=== PATIENT | male | born 1945 | race Caucasian/White ===

== ENCOUNTER 2016-11-15 09:15 | Day surgery (SDC) ==
[2016-11-15 10:39] LABS: INR 1.33; PROTIME 14.1 Seconds (9.2-11.7); PTT 29.6 Seconds (22.0-36.0)
[2016-11-15 14:33] VITALS: BP 102/68
--- NOTE | 2016-11-15 14:58 | Diag Imaging Result Document ---
PROCEDURE NAME: US PARACENTESIS - 11/15/2016 ULTRASOUND-GUIDED PARACENTESIS: FINDINGS: The risks and benefits of the procedure including the possibility of the bleeding, infection, or reaction to lidocaine were discussed with the patient and he agreed. Following sterile preparation of the skin anterolaterally over the right mid abdomen the abdominal fluid collection was punctured with a paracentesis catheter and 15 liters of slightly turbid yellow fluid was drained. The patient tolerated the procedure well and there were no immediate complications. IMPRESSION: Successful ultrasound-guided paracentesis.
== END 2016-11-15 15:00 | disposition home or self-care (01) ==
LOC: OPS 09:15
PROVIDERS: ATTEND Internal Medicine
DX: R18.8 Other ascites (principal); K74.60 Unspecified cirrhosis of liver; Z79.899 Other long term (current) drug therapy
CPT/HCPCS: 49083; 85610; 85730

== ENCOUNTER 2017-01-16 14:23 | Observation (INO) ==
[2017-01-16 15:09] LABS: URINE CULTURE NEEDED? NO; URINE MICRO REVIEW NEEDED? NO; URINE SOURCE CLEAN CATCH
[2017-01-16 15:13] LABS: BASO% 0.9 % (0.0-0.8); EOS# 0.12 X1000 (0.0-0.7); EOS% 3.7 % (0.0-10.0); HEMATOCRIT 28.2 % (42.0-52.0); HEMOGLOBIN 9.8 g/dL (14.0-18.0); LYMPH# 0.77 X1000 (1.2-3.4); LYMPH% 23.8 % (20.5-51.1); MANUAL DIFF NEEDED? NO; MCH 37.3 PG (27-31); MCHC 34.8 g/dL (33-37); MCV 107.2 FL (81-99); MONO# 0.23 X1000 (0.11-0.59); MONO% 7.1 % (1.7-9.3); MPV 10.2 FL (7.4-10.4); NEUT% 64.5 % (42.2-75.2); PLT 76 X1000 (130-400); RBC 2.63 XMIL (4.7-6.1)
[2017-01-16 15:13] LABS: BILIRUBIN URINE NEGATIVE (NEGATIVE); BLOOD URINE NEGATIVE (NEGATIVE); COLOR YELLOW; GLUCOSE URINE NEGATIVE (NEGATIVE); LEUKOCYTES URINE NEGATIVE (NEGATIVE); NITRITE URINE NEGATIVE (NEGATIVE); PH URINE 5.5; PROTEIN URINE TRACE mg/dL (NEGATIVE); TURBIDITY URINE CLEAR (CLEAR); UR EPITHELIAL CELLS <10 /HPF (<10); URINE BACTERIA NEGATIVE /HPF; URINE RBC <10 /HPF (<10); URINE WBC <10 /HPF (<10); UROBILINOGEN URINE NORMAL (NORMAL)
[2017-01-16 15:33] LABS: ALBUMIN 2.8 g/dL (3.5-5.0); CALCIUM 8.6 mg/dL (8.8-10.2); TOTAL BILIRUBIN 0.92 mg/dL (0.20-1.00); TOTAL PROTEIN 6.9 g/dL (6.3-8.3)
--- NOTE | 2017-01-16 16:52 | PROVIDER DOCUMENTATION ---
HPI-General Adult - General Chief Complaint: General Adult Stated Complaint: FLUID RETENTION Time Seen by Provider: 01/16/17 16:23 Source: patient, family (daughter) Allergies/Adverse Reactions: Patient Allergies Allergy/AdvReac Type Severity Reaction Status Date / Time No Known Allergies Allergy Verified 01/16/17 17:43 Home Medications: Home Medication List Medication Instructions Recorded Confirmed Last Taken Type Furosemide 40 mg PO DAILY PRN 12/06/16 01/16/17 01/15/17 08:00 History Multivitamins/Minerals [Centrum 1 each PO DAILY 12/06/16 01/16/17 01/15/17 08: 00 History Silver] Potassium Chloride 10 meq PO DAILY 12/06/16 01/16/17 01/15/17 08:00 History Tenofovir Disoproxil Fumarate 300 mg PO DAILY 12/06/16 01/16/17 01/15/17 08:00 History [Viread] Iron Carbonyl/Ascorbic Acid 1 each PO DAILY #30 tablet 12/21/16 01/16/17 08:00 Rx [Icar-C] Lactulose 45 ml PO TID@0900,1500,2100 #1 udc 12/21/16 01/16/17 01/15/17 08:00 Rx - History of Present Illness -Gen Adult Nature of Presenting Problems: Pt is 71 y/o M presents to the ED with fluid retention. Pt states having an appointment in [place] but did not make it due to Pt's daughter not having a tag on car. Pt's daughter states coming here instead. Pt states having 3 paracentesis. Pt states recently being d/c from [facility]. Location of Pain/Injury: reports: abdomen, lower extremity Pain Radiation: reports: no radiation Quality of Pain: reports: fullness Severity: reports: moderate Onset/Duration: reports: unsure Timing: reports: still present Context/Activities at Onset: reports: light activity Modifying Factors: improves with: nothing Associated Symptoms: reports: denies symptoms Similar Symptoms Previously?: Yes Recently seen or treated by another doctor?: No Review of Systems - Adult - REVIEW OF SYSTEMS - ADULT Constitutional: denies: chills, fever Eyes: denies: discharge, blurred vision, double vision Ears, Nose, Mouth & Throat: denies: ear pain, nose pain, throat pain Cardiovascular: denies: chest pain, heart murmur, irregular heart rate Respiratory: denies: cough, shortness of breath, wheezing Gastrointestinal: reports: abdominal pain. denies: diarrhea, nausea, vomiting Genitourinary: denies: dysuria, hematuria Musculoskeletal: denies: bone pain, joint pain, neck pain Integumentary: denies: hives, itching Neurological: denies: dizziness/vertigo, headache/migraines Psychiatric: reports: no symptoms reported Endocrine: reports: no symptoms reported Hematologic/Lymphatic: reports: no symptoms reported Allergic/Immunologic: reports: no symptoms reported All Other Systems: Reviewed and Negative Past History - Adult - PAST MEDICAL HISTORY-ADULT Review of Records: reports: Nursing Assessment Review, Medications Reviewed, Social history reviewed & non-contributory. Major Childhood Illnesses: reports: denies history Cardiovascular: reports: HTN, hyperlipidemia Respiratory: reports: denies history Gastrointestinal: reports: hepatitis (b), liver disease (cirrhosis) Obstetrical/Gynecological: reports: denies history Genitourinary: reports: denies history Musculoskeletal: reports: denies history Neurological: reports: denies history Endocrine/Immune: reports: Diabetes Other Conditions: reports: denies history - PRIOR SURGERIES/PROCEDURES Surgical/Procedure History: reports: reviewed, not pertinent - IMMUNIZATION STATUS Childhood Immunizations: See Nurse Assessment Flu Vaccine: See Nurse Assessment - FAMILY HISTORY Family History: reviewed, not pertinent - SOCIAL HISTORY Smoking: denies Substance Use: denies Living Situation: family Physical Exam-General - PHYSICAL EXAM-ADULT Initial Vital Signs Reviewed: Yes - CONSTITUTIONAL General Appearance: appears well, alert, mild distress - EYES Eyes: PERRL/EOMI, pink conjunctivae, fundi clear, no AV nicking - HEAD, EARS, NOSE, MOUTH & THROAT HENMT: normocephalic/atraumatic, moist mucous membranes, normal ENT inspection, TMs normal, pharynx normal - NECK Neck: non-tender, full range of motion, supple, normal inspection - RESPIRATORY Respiratory: chest non-tender, lungs clear, normal breath sounds, no pleuratic chest pain, no respiratory distress, no accessory muscle use - CARDIOVASCULAR Cardiovascular: normal peripheral pulses, regular rate, rhythm, no edema, no gallop, no JVD, no murmur - GASTROINTESTINAL (ABDOMEN) Abdominal Exam: normal bowel sounds, non tender, distended - LYMPHATIC Lymphatic: no adenopathy - MUSCULOSKELETAL Back Exam: normal inspection, no CVA tenderness, no vertebral tenderness Extremity: normal range of motion, non-tender, no calf tenderness, pelvis stable , pedal edema. negative: normal gait - SKIN Integumentary: normal color, normal turgor, warm/dry - NEUROLOGIC Neurologic: grossly normal - PSYCHIATRIC Psych/Mental Status: normal mood/affect. negative: oriented x 3 (oriented to place and person) Progress - PLAN OF CARE/RESULTS Progress/Plan/Lab Results: Laboratory Tests 01/16/17 01/16/17 01/16/17 14:58 14:59 14:59 WBC 3.23 L RBC 2.63 L Hgb 9.8 L Hct 28.2 L MCV 107.2 H MCH 37.3 H MCHC 34.8 RDW Std Deviation 15.0 H Plt Count 76 L MPV 10.2 Immature Gran % (Auto) 0.0 Neut % (Auto) 64.5 Lymph % (Auto) 23.8 Jack % (Auto) 7.1 Eos % (Auto) 3.7 Baso % (Auto) 0.9 H Immature Gran # (Auto) 0.00 Neut # (Auto) 2.08 Lymph # (Auto) 0.77 L Jack # (Auto) 0.23 Eos # (Auto) 0.12 Baso # (Auto) 0.03 Sodium 139 Potassium 4.0 Chloride 108 H Carbon Dioxide 22 L Anion Gap 9 BUN 39 H Creatinine 1.7 H Estimated GFR/1.73 m2 40 BUN/Creatinine Ratio 23 Glucose 181 H Calculated Osmolality 292 Calcium 8.6 L Total Bilirubin 0.92 AST 56 H ALT 41 Alkaline Phosphatase 122 Total Protein 6.9 Albumin 2.8 L Globulin 4.1 Albumin/Globulin Ratio 0.7 Amylase 104 Lipase 62 H Urine Source CLEAN CATCH Urine Color YELLOW Urine Turbidity CLEAR Urine pH 5.5 Ur Specific [place] 1.020 Urine Protein TRACE A Ur Glucose (Stick) NEGATIVE Ur Ketones (Stick) TRACE A Urine Blood NEGATIVE Urine Nitrite NEGATIVE Urine Bilirubin NEGATIVE Urobilinogen Dipstick NORMAL Urine Leukocytes NEGATIVE Urine WBC (Auto) <10 Urine RBC (Auto) <10 U Epithel Cells (Auto) <10 Urine Bacteria (Auto) NEGATIVE Orders Category Date Time Status Saline Loc DIRECTED Care 01/16/17 14:46 Active NPO Diet 01/16/17 14:46 Active AMYLASE [CHEM] Stat Lab 01/16/17 14:59 Completed CBC WITH ELECTRONIC DIFF [HEME] Stat Lab 01/16/17 14:59 Completed COMPREHENSIVE METABOLIC PANEL [CHEM] Stat Lab 01/16/17 14:59 Completed LIPASE [CHEM] Stat Lab 01/16/17 14:59 Completed PROTIME WITH INR [COAG] Stat Lab 01/16/17 14:59 Received PTT [COAG] Stat Lab 01/16/17 14:59 Received URINALYSIS W/POSS RFLX CULT [URINALYSIS] Stat Lab 01/16/17 14:58 Completed Vital Signs - 24 hr 01/16/17 14:41 Temperature 97.3 F L Pulse Rate 78 Respiratory 22 Rate Blood Pressure 115/84 O2 Sat by Pulse 100 Oximetry Laboratory Tests 01/16/17 01/16/17 01/16/17 14:58 14:59 14:59 WBC 3.23 L RBC 2.63 L Hgb 9.8 L Hct 28.2 L MCV 107.2 H MCH 37.3 H MCHC 34.8 RDW Std Deviation 15.0 H Plt Count 76 L MPV 10.2 Immature Gran % (Auto) 0.0 Neut % (Auto) 64.5 Lymph % (Auto) 23.8 Jack % (Auto) 7.1 Eos % (Auto) 3.7 Baso % (Auto) 0.9 H Immature Gran # (Auto) 0.00 Neut # (Auto) 2.08 Lymph # (Auto) 0.77 L Jack # (Auto) 0.23 Eos # (Auto) 0.12 Baso # (Auto) 0.03 PT INR PTT (Actin FS) Sodium 139 Potassium 4.0 Chloride 108 H Carbon Dioxide 22 L Anion Gap 9 BUN 39 H Creatinine 1.7 H Estimated GFR/1.73 m2 40 BUN/Creatinine Ratio 23 Glucose 181 H Calculated Osmolality 292 Calcium 8.6 L Total Bilirubin 0.92 AST 56 H ALT 41 Alkaline Phosphatase 122 Total Protein 6.9 Albumin 2.8 L Globulin 4.1 Albumin/Globulin Ratio 0.7 Amylase 104 Lipase 62 H Urine Source CLEAN CATCH Urine Color YELLOW Urine Turbidity CLEAR Urine pH 5.5 Ur Specific [place] 1.020 Urine Protein TRACE A Ur Glucose (Stick) NEGATIVE Ur Ketones (Stick) TRACE A Urine Blood NEGATIVE Urine Nitrite NEGATIVE Urine Bilirubin NEGATIVE Urobilinogen Dipstick NORMAL Urine Leukocytes NEGATIVE Urine WBC (Auto) <10 Urine RBC (Auto) <10 U Epithel Cells (Auto) <10 Urine Bacteria (Auto) NEGATIVE 01/16/17 14:59 WBC RBC Hgb Hct MCV MCH MCHC RDW Std Deviation Plt Count MPV Immature Gran % (Auto) Neut % (Auto) Lymph % (Auto) Jack % (Auto) Eos % (Auto) Baso % (Auto) Immature Gran # (Auto) Neut # (Auto) Lymph # (Auto) Jack # (Auto) Eos # (Auto) Baso # (Auto) PT 13.0 H INR 1.28 PTT (Actin FS) 26.7 Sodium Potassium Chloride Carbon Dioxide Anion Gap BUN Creatinine Estimated GFR/1.73 m2 BUN/Creatinine Ratio Glucose Calculated Osmolality Calcium Total Bilirubin AST ALT Alkaline Phosphatase Total Protein Albumin Globulin Albumin/Globulin Ratio Amylase Lipase Urine Source Urine Color Urine Turbidity Urine pH Ur Specific [place] Urine Protein Ur Glucose (Stick) Ur Ketones (Stick) Urine Blood Urine Nitrite Urine Bilirubin Urobilinogen Dipstick Urine Leukocytes Urine WBC (Auto) Urine RBC (Auto) U Epithel Cells (Auto) Urine Bacteria (Auto) Attestation - Scribe Verification/Attestation Scribe:: Miranda Draper Acting as Scribe for:: Jj Michael Scribe documention review:: This chart was documented by a scribe and accurately reflects the service the provider performed and the decisions made by the provider. - Scribe Verification/Attestation #2 Shift Change Time: 17:50 Scribe Name: Douglas Couch Acting as Scribe for:: Ruben Rosas
[2017-01-16 16:58] LABS: INR 1.28; PTT 26.7 Seconds (22.0-36.0)
--- NOTE | 2017-01-16 20:06 | HISTORY AND PHYSICAL ---
PRIMARY CARE PROVIDER: Dr. Montez Kumar. PRIMARY CAFETERIA DIRECTOR/DEVIL DOG: Reed Henriquez MD CHIEF COMPLAINT: Cirrhosis and fluid buildup in the abdomen. HISTORY OF PRESENT ILLNESS: Mr. Ndiaye is a 71-year-old male with past medical history of hepatitis C, cirrhosis end-stage, diabetes mellitus type 2, hypertension who states that he usually gets his stomach paracentesis about every 10-12 days. Normally he calls Dr. Henriquez's office and actually has it scheduled as outpatient. It is unknown of why he actually came to the ER this time. Apparently he had an appointment at [facility], but was unable to make it. His only complaint is that it is hard to bend over, makes it harder to breathe, but he is in no acute distress. He will be scheduled for paracentesis by ultrasound for in the morning. PAST MEDICAL HISTORY: Diabetes mellitus, hypertension, cirrhosis, end-stage, hepatitis C. CKD stage 3. SURGICAL HISTORY: Abdominal cyst removed and multiple paracenteses. SOCIAL HISTORY: Denies tobacco, alcohol or illicit drug use. FAMILY HISTORY: Father had unknown type of cancer. REVIEW OF SYSTEMS: Fourteen point review of systems were complete and all were negative except for those mentioned in above HPI. Denies fever or chills. ALLERGIES: No known drug allergies. HOME MEDICATIONS: Lasix 40 mg p.o. daily as needed. Centrum Silver 1 tablet daily, potassium chloride 10 mEq p.o. daily. Viread 300 mg p.o. daily. Icar 1 tab p.o. daily. Lactulose 40 mg p.o. 3 times daily. PERTINENT DATA: White blood cells 3000, hemoglobin 9.8, hematocrit 28.2, platelet count 276,000. INR 1.2. PTT is 26.7. Sodium 139, potassium 4, BUN 39, creatinine is 1.7, glucose 181, calcium 8.6, total bilirubin 0.92, AST 56, ALT 41, albumin 2.8, amylase 104, lipase 62. Urinalysis: Trace protein, trace ketones, and otherwise negative. IMAGING: None. PHYSICAL EXAMINATION: VITAL SIGNS: Temperature 97.3 degrees, heart rate 68, respiratory rate 17, blood pressure 123/86, O2 saturation 100% on room air. He is 6 feet 1 inch tall, 160 pounds. BMI 34.3. This is likely inaccurate given his volume. Bed weight showed 207 pounds. GENERAL: Mr. Ndiaye is a 71-year-old male, he is in no acute distress. Able to answer all questions appropriately. HEENT: Atraumatic, normocephalic. Pupils equal, round, reactive to light. Extraocular movements are intact. Sclerae with mild icterus, pale conjunctive. Mucous membranes are moist. NECK: No JVD or carotid bruits. Trachea is midline. CARDIOVASCULAR: S1, S2. Regular rate and rhythm. No rubs, gallops, or murmurs. PULMONARY: Clear to auscultation. Bilateral breath sounds. No accessory muscle use or work of breathing noted. Decreased in the bases secondary to abdominal distention. GI: Large, positive fluid shift, very distended, venous congestion in abdomen. Hypoactive bowel sounds with no hernia. : Voiding, no difficulties. EXTREMITIES: +2 pitting edema bilateral lower extremities. +1 dorsalis pedal pulses, +2 radial pulses. SKIN: Warm, dry, intact. NEUROLOGIC: Oriented, but difficult with recalling memory and health history. Oriented to place and person. ASSESSMENT AND PLAN: 1. Ascites secondary to end-stage cirrhosis related to hepatitis C. Continue Viread. Gastroenterology, Dr. Henriquez has been consulted and is requesting for ultrasound-guided paracentesis. His last paracentesis was in December and had a large amount drained. 2. Hepatic encephalopathy. Difficulties with memory recall. He is continued on lactulose, we will do an ammonia level for in the morning. 3. Iron-deficiency anemia also secondary to likely chronic kidney disease. 4. Diabetes mellitus type 2. Pattern blood glucoses. Is sliding scale insulin. 5. Chronic kidney disease stage 3, stable. Continue p.r.n. Lasix. 6. Hypertension, stable. 7. Deep venous thrombosis prophylaxis. We will do Sequential Compression Devices. 8. Gastrointestinal prophylaxis. Proton pump inhibitor. Dictated by ADELITA Castillo for Maxwell Bustillos MD
[2017-01-16] MEDS ORDERED: ZOFRAN IV PRN (22:22)
[2017-01-16] MEDS ORDERED: LASIX PO PRN (22:22)
[2017-01-16] MEDS ORDERED: D5 NS 1,000 ML IV SCH (22:30)
[2017-01-16] MEDS: HUMULIN R SUBQ SCH (23:05)
[2017-01-16] MEDS: LACTULOSE PO SCH (23:35)
[2017-01-17 06:46] LABS: BASO% 0.4 % (0.0-0.8); EOS# 0.18 X1000 (0.0-0.7); EOS% 6.5 % (0.0-10.0); HEMATOCRIT 27.2 % (42.0-52.0); HEMOGLOBIN 9.3 g/dL (14.0-18.0); LYMPH# 0.77 X1000 (1.2-3.4); LYMPH% 27.8 % (20.5-51.1); MANUAL DIFF NEEDED? YES; MCHC 34.2 g/dL (33-37); MCV 105.4 FL (81-99); MONO# 0.25 X1000 (0.11-0.59); MPV 10.6 FL (7.4-10.4); NEUT% 56.3 % (42.2-75.2); PLT 77 X1000 (130-400); RBC 2.58 XMIL (4.7-6.1)
[2017-01-17 06:56] LABS: INR 1.28; PTT 28.3 Seconds (22.0-36.0)
[2017-01-17 07:00] LABS: ALBUMIN 2.5 g/dL (3.5-5.0); CALCIUM 8.3 mg/dL (8.8-10.2); MAGNESIUM 2.5 mg/dL (1.5-2.7); POTASSIUM 3.7 mmol/L (3.5-5.1); TOTAL BILIRUBIN 1.02 mg/dL (0.20-1.00); TOTAL PROTEIN 6.3 g/dL (6.3-8.3)
[2017-01-17] MEDS ORDERED: PRILOSEC PO SCH (07:00)
[2017-01-17 07:05] LABS: EOS 4 % (1-10); LYMPHS 26 % (21-51); MONO 10 % (1-9)
--- NOTE | 2017-01-17 07:50 | EKG Report ---
Test Performed on : 01/17/2017 07:41:32 AM Test Reason : chest pain Blood Pressure : / mmHG Vent. Rate : 061 BPM Atrial Rate : 061 BPM P-R Int : 000 ms QRS Dur : 084 ms QT Int : 448 ms P-R-T Axes : 000 012 085 degrees QTc Int : 450 ms Junctional rhythm. Nonspecific T wave abnormality Abnormal ECG When compared with ECG of 07-JAN-2015 06:37, Junctional rhythm. has replaced Sinus rhythm. Nonspecific T wave abnormality, improved in Lateral leads Confirmed by Elmo TATE, Theodore Lester ([id number]) on 01/19/2017 1:14:27 PM
[2017-01-17] MEDS: HUMULIN R SUBQ SCH ×2 (08:00→11:30)
[2017-01-17] MEDS ORDERED: PATIENT'S OWN MED PO SCH (09:00)
[2017-01-17] MEDS ORDERED: ICAR-C PO SCH (09:00)
[2017-01-17] MEDS ORDERED: XIFAXAN PO SCH (09:00)
[2017-01-17] MEDS ORDERED: CENTRUM SILVER PO SCH (09:00)
[2017-01-17] MEDS ORDERED: KLOR-CON PO SCH (09:00)
[2017-01-17 09:23] VITALS: BP 100/75
[2017-01-17] MEDS ORDERED: ALBUMIN 25% IV ONE (10:46)
[2017-01-17] MEDS: LACTULOSE PO SCH (10:58)
--- NOTE | 2017-01-17 13:12 | Diag Imaging Result Document ---
PROCEDURE NAME: US PARACENTESIS - 01/17/2017 ULTRASOUND-GUIDED PARACENTESIS: COMPARISON: 12/20/2016. FINDINGS: Risks, benefits, and alternatives were discussed with the patient, and informed consent was obtained. The patient was prepped and draped in sterile fashion and local anesthesia was achieved with 1% lidocaine solution. Using ultrasound guidance, a large-bore catheter was inserted into the peritoneal cavity on the right and 14 L of straw-colored serous fluid was aspirated. There were no known complications. Dr. Henriquez was informed of the amount of fluid aspirated and albumin is to be administered intravenously. IMPRESSION: Technically successful ultrasound-guided paracentesis.
[2017-01-17 13:29] LABS: DIFF NEEDED? YES; WBC BF 26 /cumm
[2017-01-17 13:30] LABS: MONOS 96 %; POLYS 4 %
--- NOTE | 2017-01-17 18:13 | CONSULTATION ---
DATE OF CONSULTATION: 01/17/2017 ATTENDING PHYSICIAN: Dr. Sharp. PRIMARY CARE DOCTOR: Dr. Montez Kumar. REASON FOR CONSULTATION: Ascites and liver cirrhosis. HISTORY OF PRESENT ILLNESS: Mr. Ndiaye is a 71-year-old male, who has end-stage liver disease secondary to liver cirrhosis secondary to nonalcoholic steatohepatitis. He has been in and out of the hospital. He presented to the ER last night with worsening abdominal distention and feeling weak and tired and unable to bend over because of abdominal distention. Gastroenterology was consulted for further management. This morning he had ultrasound guided paracentesis done, 14 L was taken out. Postoperatively he is doing well. We are going to give him some IV albumin as he has gotten 14 L of fluid taken out. He denies any new complaints this morning. He missed his [facility] appointment which was scheduled for yesterday. He denies any nausea, vomiting, vomiting blood or passing blood in the stools. He does feel tired and fatigued which is part of chronic liver disease. PAST MEDICAL HISTORY: 1. Diabetes mellitus. 2. Hypertension. 3. 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 4. Hepatic encephalopathy. 5. Refractory ascites. 6. Pedal edema. 7. Thrombocytopenia. 8. Coagulopathy. 9. Hypoalbuminemia. 10. Muscle loss secondary to chronic liver disease. 11. Treated exposure to hepatitis C but has cleared, negative PCR. 12. Chronic kidney disease. 13. Esophageal varices grade 1. SURGICAL HISTORY: 1. Abdominal cyst removal. 2. EGD and colonoscopy. 3. Multiple paracenteses. SOCIAL HISTORY: Denies history of alcohol, tobacco or illicit drugs. 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 Lives at home with his . FAMILY HISTORY: Noncontributory. REVIEW OF SYSTEMS: Denies any current fevers, rigors, chills, chest pain, shortness of breath, dyspnea at rest. He does complain of feeling fatigue and tired. He also is losing his muscle mass and has limited mobility now. He denies any vomiting or passing blood in the stools or black stools. He has chronically elevated ammonia levels and but denies any new changes in his neurological status. MEDICATIONS IN THE HOSPITAL: Include Lasix, Zofran, multivitamin, sliding- scale Humulin insulin, Iron C, lactulose t.i.d., potassium chloride, Prilosec, Xifaxan, and IV fluids with dextrose 5% 50 mL/h. Albumin 100 g IV once. He is on diabetic diet.Vitals: Temperature of 98.9 degrees, pulse rate of 69, respiratory rate of 17, blood pressure 100/75, saturating 99% on room air. His body weight is 260 pounds. General appearance: Thinly built, lying in bed, in no acute distress. HEENT: Pale conjunctivae, mild icterus. Pupils equal, react to light and accommodation. Neck: Supple. Chest : Decreased breath sounds at the bases Cardiac: Regular rhythm. No murmur. Abdomen: After paracentesis abdomen is flat. No distention noted. No guarding. No rebound. Bowel sounds are present. Extremities: No cyanosis, clubbing, and there is bilateral lower extremity edema noted. Neurologic: He is alert, awake, and answers simple questions. LABS: His white count 2.7, hemoglobin and hematocrit is 9.3, 27.2, platelet count of 77,000. Sodium of 140, potassium 3.7, chloride 109, bicarb 20, anion gap of 11, BUN of 37, creatinine 1.4, glucose of 80, calcium is 8.3, total bilirubin is 1.02. AST 56, ALT 37, alkaline phosphatase is 94. Total protein 6.3, albumin of 2.5, ammonia 106, lipase of 62, amylase of 104. INR 1.28, PT of 13, PTT of 28.3. Urinalysis showing trace protein, trace ketones. IMPRESSION AND PLAN: 1. End-stage liver disease secondary to fatty liver disease. Complicated by refractory ascites, coagulopathy, thrombocytopenia, anemia, hypoalbuminemia and loss of muscle mass. Admitted for worsening ascites. He is status post paracentesis at 14 L removed by the radiologist. In this regard we will watch him closely for 4-6 hours to watch his vitals. We will give 1 dose of albumin 100 g IV once today and we will continue on his home medications. 2. Patient was recommended to follow with us in clinic in 4 weeks of discharge. 3. The patient is also encouraged to keep an appointment at [facility] so as to be evaluated for liver transplant evaluation. 4. GI prophylaxis, Protonix once daily. 5. We will start his hepatic diet, cardiac diabetic diet. 6. We will continue on lactulose 45 mL t.i.d. and start him on Xifaxan for hepatic encephalopathy and hyperammonemia. 7. Diabetes mellitus being managed by the primary care team. BREE
--- NOTE | 2017-01-18 12:06 | DISCHARGE SUMMARY ---
ADMISSION DATE: 01/16/2017 DISCHARGE DATE: 01/17/2017 PERTINENT PROCEDURES: Ultrasound-guided paracentesis where 14 L of straw colored serous fluid was aspirated. DISCHARGE DIAGNOSES: 1. Ascites secondary to end-stage cirrhosis related to hepatitis C. Patient underwent an ultrasound-guided paracentesis where they removed 14 L. After the paracentesis Dr. Henriquez ordered 100 g of albumin IV and then okay to DC home and follow up with him in 1 month in his office. 2. Hepatic encephalopathy. Continued on lactulose. 3. Iron deficiency anemia secondary to CKD. 4. Diabetes mellitus type 2. Continue with home regimen. 5. Chronic kidney disease stage 3, stable. 6. Hypertension stable. 7. Bilateral heel wounds on arrival. Wound care nurse saw, ordered Mepilex gel to the left heal and cover with dressing of your choice for 3 days. [place] [facility] has been notified of this order. HOSPITAL COURSE: Briefly Mr. Ndiaye is a 71-year-old male with past medical history of hepatitis C, cirrhosis end-stage, diabetes mellitus type 2, hypertension, known to our service. Patient usually gets a paracentesis every 10-12 days. Normally he calls Dr. Henriquez's office and they schedule him as outpatient. The patient on his previous discharge was supposed to be scheduled for an appointment with [facility] but he was unable to make it. His only complaint is that it was hard to bend over, makes it hard for him to breathe but he was in no acute distress. He was scheduled for a paracentesis by ultrasound in the morning. Patient did undergo ultrasound- guided paracentesis where they removed 14 L of straw colored fluid. Dr. Henriquez was made aware. He ordered albumin for the patient and after 1400 the patient could be discharged home. Dr. Sharp has assessed the patient and still feels he is appropriate for discharge home. He will follow up with Dr. Henriquez in 1 month. VITAL SIGNS: Temperature is 97.4 degrees, heart rate 69, respirations 18, blood pressure 100/75, O2 is 99% on room air. DISCHARGE DIET: Diabetic. DISCHARGE MEDICATIONS: 1. Lasix 40 mg p.o. daily p.r.n. 2. Centrum Silver 1 each p.o. daily. 3. Potassium chloride 10 mEq p.o. daily. 4. Viread 300 mg p.o. daily. 5. Icar-C 1 each p.o. daily. 6. Lactulose 45 mL t.i.d. p.o. FOLLOWUP: The patient is being discharged home. He will follow up with Dr. Henriquez in 1 month. Again Multidex gel to left heel and cover with dressing of her choice every 3 days. [place] at [facility] has been notified of this order. Patient can return to the ED for worsening of symptoms. Discharge 35 minutes. Dictated by ADELITA Lala for Benjamín Morales MD MTDD
== END 2017-01-17 14:53 | disposition home health service (06) ==
LOC: ED 14:23 → INTOOBSV 19:52 → EDIPHOLD 19:52
PROVIDERS: ATTEND Internal Medicine
DX: K74.69 Other cirrhosis of liver (principal); I85.10 Secondary esophageal varices without bleeding; R18.8 Other ascites; E11.22 Type 2 diabetes mellitus with diabetic chronic kidney disease; D68.9 Coagulation defect, unspecified; K72.90 Hepatic failure, unspecified without coma; D63.1 Anemia in chronic kidney disease; I12.9 Hypertensive chronic kidney disease with stage 1 through stage 4 chronic kidney disease, or unspecified chronic kidney disease; D69.6 Thrombocytopenia, unspecified; N18.3 Chronic kidney disease, stage 3 (moderate); E88.09 Other disorders of plasma-protein metabolism, not elsewhere classified; K75.81 Nonalcoholic steatohepatitis (NASH); E72.4 Disorders of ornithine metabolism; M62.50 Muscle wasting and atrophy, not elsewhere classified, unspecified site; S91.301A Unspecified open wound, right foot, initial encounter; S91.302A Unspecified open wound, left foot, initial encounter; R60.0 Localized edema; R10.9 Unspecified abdominal pain; Z86.19 Personal history of other infectious and parasitic diseases; Z79.899 Other long term (current) drug therapy; Z80.9 Family history of malignant neoplasm, unspecified
CPT/HCPCS: 36415; 49083; 80053; 81001; 82042; 82140; 82150; 82948; 83690; 83735; 84157; 85025; 85610; 85730; 87070; 87075; 87116; 87206; 88112; 89051; 93005; 96374; G0378; J7042; P9047

== ENCOUNTER 2017-02-16 17:08 | Inpatient (IN) ==
[2017-02-16 17:41] LABS: BE -0.7 mmoll (-3.0-3.0); BLOOD TYPE ARTERIAL; DRAW SITE R RADIAL; METHB 1.4 % (0.0-1.5); O2(CT) 12.3 mL/dL (15.0-23.0); PCO2(98.6) 30 mmHg (35-45); PO2(98.6) 87 mmHg (60-100); SAMPLE BLOOD; SAO2 99.8 % (95.0-100.0); pH(98.6) 7.48 (7.35-7.45)
[2017-02-16 17:47] LABS: ALLEN TEST YES; MODALITY ROOM AIR
[2017-02-16 17:48] LABS: MANUAL DIFF NEEDED? NO
--- NOTE | 2017-02-16 18:03 | PROVIDER DOCUMENTATION ---
This chart was entered by Miranda Draper Scribe, acting as scribe for Peter Guevara DO. HPI-Head Injury - General Chief Complaint: Fall Time Seen by Provider: 02/16/17 17:15 Source: patient Allergies/Adverse Reactions: Patient Allergies Allergy/AdvReac Type Severity Reaction Status Date / Time No Known Allergies Allergy Verified 01/16/17 17:43 Home Medications: Home Medication List Medication Instructions Recorded Confirmed Last Taken Type Furosemide 40 mg PO DAILY PRN 12/06/16 02/01/17 01/31/17 09:00 History Multivitamins/Minerals [Centrum 1 each PO DAILY 12/06/16 02/01/17 01/31/17 09: 00 History Silver] Potassium Chloride 10 meq PO DAILY 12/06/16 02/01/17 01/31/17 09:00 History Tenofovir Disoproxil Fumarate 300 mg PO DAILY 12/06/16 02/01/17 01/31/17 09:00 History [Viread] Iron Carbonyl/Ascorbic Acid 1 each PO DAILY #30 tablet 12/21/16 02/01/17 09:00 Rx [Icar-C] Lactulose 45 ml PO TID@0900,1500,2100 #1 udc 12/21/16 02/01/17 01/31/17 17:00 Rx - History of Present Illness-Head Injury Nature of Presenting Problem: Pt is 71 y/o M presents to the ED with head injury. Pt states fell and hit head. Pt states LOC. Pt denies V. Head Injury Location: reports: frontal Other injuries associated with incident:: reports: none Quality of Pain: reports: aching Severity: reports: mild Onset/Duration: reports: just prior to arrival Timing: reports: still present Method of Injury: reports: fell Any recent trauma/injury?: reports: minor, to head Loss of Consciousness: prolonged (minutes) Modifying Factors: improves with: nothing Injury Associated Symptoms: reports: denies symptoms Locality of Occurance: Home Similar Symptoms Previously?: No Recently seen or treated by another doctor?: No Review of Systems - Adult - REVIEW OF SYSTEMS - ADULT Constitutional: reports: no symptoms reported Eyes: reports: no symptoms reported Ears, Nose, Mouth & Throat: reports: no symptoms reported Cardiovascular: reports: no symptoms reported Respiratory: reports: no symptoms reported Gastrointestinal: reports: no symptoms reported Genitourinary: reports: no symptoms reported Musculoskeletal: reports: no symptoms reported Integumentary: reports: no symptoms reported, other (lac to R side forehead). denies: hives, itching Neurological: reports: headache/migraines (BOLDEN). denies: dizziness/vertigo, syncope Psychiatric: reports: no symptoms reported Endocrine: reports: no symptoms reported Hematologic/Lymphatic: reports: no symptoms reported Allergic/Immunologic: reports: no symptoms reported All Other Systems: Reviewed and Negative Past History - Adult - PAST MEDICAL HISTORY-ADULT Review of Records: reports: Nursing Assessment Review, Medications Reviewed, Social history reviewed & non-contributory. Major Childhood Illnesses: reports: denies history Cardiovascular: reports: HTN, hyperlipidemia Respiratory: reports: denies history Gastrointestinal: reports: hepatitis (b), liver disease (cirrhosis) Obstetrical/Gynecological: reports: denies history Genitourinary: reports: denies history Musculoskeletal: reports: denies history Neurological: reports: denies history Endocrine/Immune: reports: Diabetes Other Conditions: reports: denies history - PRIOR SURGERIES/PROCEDURES Surgical/Procedure History: reports: reviewed, not pertinent - IMMUNIZATION STATUS Childhood Immunizations: See Nurse Assessment Flu Vaccine: See Nurse Assessment - FAMILY HISTORY Family History: reviewed, not pertinent - SOCIAL HISTORY Smoking: denies Substance Use: denies Living Situation: family Physical Exam- Neurological - Physical Exam-Neuro Initial Vital Signs Reviewed: Yes General Appearance: alert, no apparent distress. negative: appears well (ill in appearance) Eye Exam: bilateral eye: normal inspection, PERRL, EOMI HENMT: normocephalic/atraumatic, moist mucous membranes, normal ENT inspection, TMs normal, pharynx normal Head Injury: lacerations (R side of forehead) Neck: non-tender, full range of motion, supple, normal inspection Respiratory: chest non-tender, lungs clear, normal breath sounds, no pleuratic chest pain, no respiratory distress, no accessory muscle use Cardiovascular: normal peripheral pulses, regular rate, rhythm, no edema, no gallop, no JVD, no murmur Abdominal Exam: no organomegaly, no pulsatile mass, distended, guarding, tenderness (generalized), other (tight abdomen) Lymphatic: no adenopathy Extremity: normal range of motion, no calf tenderness, swelling (bilateral legs L > R), 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 Exam: normal hearing, normal speech, PERRL Motor/Sensory: no motor deficit, no sensory deficit, no pronator drift Neurologic: grossly normal Integumentary: normal color, normal turgor, warm/dry Psych/Mental Status: normal mood/affect Progress - PLAN OF CARE/RESULTS Progress/Plan/Lab Results: Laboratory Results - last 24 hr 02/16/17 02/16/17 02/16/17 17:25 17:39 17:39 WBC RBC Hgb Hct MCV MCH MCHC RDW Std Deviation Plt Count MPV Immature Gran % (Auto) Neut % (Auto) Lymph % (Auto) [place] % (Auto) Eos % (Auto) Baso % (Auto) Immature Gran # (Auto) Neut # (Auto) Lymph # (Auto) [place] # (Auto) Eos # (Auto) Baso # (Auto) PT INR APTT (Factor Assay) D-Dimer Specimen Type ARTERIAL Sample Site R RADIAL pH 7.48 H pCO2 30 L pO2 87 HCO3 24.4 Base Excess -0.7 Oxyhemoglobin 96.3 ABG O2 Sat (Calculated) 12.3 L ABG O2 Saturation 99.8 ABG Carboxyhemoglobin 2.10 ABG Methemoglobin 1.4 Theodore Test YES A-a O2 Difference 25.0 Total Hemoglobin 9.0 L Lactate 2.40 H Blood Gas Modality ROOM AIR FiO2 % 21.0 Sodium 136 Potassium 3.5 Chloride 104 Carbon Dioxide 21 L Anion Gap 12 BUN 46 H Creatinine 1.7 H Estimated GFR/1.73 m2 40 BUN/Creatinine Ratio 27 Glucose 226 H Calculated Osmolality 291 Calcium 8.4 L Magnesium 2.5 Total Bilirubin 1.30 H AST 38 H ALT 24 Alkaline Phosphatase 141 H Ammonia Creatine Kinase 100 Troponin T 0.071 [id number]-Lgocphysmue Pept Total Protein 6.5 Albumin 2.4 L Globulin 4.0 Albumin/Globulin Ratio 1.0 Plasma Lactate Vitamin B12 TSH Free T4 Urine Source Urine Color Urine Clarity Urine pH Ur Specific Rice Urine Protein Urine Ketones Urine Blood Urine Nitrite Urine Bilirubin Urine Urobilinogen Urine Microscopic RBC Urine WBC Urine Microscopic WBC Ur Epithelial Cells Urine Crystals Urine Bacteria Urine Casts Urine Yeast Urine Glucose Urine Opiates Screen Ur Oxycodone Screen Urine Methadone Screen Ur Barbituates Screen Ur Tricyclics Screen Ur Phencyclidine Scrn Ur Amphetamines Screen U Methamphetamines Scrn Urine MDMA Screen U Benzodiazepines Scrn Urine Cocaine Screen U Cannabinoids Screen Plasma/Serum Ethyl Alc 02/16/17 02/16/17 02/16/17 17:39 17:39 17:39 WBC 5.69 RBC 2.46 L Hgb 9.1 L Hct 26.3 L MCV 106.9 H MCH 37.0 H MCHC 34.6 RDW Std Deviation 14.0 Plt Count 123 L MPV 9.8 Immature Gran % (Auto) 0.2 Neut % (Auto) 74.9 Lymph % (Auto) 12.0 L [place] % (Auto) 7.9 Eos % (Auto) 3.9 Baso % (Auto) 1.1 H Immature Gran # (Auto) 0.01 Neut # (Auto) 4.27 Lymph # (Auto) 0.68 L [place] # (Auto) 0.45 Eos # (Auto) 0.22 Baso # (Auto) 0.06 PT 16.8 H INR 1.33 H APTT (Factor Assay) 36.0 D-Dimer 12.85 H Specimen Type Sample Site pH pCO2 pO2 HCO3 Base Excess Oxyhemoglobin ABG O2 Sat (Calculated) ABG O2 Saturation ABG Carboxyhemoglobin ABG Methemoglobin Theodore Test A-a O2 Difference Total Hemoglobin Lactate Blood Gas Modality FiO2 % Sodium Potassium Chloride Carbon Dioxide Anion Gap BUN Creatinine Estimated GFR/1.73 m2 BUN/Creatinine Ratio Glucose Calculated Osmolality Calcium Magnesium Total Bilirubin AST ALT Alkaline Phosphatase Ammonia Creatine Kinase Troponin T Xqi-[id number]-Nhgsidwgzbd Pept 730 H Total Protein Albumin Globulin Albumin/Globulin Ratio Plasma Lactate Vitamin B12 TSH Free T4 Urine Source Urine Color Urine Clarity Urine pH Ur Specific Rice Urine Protein Urine Ketones Urine Blood Urine Nitrite Urine Bilirubin Urine Urobilinogen Urine Microscopic RBC Urine WBC Urine Microscopic WBC Ur Epithelial Cells Urine Crystals Urine Bacteria Urine Casts Urine Yeast Urine Glucose Urine Opiates Screen Ur Oxycodone Screen Urine Methadone Screen Ur Barbituates Screen Ur Tricyclics Screen Ur Phencyclidine Scrn Ur Amphetamines Screen U Methamphetamines Scrn Urine MDMA Screen U Benzodiazepines Scrn Urine Cocaine Screen U Cannabinoids Screen Plasma/Serum Ethyl Alc 02/16/17 02/16/17 02/16/17 17:39 17:39 17:39 WBC RBC Hgb Hct MCV MCH MCHC RDW Std Deviation Plt Count MPV Immature Gran % (Auto) Neut % (Auto) Lymph % (Auto) [place] % (Auto) Eos % (Auto) Baso % (Auto) Immature Gran # (Auto) Neut # (Auto) Lymph # (Auto) [place] # (Auto) Eos # (Auto) Baso # (Auto) PT INR APTT (Factor Assay) D-Dimer Specimen Type Sample Site pH pCO2 pO2 HCO3 Base Excess Oxyhemoglobin ABG O2 Sat (Calculated) ABG O2 Saturation ABG Carboxyhemoglobin ABG Methemoglobin Theodore Test A-a O2 Difference Total Hemoglobin Lactate Blood Gas Modality FiO2 % Sodium Potassium Chloride Carbon Dioxide Anion Gap BUN Creatinine Estimated GFR/1.73 m2 BUN/Creatinine Ratio Glucose Calculated Osmolality Calcium Magnesium Total Bilirubin AST ALT Alkaline Phosphatase Ammonia 95 H Creatine Kinase Troponin T Can-[id number]-Lbhayatqwvm Pept Total Protein Albumin Globulin Albumin/Globulin Ratio Plasma Lactate Vitamin B12 > 2000 H TSH 1.34 Free T4 0.95 Urine Source Urine Color Urine Clarity Urine pH Ur Specific Rice Urine Protein Urine Ketones Urine Blood Urine Nitrite Urine Bilirubin Urine Urobilinogen Urine Microscopic RBC Urine WBC Urine Microscopic WBC Ur Epithelial Cells Urine Crystals Urine Bacteria Urine Casts Urine Yeast Urine Glucose Urine Opiates Screen Ur Oxycodone Screen Urine Methadone Screen Ur Barbituates Screen Ur Tricyclics Screen Ur Phencyclidine Scrn Ur Amphetamines Screen U Methamphetamines Scrn Urine MDMA Screen U Benzodiazepines Scrn Urine Cocaine Screen U Cannabinoids Screen Plasma/Serum Ethyl Alc 02/16/17 02/16/17 02/16/17 17:39 18:44 18:44 WBC RBC Hgb Hct MCV MCH MCHC RDW Std Deviation Plt Count MPV Immature Gran % (Auto) Neut % (Auto) Lymph % (Auto) [place] % (Auto) Eos % (Auto) Baso % (Auto) Immature Gran # (Auto) Neut # (Auto) Lymph # (Auto) [place] # (Auto) Eos # (Auto) Baso # (Auto) PT INR APTT (Factor Assay) D-Dimer Specimen Type Sample Site pH pCO2 pO2 HCO3 Base Excess Oxyhemoglobin ABG O2 Sat (Calculated) ABG O2 Saturation ABG Carboxyhemoglobin ABG Methemoglobin Theodore Test A-a O2 Difference Total Hemoglobin Lactate Blood Gas Modality FiO2 % Sodium Potassium Chloride Carbon Dioxide Anion Gap BUN Creatinine Estimated GFR/1.73 m2 BUN/Creatinine Ratio Glucose Calculated Osmolality Calcium Magnesium Total Bilirubin AST ALT Alkaline Phosphatase Ammonia Creatine Kinase Troponin T Odb-[id number]-Teuutqmajmx Pept Total Protein Albumin Globulin Albumin/Globulin Ratio Plasma Lactate 2.7 H Vitamin B12 TSH Free T4 Urine Source CLEAN CATCH Urine Color YELLOW Urine Clarity CLEAR Urine pH 6.5 Ur Specific Rice 1.010 Urine Protein TRACE A Urine Ketones NEGATIVE Urine Blood NEGATIVE Urine Nitrite NEGATIVE Urine Bilirubin NEGATIVE Urine Urobilinogen NORMAL Urine Microscopic RBC Not Reportable Urine WBC 1+ A Urine Microscopic WBC <10 Ur Epithelial Cells <10 Urine Crystals NONE SEEN Urine Bacteria 1+ Urine Casts NONE SEEN Urine Yeast NONE SEEN Urine Glucose NEGATIVE Urine Opiates Screen NONE DETECTED Ur Oxycodone Screen NONE DETECTED Urine Methadone Screen NONE DETECTED Ur Barbituates Screen NONE DETECTED Ur Tricyclics Screen NONE DETECTED Ur Phencyclidine Scrn NONE DETECTED Ur Amphetamines Screen NONE DETECTED U Methamphetamines Scrn NONE DETECTED Urine MDMA Screen NONE DETECTED U Benzodiazepines Scrn NONE DETECTED Urine Cocaine Screen NONE DETECTED U Cannabinoids Screen NONE DETECTED Plasma/Serum Ethyl Alc Orders Category Date Time Status Admit - [facility] Routine AdmDCTranf 02/16/17 21:01 Ordered Activity - Strict Bedrest ORDERED Care 02/16/17 21:00 Active Call Admitting on Arrival AT ADMISSION Care 02/16/17 21:01 Active Cardiac Monitoring DIRECTED Care 02/16/17 17:21 Active Neurological Check Q4H Care 02/16/17 21:01 Active Saline Loc DIRECTED Care 02/16/17 21:00 Active Saline Loc NOW Care 02/16/17 17:21 Active Vital Signs Order ARRIVAL TO ROOM Care 02/16/17 21:00 Active NPO Diet 02/16/17 21:02 Active ABDOMEN/PELVIS W/O CONTRAST [CT] Stat Exams 02/16/17 17:23 Completed CHEST-2 VIEWS [RAD] Stat Exams 02/16/17 17:[address] THORAX W/O CONTRAST [CT] Stat Exams 02/16/17 18:57 Completed HEAD/C-SPINE W/O CONTRAST [CT] Stat Exams 02/16/17 17:23 Completed ABG [RESP] Routine Lab 02/16/17 17:25 Completed ALCOHOL BLOOD Stat Lab 02/16/17 17:39 Completed AMMONIA [CHEM] Stat Lab 02/16/17 17:39 Completed CBC WITH ELECTRONIC DIFF [HEME] Stat Lab 02/16/17 17:39 Completed CK PROFILE [SP CHEM] Stat Lab 02/16/17 17:39 Completed COMPREHENSIVE METABOLIC PANEL [CHEM] Stat Lab 02/16/17 17:39 Completed D-DIMER PL [COAG] Stat Lab 02/16/17 17:39 Completed FREE T4 Stat Lab 02/16/17 17:39 Completed LACTATE, PLASMA [CHEM] Stat Lab 02/16/17 17:39 Completed MAGNESIUM [CHEM] Stat Lab 02/16/17 17:39 Completed PRO B-NATRIURETIC PEPTIDE Stat Lab 02/16/17 17:39 Completed PROTIME WITH INR PL [COAG] Stat Lab 02/16/17 17:[address] [COAG] Stat Lab 02/16/17 17:39 Completed TROPONIN T Stat Lab 02/16/17 17:39 Completed TSH Stat Lab 02/16/17 17:[address] W/POSS RFLX CULT [URINALYSIS] Stat Lab 02/16/17 18:44 Completed URINE CULTURE [RM] Routine Lab 02/16/17 19:51 Received URINE DRUG SCREEN PL Stat Lab 02/16/17 18:44 Completed VITAMIN B12 Stat Lab 02/16/17 17:39 Completed Ketorolac [Toradol] Med 02/16/17 21:00 Active 15 mg IV Q4H PRN PRN Ondansetron [Zofran] Med 02/16/17 21:00 Active 4 mg IV Q4H PRN PRN Oxygen Device Routine Oth 02/16/17 21:01 Completed Telemetry [OM.EQ] Routine Oth 02/16/17 21:00 Active EKG [EKG] Stat Ther 02/16/17 17:21 Draft Transfer/Admit Order [TRANSFER] Routine Transfer 02/16/17 21:02 Completed Result Diagrams: 02/17/17 05:56 02/17/17 05:56 - EKG 1 Time of EKG reading by physician:: 17:28 EKG Read and Signed by:: Peter Guevara EKG Interpretation (*Must complete 3 of following elements*): Abnormal Rate: 72 Rhythm: normal sinus rhythm Comments: nonspecific T wave abnormality Departure - Departure Time of Disposition Decision: 17:20 DIAGNOSIS: Head injury Disposition: HOME 01 Certified Medical Emergency: Emergent Condition: Good This chart was documented by the indicated scribe, (Miranda Draper Scribe) and accurately reflects the services I performed and decisions made by , Peter Guevara, , as attested by the provider's signature.
[2017-02-16 18:05] LABS: BASO% 1.1 % (0.0-0.8); EOS# 0.22 X1000 (0.0-0.7); EOS% 3.9 % (0.0-10.0); HEMATOCRIT 26.3 % (42.0-52.0); HEMOGLOBIN 9.1 g/dL (14.0-18.0); IMM GRAN# 0.01 X1000 (0.0-0.04); IMM GRAN% 0.2 % (0.0-0.5); LYMPH# 0.68 X1000 (1.2-3.4); MCHC 34.6 g/dL (33-37); MCV 106.9 FL (81-99); MONO# 0.45 X1000 (0.11-0.59); MONO% 7.9 % (1.7-9.3); MPV 9.8 FL (7.4-10.4); NEUT% 74.9 % (42.2-75.2); PLT 123 X1000 (130-400); RBC 2.46 XMIL (4.7-6.1)
[2017-02-16 18:20] LABS: INR 1.33 (0.86-1.15); PROTIME 16.8 Seconds (12.1-15.5)
[2017-02-16 18:22] LABS: ALBUMIN 2.4 g/dL (3.5-5.0); CALCIUM 8.4 mg/dL (8.8-10.2); MAGNESIUM 2.5 mg/dL (1.5-2.7); POTASSIUM 3.5 mmol/L (3.5-5.1); TOTAL BILIRUBIN 1.3 mg/dL (0.20-1.00); TOTAL PROTEIN 6.5 g/dL (6.3-8.3)
[2017-02-16 18:33] LABS: FREE T4 0.95 ng/dL (0.93-1.70)
--- NOTE | 2017-02-16 18:50 | Diag Imaging Result Document ---
PROCEDURE NAME: HEAD/C-SPINE W/O CONTRAST - 02/16/2017 CT OF THE HEAD WITHOUT CONTRAST: FINDINGS: A dose reduction protocol was used. No comparison exam. There is no evidence of intracranial hemorrhage, mass effect, midline shift, or hydrocephalus. There are mild atrophic changes. There is no evidence of infarct, although acute infarcts may not be immediately visible. There is no skull fracture. IMPRESSION: No visible acute process. No evidence of intracranial injury. CT CERVICAL SPINE WITHOUT CONTRAST: FINDINGS: A dose reduction protocol was used. Axial and reformatted sagittal and coronal images are obtained. No comparison exam. 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 There is severe multilevel degenerative disease. There is no fracture identified. There is no subluxation seen. There is no precervical soft tissue swelling seen. IMPRESSION: 1. Fusion of the C2 and C3 vertebra. Severe multilevel degenerative disease. 2. No evidence of fracture or subluxation.
--- NOTE | 2017-02-16 18:57 | EKG Report ---
Test Performed on : 02/16/2017 5:28:50 PM Test Reason : CHEST PAIN Blood Pressure : / mmHG Vent. Rate : 072 BPM Atrial Rate : 072 BPM P-R Int : 114 ms QRS Dur : 082 ms QT Int : 418 ms P-R-T Axes : 024 021 029 degrees QTc Int : 457 ms Normal sinus rhythm. Nonspecific T wave abnormality Abnormal ECG When compared with ECG of 17-JAN-2017 07:41, Sinus rhythm. has replaced Junctional rhythm. Unconfirmed Result
[2017-02-16 19:23] LABS: UR AMPHETAMINES QUAL NONE DETECTED (NONE DETECT); UR BARBITUATES QUAL NONE DETECTED (NONE DETECT); UR BENZODIAZEPIN QUAL NONE DETECTED (NONE DETECT); UR CANNABINOIDS QUAL NONE DETECTED (NONE DETECT); UR COCAINE QUAL NONE DETECTED (NONE DETECT); UR MDMA QUAL NONE DETECTED (NONE DETECT); UR METHADONE QUAL NONE DETECTED (NONE DETECT); UR METHAMPHETAMINE QUAL NONE DETECTED (NONE DETECT); UR OPIATES QUAL NONE DETECTED (NONE DETECT); UR OXYCODONE QUAL NONE DETECTED (NONE DETECT); UR PCP QUAL NONE DETECTED (NONE DETECT); UR TCA QUAL NONE DETECTED (NONE DETECT)
[2017-02-16 19:38] LABS: BILIRUBIN URINE NEGATIVE (NEGATIVE); BLOOD URINE NEGATIVE (NEGATIVE); CLARITY CLEAR (CLEAR); COLOR YELLOW; GLUCOSE URINE NEGATIVE (NEGATIVE); LEUKOCYTES URINE 1+ (NEGATIVE); NITRITE URINE NEGATIVE (NEGATIVE); PH URINE 6.5; PROTEIN URINE TRACE mg/dL (NEGATIVE); UROBILINOGEN URINE NORMAL
--- NOTE | 2017-02-16 19:38 | Diag Imaging Result Document ---
PROCEDURE NAME: ABDOMEN/PELVIS W/O CONTRAST - 02/16/2017 CT ABDOMEN AND PELVIS WITHOUT CONTRAST: FINDINGS: No contrast administered per request of the referring provider. A dose reduction protocol was used. Compared with 10/01/2016. There is limitation of detail due to the lack of administered contrast. There is mild subsegmental atelectasis at the visualized lung bases. There is a large amount of ascites which is increased. There are no gross acute changes identified in the liver, spleen, or pancreas. There are tiny gallstones or dense sludge in the gallbladder. There is no renal stone or hydronephrosis identified. There is no evidence of bowel obstruction. There is colonic diverticulosis. There is no diverticulitis identified. There is no abscess identified. There is no free air. IMPRESSION: 1. Large amount of ascites. 2. Tiny gallstones versus dense sludge in gallbladder. 3. No evidence of renal stone or hydronephrosis. 4. No bowel obstruction. Uncomplicated colonic diverticulosis. No abscess. No free air.
[2017-02-16 19:50] LABS: URINE WBC <10 /HPF (<10)
[2017-02-16 19:51] LABS: URINE CAST NONE SEEN /LPF; URINE CRYSTAL NONE SEEN /HPF; URINE CULTURE PL NEEDED? YES; URINE EPITHELIAL CELLS <10 /HPF (<10); URINE SOURCE CLEAN CATCH
--- NOTE | 2017-02-16 20:00 | Diag Imaging Result Document ---
PROCEDURE NAME: CT THORAX W/O CONTRAST - 02/16/2017 CT THORAX WITHOUT CONTRAST: FINDINGS: No contrast administered per request of the referring provider. A dose reduction protocol was used. No comparison CT thorax is available. There is some limitation of detail due to the lack of administered intravenous contrast. There are scattered linear atelectasis or scarring. There are right upper lobe calcified granuloma and calcified right hilar and mediastinal lymph nodes from old granulomatous disease. There is no consolidation, substantial pleural effusion, or pneumothorax identified. There is no mediastinal hematoma or pericardial fluid identified. The visualized bony structures appear grossly intact. IMPRESSION: Scattered linear atelectasis or scarring. No other evidence of acute disease. No evidence of injury to the thorax.
--- NOTE | 2017-02-16 20:08 | Diag Imaging Result Document ---
PROCEDURE NAME: CHEST-2 VIEWS - 02/16/2017 CHEST, 2 VIEWS: FINDINGS: Compared with 10/07/2015. Heart size is normal. Inspiration is mildly shallow. The lungs appear clear except for mild subsegmental atelectasis or scarring. There is no consolidation, pleural effusion, or pneumothorax identified. IMPRESSION: 1. Mildly shallow inspiration. 2. Mild subsegmental atelectasis versus scarring. 3. No other evidence of acute disease.
[2017-02-16] MEDS ORDERED: ZOFRAN IV PRN (21:00)
[2017-02-16] MEDS ORDERED: TORADOL IV PRN (21:00)
[2017-02-16] MEDS ORDERED: LASIX PO PRN (22:44)
--- NOTE | 2017-02-17 01:31 | HISTORY AND PHYSICAL ---
PRIMARY CARE PHYSICIAN: Dr. Montez Kumar. CHIEF COMPLAINT: Status post fall. HISTORY OF PRESENTING ILLNESS: This is a 71-year-old male with a history of cirrhosis, secondary to hepatitis C, diabetes mellitus type 2, and hypertension, who presented initially to [place] emergency department after he had a fall. He states that he tripped over something, did not really lose any consciousness. He has some small abrasions to his forehead, and subsequently a Band-Aid was placed over it. As per ER physician, he was concerned that he was having more ascites, and requested that he be transferred to [facility] due to lack of subspecialty care there. At the time of my examination, the patient seemed appropriate, did not seem confused, and answered all my questions. He had denied having any headache, any fevers, chills, chest pain, shortness of breath, hemoptysis, but complained of his abdomen swelling. PAST MEDICAL HISTORY: Includes hepatitis C, liver cirrhosis, diabetes mellitus type 2, hypertension. PAST SURGICAL HISTORY: Repeated paracentesis. ALLERGIES: No known drug allergies. CURRENT MEDICATIONS: As listed on the MAR. SOCIAL HISTORY: He denies any history of smoking, alcohol or illicit drug use. FAMILY HISTORY: No history of coronary disease. REVIEW OF SYSTEMS: Twelve point review of systems 12 point review of systems listed as in HPI. Other systems negative. PHYSICAL EXAMINATION: GENERAL: Cooperative, friendly male. He is resting comfortably now. VITAL SIGNS: Temperature 97.8, pulse 66, respirations 15, blood pressure 105/76. HEENT: Atraumatic, normocephalic. Extraocular movements intact. PERRLA. NECK: No masses. CHEST: Clear to auscultation. CARDIOVASCULAR: Regular rhythm. ABDOMEN: Soft, distended. Seems ascitic. : No bladder distention. SKIN: Warm. NEURO: He is awake, alert, oriented x2. LABORATORIES AND STUDIES: WBC 5.69, hemoglobin 9.1, hematocrit 26.3, platelets 123,000. Sodium 136, potassium 3.5, chloride 104, CO2 is 21, BUN is 46, creatinine 1.7, glucose is 226. Ammonia level is 95. ASSESSMENT: A 71-year-old male with a history of liver cirrhosis, secondary to hepatitis C, diabetes mellitus type 2, and hypertension, who apparently had a fall. He was evaluated in [facility] and transferred to [facility] for further evaluation of also ascites. The patient will need to be admitted for further evaluation by Gastroenterology. ASSESSMENT: 1. Status post fall. 2. Hepatitis C. 3. Liver cirrhosis, secondary to #2. 4. Ascites. 5. Chronic kidney disease, stage 4. 6. Chronic anemia. 7. Diabetes mellitus type 2. 8. Hypertension. PLAN: 1. We will admit patient to medical floor. 2. Continue with neuro checks. 3. We will consult Gastroenterology, and schedule patient for paracentesis by ultrasound. 4. Monitor his renal function. 5. Monitor hemoglobin and hematocrit. 6. We will put patient on sliding scale insulin regimen, monitor blood glucose closely. 7. We will monitor blood pressure, resume antihypertensive agents. 8. We will put patient on DVT prophylaxis with SCDs. 9. We will continue to follow and reassess. cc: Soham Hurst MD
[2017-02-17 06:25] LABS: BASO% 0.2 % (0.0-0.8); EOS# 0.24 X1000 (0.0-0.7); EOS% 4.2 % (0.0-10.0); HEMATOCRIT 26.7 % (42.0-52.0); HEMOGLOBIN 9.2 g/dL (14.0-18.0); LYMPH# 0.81 X1000 (1.2-3.4); LYMPH% 14.2 % (20.5-51.1); MANUAL DIFF NEEDED? YES; MCH 36.4 PG (27-31); MCHC 34.5 g/dL (33-37); MCV 105.5 FL (81-99); MONO# 0.51 X1000 (0.11-0.59); MONO% 8.9 % (1.7-9.3); MPV 10.1 FL (7.4-10.4); NEUT% 72.5 % (42.2-75.2); PLT 122 X1000 (130-400); RBC 2.53 XMIL (4.7-6.1)
[2017-02-17 06:42] LABS: CALCIUM 8.1 mg/dL (8.8-10.2); POTASSIUM 3.7 mmol/L (3.5-5.1)
[2017-02-17] MEDS: LACTULOSE PO SCH ×3 (09:02→20:17)
[2017-02-17] MEDS: HUMULIN R SUBQ SCH ×3 (13:10→22:22)
[2017-02-17] MEDS ORDERED: SODIUM CHLORIDE 0.9% INJ SCH (14:30)
--- NOTE | 2017-02-17 15:44 | PROGRESS NOTE ---
DATE: 02/17/2017 SUBJECTIVE: Patient reports feeling fine. Reports mild abdominal pain related to abdominal distention, but denies any fever or chills. OBJECTIVE: Vital Signs: Temperature 98.7 degrees, heart rate 87, respiratory rate 16, blood pressure 102/69, O2 saturation 100% on room air. General Examination: This is a chronically ill- looking and frail, 71-year-old male, lying in bed in no acute distress. HEENT: Head is normocephalic, atraumatic. Anicteric sclerae and pale conjunctivae. Mucous membranes moist. Neck: Supple. No JVD noted. No carotid bruits. No lymphadenopathy. No thyromegaly. Cardiovascular: S1, S2 heard. No murmurs, gallops, or rubs. Regular rate and rhythm. Respiratory: Clear bilaterally to auscultation. No work of breathing or using accessory muscles. Abdomen: Soft, markedly distended and fluctuance consistent with ascites and bowel sound distant, but present. Extremities: No clubbing, cyanosis, or edema. Peripheral pulses present in both legs. Neurological: Patient is alert and oriented x3. Moves 4 extremities. LABORATORY DATA: White cell count 5.76, hemoglobin 9.2, hematocrit 26.7, platelets 122,000. BMP shows basically creatinine 1.6 which is probably his baseline, but nothing different. ASSESSMENT AND PLAN: 1. Status post fall. 2. Liver cirrhosis with ascites. 3. Chronic kidney disease stage 3. 4. Anemia of chronic disease. 5. Diabetes mellitus type 2. 6. Hypertension. PLAN: The patient has been admitted to the hospital basically because of fall. This patient is very well known to our service. We know that he has end-stage liver disease with ascites that requires paracentesis at least 1 or 2 every 2 weeks. At this point, we are going to do an ultrasound-guided paracentesis, but as since our admission will try to set up paracentesis every 2 weeks for him. Patient last time he was here, he refused to go to rehab facility so we are going to check with him in case he prefers to go back home or not or going to rehab because this patient is very weak. cc: Benjamín Morales MD
[2017-02-17] MEDS: PROTONIX IV SCH (15:53)
[2017-02-17] MEDS: NS 1,000 ML IV SCH (17:45)
--- NOTE | 2017-02-17 18:13 | CONSULTATION ---
DATE OF CONSULTATION: 02/17/2017 REFERRING PHYSICIAN: Benjamín Morales MD PRIMARY CARE DOCTOR: Dr. Montez Kumar. REASON FOR CONSULT: Cirrhosis and worsening ascites and recent admission status post fall. HISTORY OF PRESENT ILLNESS: Mr. Ndiaye is a 71-year-old male who has a known history of liver cirrhosis secondary to nonalcoholic steatohepatitis complicated with refractory ascites, anasarca, pedal edema, hepatic encephalopathy, thrombocytopenia, pancytopenia, anemia, malnutrition, hypoalbuminemia, coagulopathy who was admitted through the ER to [facility] on after a fall at home. He did not lose consciousness during the fall. During workup in the ER he had a negative imaging of the head, neck, chest, abdomen. The patient was noted to have worsening ascites on imaging and on physical exam. The patient was transferred to [facility] for further workup and ascitic tap. The patient denies any nausea, vomiting, vomiting blood or passing blood in the stools. He has not been able to keep any appointments with the Liver Transplant Team in [place]. The patient has been getting serial ascitic taps as an outpatient under our care. PAST MEDICAL HISTORY: Liver cirrhosis, hepatic encephalopathy, portal hypertension, type 2 diabetes, hypertension, pedal edema, refractory ascites, coagulopathy, thrombocytopenia, anemia, malnutrition, hypoalbuminemia. PAST SURGERY HISTORY: Recurrent paracentesis. He had an EGD and colonoscopy in the past. ALLERGIES: No known drug allergies. HOME MEDICATIONS: 1. Potassium chloride 10 mg p.o. daily. 2. Lasix 40 mg once daily. 3. Centrum Silver once daily. 4. Lactulose 40 mL, 5 mL t.i.d. 5. Iron C b.i.d. MEDICATIONS IN THE HOSPITAL: 1. Lasix 40 mg twice daily. 2. Sliding scale Humulin insulin. 3. Lactulose 45 mEq t.i.d. 4. Multivitamins 1 tab p.o. b.i.d. 5. Zofran 4 mg IV every 4 hours as needed. 6. Protonix 40 mg IV once daily. 7. Zyprexa 5 mg p.o. b.i.d. 8. Spironolactone 100 mg p.o. daily. 9. Albumin mg 100 mg IV once given to be given for paracentesis scheduled for tomorrow. DIET: He is currently on full liquid diet. REVIEW OF SYSTEMS: Denies any current fevers, rigors or chills, chest pain, shortness of breath. He does complain of feeling weak and tired, but this is chronic for him. He has generalized malaise, attributed to liver disease. He denies any history of vomiting blood or passing blood in the stool or black stools. He does complain of worsening abdominal distention and ascites. He Denies any neurologic complaints, although he did sustain a fall at home which he thought he tripped over something. Denies any new genitourinary complaints. 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 His last ultrasound-guided paracentesis was done on 02/01/2017 and 15 L was aspirated. PHYSICAL EXAMINATION: Vital Signs: Temperature of 97.5 degrees, pulse of 75, respiratory rate 17, blood pressure 104/77, saturating 100% on room air. His body weight 198 pounds, 1.6 ounces, BMI 26.1 kg/m2. General: Moderately built, moderately nourished, lying in bed, in no acute distress. HEENT: Pale conjunctivae, mild icterus. Pupils equal, react to light. Neck: Supple. Chest: Decreased breath sounds. Cardiac: Regular rhythm. No murmur. Abdomen: Distended, positive ascites. No guarding, no rebound. Bowel sounds are present. Extremities: No cyanosis, clubbing, and bilateral lower extremity edema noted. Neurologic: Alert and awake. Answers questions. LABORATORY: His hemoglobin and hematocrit is 9.2, 26.7, white count 5.7, platelet count of 122,000. MCV of 105.5, INR 1.33, PT of 15.8, PTT of 36, his sodium 138, potassium 3.7, chloride 107, bicarb 21, anion gap 10, BUN of 43, creatinine 1.6, glucose of 147, calcium 8.1, ammonia is 95. His lactate is 2.7, B12 of more than 2000, TSH 1.34. Total bilirubin is 1.3, AST 30, ALT 24, alkaline phosphatase 141, total protein is 6.5, albumin of 2.4. IMAGING: Abdomen and pelvis done yesterday showed large amount of ascites, tiny gallstone versus dense sludge in the gallbladder. No evidence of any hydronephrosis. No bowel obstruction. Uncomplicated colonic diverticulosis. No abscess. No free air. IMPRESSION AND PLAN: 1. Fatty liver, liver cirrhosis, complicated with refractory ascites. 2. Status post fall- negative imaging for any major internal injury. 3. Diverticulosis of colon. 4. Anemia. 5. Thrombocytopenia. 6. Coagulopathy. 7. Type 2 diabetes. 8. Chronic kidney disease. 9. Hypoalbuminemia. RECOMMENDATIONS: 1. We will schedule the patient for ultrasound-guided paracentesis tomorrow with the radiologist. In this regard we will give him 100 g of albumin before the paracentesis or right after paracentesis. 2. We will avoid hepatotoxic drugs. We will keep close eye on input and output and keep him on a fluid restriction of less than 1.5 L/24 hours. We will also given low sodium diet less than 2 g q.24 hours. 3. He will be made nothing per oral past midnight for paracentesis tomorrow and then after paracentesis we will resume him back on his diet and home medications. We will continue him on Xifaxan, lactulose for hepatic encephalopathy. 4. We will continue him on multivitamin twice daily for anemia. 5. We will continue him on Lasix and Aldactone for pedal edema and ascites. We will have to keep a close eye on his BUN and creatinine. The patient is again encouraged to keep a close followup with [facility], but so far, patient has not been able to keep any appointments in the last 1 year. I encouraged him to improve his compliance. 6. High lactate noted. Could be a sign of mild dehydration. In this regard we will give him some fluids today. We will keep him on gastrointestinal prophylaxis with proton pump inhibitors. Further recommendations to follow pending hospital course. Discussed with the patient and Dr. Sharp. cc: MD Benjamín Cruz MD Wayne E. [facility], MD MTDD
[2017-02-17] MEDS: XIFAXAN PO SCH (20:17)
[2017-02-17] MEDS: CENTRUM SILVER PO SCH (20:17)
[2017-02-18 05:51] LABS: BASO% 1.1 % (0.0-0.8); EOS# 0.25 X1000 (0.0-0.7); EOS% 4.6 % (0.0-10.0); HEMATOCRIT 28.7 % (42.0-52.0); LYMPH# 0.87 X1000 (1.2-3.4); LYMPH% 16.1 % (20.5-51.1); MANUAL DIFF NEEDED? NO; MCH 37.2 PG (27-31); MCHC 34.8 g/dL (33-37); MCV 106.7 FL (81-99); MONO# 0.46 X1000 (0.11-0.59); MONO% 8.5 % (1.7-9.3); MPV 10.1 FL (7.4-10.4); NEUT% 69.7 % (42.2-75.2); PLT 165 X1000 (130-400); RBC 2.69 XMIL (4.7-6.1)
[2017-02-18 05:53] LABS: INR 1.22
[2017-02-18] MEDS ORDERED: ALBUMIN 25% IV ONE (08:00)
[2017-02-18] MEDS: HUMULIN R SUBQ SCH ×4 (08:13→22:18)
[2017-02-18] MEDS: ALDACTONE PO SCH (10:22)
[2017-02-18] MEDS: CENTRUM SILVER PO SCH (10:22)
[2017-02-18] MEDS: LACTULOSE PO SCH ×3 (10:23→22:17)
[2017-02-18] MEDS: LASIX PO SCH (10:23)
[2017-02-18] MEDS: XIFAXAN PO SCH ×2 (10:23→20:38)
--- NOTE | 2017-02-18 13:24 | PROGRESS NOTE ---
DATE: 02/18/2017 SUBJECTIVE: The patient currently resting in bed. He is NPO. He is ready for paracentesis to be done later today. He denies any nausea, vomiting, fevers, rigors, chills today. OBJECTIVE: Vital signs: Temperature 97.7 degrees, pulse rate of 79, respiratory rate 16, blood pressure 140/100, saturating 100% on room air. General Appearance: He is moderately built, moderately nourished, lying in bed, in no acute distress. HEENT: Pale conjunctive. Icterus sclerae. Neck: Supple. Abdomen: Distended. Positive ascites. No guarding. Extremities: No cyanosis, clubbing. Bilateral lower extremity edema noted. Neurological: He is alert, awake, and answers simple questions. LABS: His hemoglobin and hematocrit are 10 and 28.7, white count of 5.3, platelet count of 165,000. His sodium of 138. These are from yesterday. His blood glucose of 172. INR 1.22. Urinalysis showing 1+ white cells and trace protein. Toxicology screen was negative. IMPRESSION AND PLAN: 1. Liver cirrhosis secondary to fatty liver, complicated with portal hypertension, refractory ascites, encephalopathy, portal hypertension, thrombocytopenia, anemia, and hypoalbuminemia. In this regard, the patient is NPO and scheduled for paracentesis today. We will give him albumin 100 grams today after the paracentesis. He be watched closely after the paracentesis and if he is feeling better after the procedure, he may be able to go home later today or tomorrow morning, depending on his overall status. 2. The patient will continue on his home medicines Lasix 40 mg daily, Aldactone 100 mg daily, Centrum Silver once daily, lactulose 45 mL t.i.d., Iron C b.i.d., potassium chloride 10 mg every day, and Prilosec once daily. 3. The patient will call our office for a followup appointment. He will continue to follow up at [facility] with liver transplant team and has so far been noncompliant with that. I encouraged him to try to keep his future appointments. 4. Further recommendations follow pending hospitalization. cc: MD Montez Cruz MD Alexis R. Penot, MD
[2017-02-18 14:23] LABS: INR 1.22
--- NOTE | 2017-02-18 16:43 | PROGRESS NOTE ---
DATE: 02/18/2017 SUBJECTIVE: Patient reports feeling fine. Complaining of mild abdominal distention but no fever or chills. OBJECTIVE: Vital Signs: Temperature 97.7 degrees, heart rate 79, respiratory rate 16, blood pressure 149/100, O2 saturation is 100% on room air. General Examination: This is a 71-year-old male, lying in bed, in no acute distress. HEENT: Head is normocephalic, atraumatic. Anicteric sclerae. Pale conjunctivae. Mucous membranes moist. Neck: Supple. No JVD noted. No carotid bruits. No lymphadenopathy. No thyromegaly. Cardiovascular: S1, S2 heard. No murmurs, gallops, or rubs. Regular rate and rhythm. Respiratory: Clear bilaterally to auscultation. No work of breathing or using accessory muscles. Abdomen: Soft. Markedly distended with ascites. Bowel sounds distant but present. Extremities: No clubbing, cyanosis, or edema. Peripheral pulses present in both legs. Neurological: Patient is alert and oriented x3. Moves 4 extremities. LABORATORY DATA: Reviewed. ASSESSMENT: 1. Status post fall. 2. Liver cirrhosis secondary to fatty liver complicated with portal hypertension. 3. Refractory ascites. 4. Portal hypertension. 5. Thrombocytopenia. 6. Severe hypovolemia. 7. Chronic kidney disease stage 3. 8. Diabetes mellitus type 2. 9. Hypertension. PLAN: The patient has been admitted to the hospital because of a fall and he was noted to have severe ascites. The patient is a frequent flyer to our service. This patient, as we mentioned before, has end-stage liver disease secondary to chronic hepatitis C infection. In this patient we have explored the possibility to send him to a rehab facility and although it was really difficult to have a bed for placement, the last time patient refused to go and preferred to go to home with home health. I think at this time, the plan is to do a paracenteses, make sure that this patient will have paracentesis every 2 weeks done in the hospital, and then he can be discharged. At this time, we are the waiting for the radiology department to performed that procedure. For his other medical conditions, we are going to continue with the home medications including diabetes and hypertension. Blood pressure by the way is within normal limits. We will continue with the same management. cc: Benjamín Morales MD
--- NOTE | 2017-02-18 17:04 | Diag Imaging Result Document ---
PROCEDURE NAME: US PARACENTESIS - 02/18/2017 ULTRASOUND-GUIDED PARACENTESIS: COMPARISON: 02/01/2017. FINDINGS: The risks and benefits of the procedure were discussed with the patient. All questions were answered. Written and verbal informed consent was obtained. Ultrasound scanning demonstrated large amount of ascites. Overlying skin was prepped and draped in sterile fashion. Anesthesia was achieved with injection of 9 mL of 1% lidocaine. The paracentesis catheter was advanced without difficulty until the return of ascites fluid. 12.5 L was removed. The catheter was withdrawn intact. The patient reported no symptoms from the procedure. IMPRESSION: Successful and uncomplicated ultrasound-guided paracentesis.
[2017-02-18] MEDS: PROTONIX IV SCH (18:55)
[2017-02-18] MEDS: NS 1,000 ML IV SCH (18:56)
[2017-02-19] MEDS: HUMULIN R SUBQ SCH ×4 (07:58→22:08)
[2017-02-19] MEDS: ICAR-C PO SCH (10:20)
[2017-02-19] MEDS: LACTULOSE PO SCH ×3 (10:20→22:08)
[2017-02-19] MEDS: CENTRUM SILVER PO SCH (10:20)
[2017-02-19] MEDS: LASIX PO SCH (10:21)
[2017-02-19] MEDS: KLOR-CON PO SCH (10:21)
[2017-02-19] MEDS: XIFAXAN PO SCH ×2 (10:21→22:09)
[2017-02-19] MEDS: PATIENT'S OWN MED PO SCH (10:21)
[2017-02-19] MEDS: ALDACTONE PO SCH (10:21)
--- NOTE | 2017-02-19 16:44 | PROGRESS NOTE ---
DATE: 02/19/2017 SUBJECTIVE: The patient states that he is feeling better. He had a paracentesis done yesterday and 12.5 L of ascitic fluid was removed. The plan is to send this patient to a rehab center because of his weakness and no family members can take care of him. OBJECTIVE: Vital Signs: Temperature 98.5 degrees, pulse 62, respiratory rate 18, blood pressure 111/76, oxygen saturation 100% on room air. HEENT: Head normocephalic. No trauma. PERRLA. Neck: Supple. No JVD. No masses. Central trachea. Chest: Clear to auscultation. Mild rales at the bases. Abdomen: Distended. Positive wave sign. Positive bowel sounds. No pain. Extremities: No edema. No clubbing. No cyanosis. Neurological: The patient is alert and oriented x3. No focal neurological deficits. LABORATORY: No lab work today. ASSESSMENT: 1. Status post fall. 2. Liver cirrhosis secondary to fatty liver complicated with portal hypertension. 3. Refractory ascites. 4. Portal hypertension. 5. Thrombocytopenia. 6. Chronic kidney disease stage 3. 7. Type 2 diabetes. 8. Hypertension. PLAN: This patient was admitted to the hospital because of a fall and this patient was noted to have severe ascites. He is a frequent flyer to our hospital. We had a paracentesis done yesterday and 12.5 L were removed, showing ascitic fluid. This patient is ready to be discharged but nobody can take care of him at home and he is weak so we asked the public health social worker to look for placement for this patient. He should go to a rehab center. cc: Maxwell Bustillos MD
[2017-02-19] MEDS: NS 1,000 ML IV SCH (17:31)
[2017-02-20] MEDS: PRILOSEC PO SCH ×2 (05:35→06:08)
[2017-02-20] MEDS: HUMULIN R SUBQ SCH ×4 (06:07→21:23)
[2017-02-20 06:48] LABS: BASO% 0.6 % (0.0-0.8); EOS# 0.18 X1000 (0.0-0.7); EOS% 3.7 % (0.0-10.0); HEMATOCRIT 30.2 % (42.0-52.0); HEMOGLOBIN 10.4 g/dL (14.0-18.0); LYMPH# 0.74 X1000 (1.2-3.4); MANUAL DIFF NEEDED? YES; MCH 37.1 PG (27-31); MCHC 34.4 g/dL (33-37); MCV 107.9 FL (81-99); MONO# 0.49 X1000 (0.11-0.59); MPV 9.7 FL (7.4-10.4); NEUT% 70.7 % (42.2-75.2); PLT 130 X1000 (130-400)
[2017-02-20 07:16] LABS: CALCIUM 8.4 mg/dL (8.8-10.2); POTASSIUM 4.4 mmol/L (3.5-5.1)
[2017-02-20 08:08] LABS: EOS 4 % (1-10); HYPOCHROM 1+; LYMPHS 24 % (21-51); MONO 8 % (1-9)
[2017-02-20] MEDS: KLOR-CON PO SCH (09:33)
[2017-02-20] MEDS: LASIX PO SCH (09:33)
[2017-02-20] MEDS: ALDACTONE PO SCH (09:33)
[2017-02-20] MEDS: LACTULOSE PO SCH ×3 (09:33→21:19)
[2017-02-20] MEDS: CENTRUM SILVER PO SCH (09:33)
[2017-02-20] MEDS: ICAR-C PO SCH (09:33)
[2017-02-20] MEDS: XIFAXAN PO SCH ×2 (09:33→21:18)
[2017-02-20] MEDS: PATIENT'S OWN MED PO SCH (09:37)
--- NOTE | 2017-02-20 12:39 | PROGRESS NOTE ---
DATE: 02/20/2017 SUBJECTIVE: This patient states that he is feeling better. He had a paracenteses done 2 days ago, and they removed 12.5 L of ascitic fluid followed by albumin treatment. The plan is to send this patient to a rehab center because of his weakness and no family members that can take care of him at home. OBJECTIVE: Vital Signs: Temperature 98.2 degrees, pulse 72, respiratory rate 12, blood pressure 119/73, O2 saturation 100% on room air. HEENT: Normocephalic. No trauma. PERRLA. Neck: Supple. No JVD. No masses. Central trachea. Chest clear to auscultation. Mild rales at the bases. Abdomen distended. Positive wave sound. Positive bowel sounds as well. No pain. Extremities: No edema. No clubbing. No cyanosis. Neurologic: The patient is alert and oriented x3. No focal neurological deficits. LABORATORY: WBC 4.9, hemoglobin 10.4, hematocrit 30.2, platelets 130,000. Sodium 142, potassium 4.4, chloride 110, bicarbonate 21. BUN 34, creatinine 1.3, glucose 107. Calcium 8.4. ASSESSMENT AND PLAN: 1. Status post fall. The plan is to send this patient to a rehab center. This patient is feeling much better now. 2. Liver cirrhosis secondary to fatty liver complicated with portal hypertension, aware. We will continue following the recommendation of the Gastroenterology Department. This patient is getting diuretics and also lactulose and rifaximin. He will need a followup with gastroenterology. 3. Refractory ascites. This patient had a paracentesis done yesterday. Probably, he will need a new one tomorrow if he states here. I do think that this patient will need a paracentesis done every week or every 2 weeks from now on. 4. Portal hypertension, aware. 5. Thrombocytopenia, likely secondary to liver dysfunction. 6. Chronic kidney disease, stage 3, stable. 7. Type 2 diabetes, stable. Continue to monitor. 8. Hypertension, stable. Continue with the same management. cc: Maxwell Bustillos MD
[2017-02-20] MEDS: NS 1,000 ML IV SCH (18:04)
[2017-02-21] MEDS: NS 1,000 ML IV SCH (04:10)
[2017-02-21 06:33] LABS: BASO% 1.1 % (0.0-0.8); EOS% 3.5 % (0.0-10.0); HEMATOCRIT 31.5 % (42.0-52.0); HEMOGLOBIN 10.6 g/dL (14.0-18.0); LYMPH# 1.08 X1000 (1.2-3.4); MANUAL DIFF NEEDED? NO; MCH 36.6 PG (27-31); MCHC 33.7 g/dL (33-37); MCV 108.6 FL (81-99); MONO# 0.43 X1000 (0.11-0.59); MONO% 7.6 % (1.7-9.3); NEUT% 68.8 % (42.2-75.2); PLT 140 X1000 (130-400)
[2017-02-21] MEDS: PRILOSEC PO SCH (06:47)
[2017-02-21] MEDS: HUMULIN R SUBQ SCH ×4 (06:48→22:11)
[2017-02-21 06:53] LABS: CALCIUM 8.3 mg/dL (8.8-10.2); POTASSIUM 3.9 mmol/L (3.5-5.1)
[2017-02-21] MEDS: CENTRUM SILVER PO SCH (09:48)
[2017-02-21] MEDS: KLOR-CON PO SCH (09:48)
[2017-02-21] MEDS: ICAR-C PO SCH (09:48)
[2017-02-21] MEDS: LACTULOSE PO SCH ×3 (09:48→22:23)
[2017-02-21] MEDS: ALDACTONE PO SCH (09:48)
[2017-02-21] MEDS: XIFAXAN PO SCH ×2 (09:49→22:23)
[2017-02-21] MEDS: LASIX PO SCH (09:49)
[2017-02-21] MEDS: PATIENT'S OWN MED PO SCH (11:12)
[2017-02-21 11:13] LABS: INR 1.23; PROTIME 13.1 Seconds (9.2-11.7); PTT 31.9 Seconds (22.0-36.0)
[2017-02-21] MEDS ORDERED: ALBUMIN 25% IV ONE (11:30)
--- NOTE | 2017-02-21 15:30 | Diag Imaging Result Document ---
PROCEDURE NAME: US PARACENTESIS - 02/21/2017 ULTRASOUND-GUIDED PARACENTESIS: COMPARISON: 02/18/2017. FINDINGS: Risks, benefits, and alternatives were discussed with the patient, and informed consent was obtained. The patient was prepped and draped in sterile fashion and local anesthesia was achieved with 1% lidocaine solution. Using ultrasound guidance, a large-bore catheter was inserted into the peritoneal cavity. 9.8 L of straw-colored serous fluid was then aspirated. There were no known complications. IMPRESSION: Technically successful ultrasound-guided paracentesis.
[2017-02-22] MEDS: PRILOSEC PO SCH ×2 (05:53→06:01)
[2017-02-22] MEDS: HUMULIN R SUBQ SCH (06:01)
[2017-02-22 06:15] LABS: BASO% 0.4 % (0.0-0.8); EOS# 0.17 X1000 (0.0-0.7); EOS% 3.7 % (0.0-10.0); HEMATOCRIT 26.1 % (42.0-52.0); HEMOGLOBIN 9.1 g/dL (14.0-18.0); LYMPH# 0.94 X1000 (1.2-3.4); LYMPH% 20.2 % (20.5-51.1); MANUAL DIFF NEEDED? NO; MCH 36.7 PG (27-31); MCHC 34.9 g/dL (33-37); MCV 105.2 FL (81-99); MONO# 0.42 X1000 (0.11-0.59); MPV 9.2 FL (7.4-10.4); NEUT% 66.7 % (42.2-75.2); PLT 91 X1000 (130-400); RBC 2.48 XMIL (4.7-6.1)
[2017-02-22 06:44] LABS: CALCIUM 8.5 mg/dL (8.8-10.2); POTASSIUM 4.4 mmol/L (3.5-5.1)
--- NOTE | 2017-02-22 07:24 | DISCHARGE SUMMARY ---
ADMISSION DATE: 02/16/2017 DISCHARGE DATE: 02/21/2017 PERTINENT PROCEDURES: 1. Abdomen and pelvis CT showed a large amount of ascites, tiny gallstones versus dense sludge in gallbladder. No evidence of renal stone or hydro-stenosis. No bowel obstruction. Uncomplicated colonic diverticulosis. No abscess or free air. 2. Head and cervical spine CT showed fusion of C2 and C3 vertebra. Several multilevel's of degenerative disease. No evidence of fracture or subluxation. 3. Chest CT showed scattered linear atelectasis or scarring. No evidence of acute disease. No evidence of injury to the thorax. 4. Ultrasound-guided paracentesis where 12.5 L were removed. The patient to undergo another ultrasound-guided paracentesis on 02/21/2017 prior to discharge. CONSULTATIONS: Dr. Henriquez with Gastroenterology. DISCHARGE DIAGNOSES: 1. Status post fall. The plan was for rehab center but patient has refused. He will be going home with home health. 2. Liver cirrhosis secondary to fatty liver complicated with portal hypertension. Follow-up by Dr. Henriquez. Patient to continue on diuretics, lactulose and Xifaxan. Continue to follow up with GI. 3. Refractory ascites. Patient had 12.5 L pulled off the paracentesis. He will undergo paracentesis before discharge today and will need to be done every week or every 2 weeks as per GI. 4. Portal hypertension. Aware. 5. Thrombocytopenia secondary to liver dysfunction. 6. Chronic kidney disease stage 3. Stable. 7. Diabetes mellitus, stable. 8. Hypertension, stable. HOSPITAL COURSE: Briefly, Mr. Ndiaye is a 71-year-old, male, well known to our service with history of cirrhosis secondary to Hep C, diabetes mellitus type 2, hypertension initially presented to [place] ED after he had a fall. He tripped and fell over something. Did not really lose any consciousness. He has some small abrasions to his forehead. Head and cervical spine CT showed no visible acute process. No evidence of intracranial injury and no evidence of fracture or subluxation. The patient was transferred to [facility] for a GI consult secondary to needing a paracentesis. They were able go up to 12.5 L. We did feel that the patient would need to go to rehab after discharge; however, the patient is refusing to go. He preferred to go home with home health. We did get [employer] involved; again, he still refused rehab. The patient will undergo a paracentesis today on 02/21/2017 and he will be discharged back home with home health. He will need to continue to follow with GI as well as continue with paracentesis every 2 weeks if not every week. VITAL SIGNS: At the time of his discharge, temperature is 97.6 degrees, heart rate 82, respirations 14, blood pressure 102/69, O2 is 100% on room air. DISCHARGE DIET: Diabetic. DISCHARGE MEDICATIONS: 1. Lasix 40 mg p.o. daily. 2. Icar C 1 each p.o. daily. 3. Lactulose 45 mg p.o. t.i.d. 4. Centrum Silver 1 each p.o. daily. 5. Prilosec 40 mg p.o. daily. 6. Potassium chloride 10 mEq p.o. daily. 7. Xifaxan 550 mg p.o. b.i.d. 8. Aldactone 100 mg p.o. daily. 9. Viread 300 mg p.o. daily. FOLLOWUP: Patient is being discharged home with home health. He will need to continue to follow up with GI as well as continue to undergo his paracentesis weekly and/or biweekly as setup for GI. Dictated by ADELITA Lala for Maxwell Bustillos MD cc: MD Montez Gallegos MD MTDD
[2017-02-22 07:30] VITALS: BP 108/72
[2017-02-22] MEDS: ALDACTONE PO SCH (08:54)
[2017-02-22] MEDS: LACTULOSE PO SCH ×2 (08:54→08:58)
[2017-02-22] MEDS: KLOR-CON PO SCH (08:55)
[2017-02-22] MEDS: LASIX PO SCH (08:55)
[2017-02-22] MEDS: CENTRUM SILVER PO SCH (08:55)
[2017-02-22] MEDS: XIFAXAN PO SCH (08:55)
[2017-02-22] MEDS: ICAR-C PO SCH (08:55)
--- NOTE | 2017-02-25 04:49 | DISCHARGE SUMMARY ---
ADMISSION DATE: 02/16/2017 DISCHARGE DATE: 02/22/2017 ADDENDUM REPORT TO DISCHARGE SUMMARY SUBJECTIVE: This patient states that he is feeling better. Yesterday he had a paracentesis done followed by albumin treatment. He was supposed to be discharged yesterday but we did not find any family members. We have been trying to send this patient to a rehabilitation center but they refused this patient. OBJECTIVE: Vital Signs: Temperature 98.3 degrees, pulse 71, respiratory rate 18, blood pressure 108/72, O2 saturation 100%. HEENT: Head normocephalic. No trauma. PERRLA. Neck: Supple. No JVD. No masses. Central trachea. General: This patient looks cachectic. Abdomen: Soft, mildly distended, positive wave sign, no signs of peritoneal irritation. Extremities: No edema. No clubbing. No cyanosis. Neurological Examination: The patient is alert and oriented x3. No focal neurological deficits. LABORATORY: WBC 4.6, hemoglobin 9.1, hematocrit 26.1, platelets 91, sodium 137, potassium 4.4, chloride 107, bicarbonate 20, BUN 29, creatinine 1.3, calcium 8.5, glucose 104. DISCHARGE DIAGNOSES: 1. Status post fall. 2. Liver cirrhosis secondary to fatty liver complicated with portal hypertension. 3. Refractory ascites. 4. Portal hypertension. 5. Thrombocytopenia. 6. Chronic kidney disease stage 3. 7. Diabetes mellitus. 8. Hypertension. Please refer to the Discharge Summary done yesterday for the rest of the information. cc: Maxwell Bustillos MD
== END 2017-02-22 09:45 | disposition home health service (06) ==
LOC: P.ED 17:08 → 4N 21:50 → SUATTDRO 21:50 → UNDODISIN 02-17 14:46
PROVIDERS: ATTEND Internal Medicine

== ENCOUNTER 2017-03-08 08:36 | Inpatient (IN) ==
[2017-03-08 09:14] LABS: MANUAL DIFF NEEDED? NO
[2017-03-08 09:26] LABS: BASO% 0.4 % (0.0-0.8); EOS# 0.01 X1000 (0.0-0.7); EOS% 0.2 % (0.0-10.0); HEMATOCRIT 25.9 % (42.0-52.0); HEMOGLOBIN 9.1 g/dL (14.0-18.0); LYMPH# 0.59 X1000 (1.2-3.4); LYMPH% 10.5 % (20.5-51.1); MCH 36.4 PG (27-31); MCHC 35.1 g/dL (33-37); MCV 103.6 FL (81-99); MONO# 0.47 X1000 (0.11-0.59); MONO% 8.4 % (1.7-9.3); NEUT% 80.5 % (42.2-75.2); PLT 128 X1000 (130-400)
[2017-03-08 09:31] LABS: URINE CULTURE NEEDED? NO; URINE MICRO REVIEW NEEDED? NO; URINE SOURCE CATH
[2017-03-08 09:38] LABS: BILIRUBIN URINE NEGATIVE (NEGATIVE); BLOOD URINE NEGATIVE (NEGATIVE); COLOR YELLOW; GLUCOSE URINE NEGATIVE (NEGATIVE); LEUKOCYTES URINE NEGATIVE (NEGATIVE); NITRITE URINE NEGATIVE (NEGATIVE); PROTEIN URINE TRACE mg/dL (NEGATIVE); TURBIDITY URINE CLEAR (CLEAR); UROBILINOGEN URINE NORMAL (NORMAL)
[2017-03-08 09:40] LABS: UR EPITHELIAL CELLS <10 /HPF (<10); URINE BACTERIA NEGATIVE /HPF; URINE RBC <10 /HPF (<10); URINE WBC <10 /HPF (<10)
[2017-03-08 09:47] LABS: ALBUMIN 3.1 g/dL (3.5-5.0); CALCIUM 8.6 mg/dL (8.8-10.2); POTASSIUM 5.3 mmol/L (3.5-5.1); TOTAL BILIRUBIN 0.93 mg/dL (0.20-1.00); TOTAL PROTEIN 5.9 g/dL (6.3-8.3)
[2017-03-08] MEDS ORDERED: AMMONIA AROMATIC ONE (10:11)
[2017-03-08] MEDS ORDERED: AMMONIA AROMATIC INH ONE (10:15)
[2017-03-08] MEDS: NS 1,000 ML IV ONE ×2 (11:02→17:15)
--- NOTE | 2017-03-08 11:12 | PROVIDER DOCUMENTATION ---
This chart was entered by Emely Phillips Scribe, acting as scribe for Luis E Avendaño MD. HPI-Abdominal Pain/GI Problem - General Chief Complaint: Unresponsive Stated Complaint: ams Time Seen by Provider: 03/08/17 09:02 Source: patient Allergies/Adverse Reactions: Patient Allergies Allergy/AdvReac Type Severity Reaction Status Date / Time No Known Allergies Allergy Verified 01/16/17 17:43 Home Medications: Home Medication List Medication Instructions Recorded Confirmed Last Taken Type Furosemide 40 mg PO DAILY PRN 12/06/16 03/08/17 03/07/17 History Multivitamins/Minerals [Centrum 1 each PO DAILY 12/06/16 03/08/17 03/07/17 History Silver] Potassium Chloride 10 meq PO DAILY 12/06/16 03/08/17 03/07/17 History Tenofovir Disoproxil Fumarate 300 mg PO DAILY 12/06/16 03/08/17 03/07/17 History [Viread] Iron Carbonyl/Ascorbic Acid 1 each PO DAILY #30 tablet 12/21/16 03/08/17 Rx [Icar-C] Lactulose 45 ml PO TID@0900,1500,2100 #1 udc 12/21/16 03/08/17 03/07/17 Rx Omeprazole [Prilosec] 40 mg PO DAILY@0700 #90 capsule 02/19/17 03/08/17 Rx Spironolactone [Aldactone] 100 mg PO DAILY #90 tablet 02/19/17 03/08/17 Rx Rifaximin [Xifaxan] 550 mg PO BID #60 tablet 02/20/17 03/08/17 03/07/17 Rx - History of Present Illness-ABD Nature of Presenting Problems: Pt is a 71 yom who came to the ED via EMS from the longterm with a cc of being unresponsive. Pt is a the longterm for rehab to regain strength after falling a couple of weeks ago. This morning the longterm went to wake the PT up and he would not wake up. The pt has a hx of cirrhosis, hep C, and liver cancer. Quality of Pain: reports: none Severity in ED: reports: moderate Onset/Duration: reports: just prior to arrival Timing: reports: still present Activities at Onset: reports: sleep Modifying Factors: improves with: nothing Last BM: unsure Dark Stools Present?: reports: none noticed Review of Systems - Adult - REVIEW OF SYSTEMS - ADULT ROS:: ROS per family Constitutional: denies: chills, fever, night sweats Eyes: denies: discharge, decreased vision Ears, Nose, Mouth & Throat: denies: ear discharge, nose pain Cardiovascular: denies: chest pain, heart murmur Respiratory: denies: chronic cough, pleurisy Gastrointestinal: reports: abdominal pain, poor appetite. denies: hematemesis, constipation, diarrhea, vomiting Genitourinary: denies: dysuria, flank pain Musculoskeletal: denies: bone pain, joint pain Integumentary: denies: hives, mole changes Neurological: denies: dizziness/vertigo, loss of balance Psychiatric: reports: no symptoms reported Endocrine: denies: goiter, cold intolerance, heat intolerance Hematologic/Lymphatic: denies: blood clots, low blood count, lymphedema Allergic/Immunologic: denies: allergic reactions, frequent infections Past History - Adult - PAST MEDICAL HISTORY-ADULT Review of Records: reports: Nursing Assessment Review Major Childhood Illnesses: reports: denies history Cardiovascular: reports: HTN, hyperlipidemia Respiratory: reports: denies history Gastrointestinal: reports: hepatitis (b), liver disease (cirrhosis) Obstetrical/Gynecological: reports: denies history Genitourinary: reports: denies history Musculoskeletal: reports: denies history Neurological: reports: denies history Endocrine/Immune: reports: Diabetes Other Conditions: reports: denies history - PRIOR SURGERIES/PROCEDURES Surgical/Procedure History: reports: reviewed, not pertinent - IMMUNIZATION STATUS Childhood Immunizations: See Nurse Assessment Flu Vaccine: See Nurse Assessment - FAMILY HISTORY Family History: reviewed, not pertinent Physical Exam-General - CONSTITUTIONAL General Appearance: other (unresponsive) - HEAD, EARS, NOSE, MOUTH & THROAT HENMT: normocephalic/atraumatic, moist mucous membranes - RESPIRATORY Respiratory: chest non-tender, lungs clear, normal breath sounds - CARDIOVASCULAR Cardiovascular: normal peripheral pulses, regular rate, rhythm, no edema - GASTROINTESTINAL (ABDOMEN) Abdominal Exam: distended (ascites fluid) - SKIN Integumentary: normal color, normal turgor - PSYCHIATRIC Psych/Mental Status: other (unresponsive) Progress - PLAN OF CARE/RESULTS Progress/Plan/Lab Results: Vital Signs - 8 hr 05/05/17 08:46 Temperature 99.0 F Pulse Rate 89 Respiratory Rate 16 Blood Pressure 110/70 O2 Sat by Pulse Oximetry 99 Orders Category Date Time Status CBC WITH ELECTRONIC DIFF [HEME] Stat Lab 03/08/17 09:07 Uncollected CMP [COMPREHENSIVE METABOLIC PANEL] [CHEM] Stat Lab 03/08/17 09:07 Uncollected Result Diagrams: 03/08/17 08:50 03/08/17 08:50 - REASSESSMENT Reassessment #1 Time Reassessed: 11:01 (Pt family wanted to send the pt to [facility]. ) Status: unchanged Reassessment #2 Time Reassessed: 11:09 Status: unchanged (dr Burnette notified and GI still has not responded. She accepts for admission) - EKG 1 Time of EKG reading by physician:: 08:40 EKG Read and Signed by:: Luis E Avendaño EKG Interpretation (*Must complete 3 of following elements*): Abnormal Rate: 78 (nonspecific T wave abnormality; Prolonges QT) Rhythm: NSR - CONSULTS/PCP/HOSPITALIST Notification #1 *Consult/PCP/Hospitalist*: Dr. Reyes Time Discussed: 11:00 ([facility] is on diversion ) #2 Consult: Dr. Burnette Time Discussed: 11:04 Consult Disposition: Admit Departure - Departure Time of Disposition Decision: 11:10 DIAGNOSIS: Liver failure with hepatic coma Qualifiers: Liver failure chronicity: chronic Qualified Code(s): K72.11 - Chronic hepatic failure with coma Disposition: ADMITTED INPATIENT 09 Certified Medical Emergency: Emergent Condition: Poor Referrals and Follow-Ups: None,PCP [Primary Care Provider] - - Critical Care Note This patient required my direct & personal management of CC.: No This chart was documented by the indicated scribe, (Emely Phillips Scribe) and accurately reflects the services I performed and decisions made by me, Luis E Avendaño MD, as attested by the provider's signature.
[2017-03-08 11:32] LABS: ALLEN TEST YES; BE -0.9 mmoll (-3.0-3.0); BLOOD TYPE ARTERIAL; DRAW SITE R RADIAL; METHB 1.7 % (0.0-1.5); PCO2(98.6) 26 mmHg (35-45); PO2(98.6) 110 mmHg (60-100); SAMPLE BLOOD; SAO2 99.5 % (95.0-100.0); THB 9.4 g/dL (11.5-17.4); pH(98.6) 7.52 (7.35-7.45)
[2017-03-08 11:33] LABS: MODALITY ROOM AIR
[2017-03-08 11:49] LABS: INR 1.26; PROTIME 13.4 Seconds (9.2-11.7)
[2017-03-08] MEDS ORDERED: LACTULOSE MISC ONE (11:52)
--- NOTE | 2017-03-08 11:59 | Diag Imaging Result Document ---
PROCEDURE NAME: CHEST-PORTABLE - 03/08/2017 PORTABLE SUPINE CHEST: COMPARISON: 02/16/2017. FINDINGS: The lungs are well expanded. The heart is not enlarged. The vessels are not distended. No consolidation. No pleural effusions identified. There is a small area of scarring in the mid right lung. Longstanding arthritic changes to each shoulder. IMPRESSION: Stable chest.
[2017-03-08 12:21] LABS: UR AMPHETAMINES QUAL NONE DETECTED (NONE DETECT); UR BARBITUATES QUAL NONE DETECTED (NONE DETECT); UR BENZODIAZEPIN QUAL NONE DETECTED (NONE DETECT); UR CANNABINOIDS QUAL NONE DETECTED (NONE DETECT); UR COCAINE QUAL NONE DETECTED (NONE DETECT); UR METHADONE QUAL NONE DETECTED (NONE DETECT); UR OPIATES QUAL NONE DETECTED (NONE DETECT); UR OXYCODONE QUAL NONE DETECTED (NONE DETECT); UR PCP QUAL NONE DETECTED (NONE DETECT)
[2017-03-08 12:22] LABS: ACETAMINOPHEN < 1.2 ug/mL (10-30)
[2017-03-08] MEDS ORDERED: ALBUMIN 25% IV ONE (12:36)
[2017-03-08] MEDS ORDERED: ROCEPHIN 2 GM/NS 2 GM/50 ML IVPB IV SCH (12:45)
[2017-03-08] MEDS ORDERED: LACTULOSE PO SCH (13:00)
--- NOTE | 2017-03-08 13:18 | Diag Imaging Result Document ---
PROCEDURE NAME: HEAD W/O CONTRAST - 03/08/2017 CT HEAD WITHOUT CONTRAST: COMPARISON: 02/16/2017. FINDINGS: There is no discrete intracranial mass, mass effect, or intracranial hemorrhage. There is no evidence of hydrocephalus. There is no evidence of acute infarct given the limited sensitivity of CT versus MRI. The surrounding soft tissues and bony structures are essentially unremarkable. IMPRESSION: No evidence of acute intracranial pathology.
--- NOTE | 2017-03-08 13:23 | EKG Report ---
Test Performed on : 03/08/2017 08:41:29 AM Test Reason : No Order in [employer] Blood Pressure : / mmHG Vent. Rate : 077 BPM Atrial Rate : 077 BPM P-R Int : 150 ms QRS Dur : 086 ms QT Int : 408 ms P-R-T Axes : 044 028 086 degrees QTc Int : 461 ms Normal sinus rhythm. Normal ECG When compared with ECG of 08-MAR-2017 08:40, (Unconfirmed) No significant change was found Unconfirmed Result
[2017-03-08] MEDS: PROTONIX IV SCH (13:39)
--- NOTE | 2017-03-08 13:56 | HISTORY AND PHYSICAL ---
COMPUTER NETWORK SPECIALIST: Dr. Reed Henriquez. CHIEF COMPLAINT: Obtundation. PRIMARY CARE PROVIDER: Dr. Montez Kumar. HISTORY OF PRESENT ILLNESS: Mr. Ndiaye is a 71-year-old male with a known history of cirrhosis, end-stage liver disease, chronic refractory ascites, and type 2 diabetes, who is currently at [facility]. He was found this morning minimally responsive and was brought to the ER for evaluation. The at the bedside does not currently stay with him. She lives at home and she reports that she got a call from [facility] saying he was obtunded and that he needed to go to the ER. The last time she spoke with him was sometime yesterday afternoon. He was complaining of being tired, but nothing acute. He has not been complaining of fevers or chills. No abdominal pain. He actually had a paracentesis done yesterday, at which time 13 L of fluid was removed. When he got to the ER today, he had laboratories done which showed he had a ammonia of 216 and a creatinine of 1.8. On physical exam, he is obtained and only localizes to pain. His vital signs are stable, but given his level of obtundation and history, we are going to put him in the ICU. We have also ordered a stat head CT. PAST MEDICAL HISTORY: 1. End-stage liver disease. 2. Portal hypertension. 3. Hepatitis C. 4. Hypertension. 5. Hyperlipidemia. 6. Refractory ascites. 7. Chronic kidney disease, stage 4. SURGICAL HISTORY: He has multiple paracenteses. He has also had a cyst removed from his abdomen. SOCIAL HISTORY: There is no history of tobacco, alcohol, or drug use. This is per record review. He currently resides at [facility]. FAMILY HISTORY: Noncontributory. REVIEW OF SYSTEMS: Unable to be obtained. ALLERGIES: No known drug allergies. HOME MEDICATIONS: Lasix 40 mg daily; Icar C 1 daily; lactulose 45 mL p.o. t.i.d.; Centrum Silver 1 daily; Prilosec 40 mg daily; KCl 10 mEq p.o. daily; Xifaxan 550 mg p.o. b.i.d. ; Aldactone 100 mg daily; Viread 300 mg daily. PHYSICAL EXAMINATION: VITAL SIGNS: Blood pressure is 120/82, respiratory rate is 16, O2 saturation is 100% on room air, temperature is 97.3 degrees. GENERAL: This is a chronically ill-appearing male, lying in hospital bed in no acute distress, but he is quite obtunded. NEUROLOGIC: The patient is obtunded. He localizes to pain. He will not open his eyes, nor will he follow commands. HEENT: Head is atraumatic and normocephalic. His pupils are equal and sluggish bilaterally. Oral mucosa is moist. Trachea is midline. NECK: Supple. No JVD. No carotid bruits. LUNGS: Diminished at the bases, but clear. CARDIOVASCULAR: Regular rate and rhythm. S1 and S2 noted. No murmurs. GASTROINTESTINAL: Overtly distended, but soft. Ascitic wave is noted. Bowel sounds are active. EXTREMITIES: No edema, clubbing, or cyanosis. Pulses are palpable bilaterally. DIAGNOSTIC DATA: Chest x-ray: Small scarring in the mid right lung, otherwise negative. Laboratory work: WBC 5.62, hemoglobin 9.1, hematocrit 25.9, MCV 103.6, platelet count 128,000. PT 13.4, INR 1.26. ABG on room air: pH 7.52, CO2 of 26, O2 of 110, bicarbonate 24.2. Hemoglobin 9.4. Sodium 136, potassium 5.3, chloride 103, CO2 of 19, anion gap 14, BUN 36, creatinine 1.8, glucose 216, calcium 8.6, AST 44, ALT 31, alkaline phosphatase 120, ammonia 216. proBNP 966. TSH 2.02. UA is negative. ASSESSMENT AND PLAN: 1. Hepatic encephalopathy. The patient is lethargic. Will give a lactulose retention enema. GI consult. 2. Acute on chronic renal failure: This is stable. We will continue to monitor. IV fluid hydration has also been ordered. 3. Diabetes mellitus type 2. We will add pattern sugars and sliding scale insulin. 4. Hypertension. Stable. 5. Hepatitis C. Aware. 6. Anemia of chronic disease. Will monitor the patient's hemoglobin and hematocrit. 7. Refractory ascites. The patient may need a paracentesis. Will defer to the stretcher helper. 8. Deep vein thrombosis prophylaxis with SCDs. Further recommendations to follow. Dictated by ADELITA Ng for Noreen Burnette MD cc: ADELITA Ng MD The patient was seen and examined by me. I agree with the assessment and plan as dictated. MTDD
[2017-03-08] MEDS ORDERED: HUMALOG SUBQ SCH (16:00)
[2017-03-08] MEDS: HUMULIN R SUBQ SCH ×2 (17:14→21:17)
[2017-03-08] MEDS ORDERED: XIFAXAN NG SCH (21:00)
[2017-03-09] MEDS: NS 1,000 ML IV SCH ×2 (01:30→08:03)
[2017-03-09] MEDS: HUMULIN R SUBQ SCH ×4 (06:41→21:02)
[2017-03-09 07:50] LABS: HEMATOCRIT 28.5 % (42.0-52.0); HEMOGLOBIN 9.9 g/dL (14.0-18.0); INR 1.27; MCH 36.3 PG (27-31); MCHC 34.7 g/dL (33-37); MCV 104.4 FL (81-99); MPV 9.9 FL (7.4-10.4); PROTIME 13.5 Seconds (9.2-11.7); RBC 2.73 XMIL (4.7-6.1)
[2017-03-09 08:12] LABS: ALBUMIN 3.2 g/dL (3.5-5.0); CALCIUM 8.7 mg/dL (8.8-10.2); POTASSIUM 4.3 mmol/L (3.5-5.1); TOTAL BILIRUBIN 1.74 mg/dL (0.20-1.00); TOTAL PROTEIN 6.3 g/dL (6.3-8.3)
[2017-03-09] MEDS ORDERED: ALDACTONE PO SCH (09:00)
[2017-03-09] MEDS: LACTULOSE PO SCH ×3 (11:00→21:06)
[2017-03-09] MEDS: XIFAXAN PO SCH ×2 (11:00→21:05)
[2017-03-09] MEDS: PROTONIX IV SCH ×2 (13:02→21:05)
[2017-03-09] MEDS: SODIUM CHLORIDE 0.9% INJ SCH (13:02)
--- NOTE | 2017-03-09 13:50 | PROGRESS NOTE ---
DATE: 03/09/2017 SUBJECTIVE: The patient is more awake and alert today. He knows where he is and was able to tell me a little bit about what led to the hospital stay. OBJECTIVE: Vital Signs: Temperature 98 degrees, blood pressure 122/76, heart rate 91, respirations 10, O2 saturations 100% on room air. General: This is an elderly chronically ill- appearing male lying in bed in no acute distress. Head: Normocephalic, atraumatic. Heart: S1, S2. Normal. Lungs: Clear to auscultation bilaterally. No wheezes, no rales. No rhonchi. Abdomen: Positive bowel sounds. Soft, distended, positive for ascites, nontender. Extremities: No edema. No cyanosis. No calf tenderness. Neurologic: The patient is awake and alert. He is able to move all 4 extremities. LABS: White blood cell count 5.5, hemoglobin 9.9, hematocrit 28, platelets 105, 000. INR 1.27. Sodium 139, potassium 4.3, chloride 107, CO2 19, BUN 32, creatinine 1.5, glucose 126, total bilirubin 1.7, AST 62, ALT 33. ASSESSMENT AND PLAN: 1. Hepatic encephalopathy. Improved. The patient is more awake and alert. Will restart lactulose and rifaximin. 2. Refractory ascites. The patient's abdomen is quite distended. He may benefit from another paracentesis. 3. Stage 3 chronic kidney disease. Stable. 4. Hepatitis C. Aware. 5. Hypertension. Controlled. 6. End-stage liver disease. Aware. 7. Thrombocytopenia. Most likely secondary to the patient's liver dysfunction. Will continue to monitor this closely. cc: Noreen Burnette MD MTDD
[2017-03-09] MEDS ORDERED: LACTULOSE PO SCH (17:00)
[2017-03-09] MEDS: LEVAQUIN 500 MG/D5W 500 MG/100 ML IVPB IV SCH (17:09)
[2017-03-09] MEDS: ICAR-C PO SCH (21:05)
[2017-03-10 06:09] LABS: INR 1.27; PROTIME 13.5 Seconds (9.2-11.7)
[2017-03-10 06:15] LABS: HEMATOCRIT 27.9 % (42.0-52.0); HEMOGLOBIN 9.7 g/dL (14.0-18.0); MCH 36.5 PG (27-31); MCHC 34.8 g/dL (33-37); MCV 104.9 FL (81-99); MPV 9.5 FL (7.4-10.4); RBC 2.66 XMIL (4.7-6.1)
[2017-03-10] MEDS: HUMULIN R SUBQ SCH ×3 (06:18→17:29)
[2017-03-10 06:34] LABS: CALCIUM 8.9 mg/dL (8.8-10.2); POTASSIUM 4.5 mmol/L (3.5-5.1); TOTAL BILIRUBIN 1.06 mg/dL (0.20-1.00)
[2017-03-10] MEDS: SODIUM CHLORIDE 0.9% INJ SCH (08:02)
[2017-03-10] MEDS: CENTRUM SILVER PO SCH (08:02)
[2017-03-10] MEDS: XIFAXAN PO SCH (08:02)
[2017-03-10] MEDS: PROTONIX IV SCH (08:02)
[2017-03-10] MEDS: ICAR-C PO SCH (08:02)
[2017-03-10] MEDS: LACTULOSE PO SCH ×2 (08:03→17:30)
[2017-03-10] MEDS ORDERED: ICAR-C PO SCH (09:00)
[2017-03-10] MEDS ORDERED: ALBUMIN 25% IV SCH (09:00)
--- NOTE | 2017-03-10 13:23 | CONSULTATION ---
DATE OF CONSULTATION: 03/09/2017 ADMITTING PHYSICIAN: Dr. Noreen Burnette. PRIMARY CARE DOCTOR: None. REASON FOR CONSULTATION: Liver cirrhosis, encephalopathy. HISTORY OF PRESENT ILLNESS: Mr. Ndiaye is a 71-year-old male, who has end-stage liver disease, cirrhosis, chronic refractory ascites, type 2 diabetes, portal hypertension, hepatic encephalopathy, who was admitted, on 03/08/2017, with altered mental status. The patient was residing at [facility], and he was found in the morning with minimal responsiveness, was brought to the ER. His ammonia was noted to be 216. At that time, he was given lactulose enemas and NGT was inserted, and was started on Xifaxan and lactulose through the NG. He started to improve. His ammonia is now down to 100. According to the records, patient had a recent paracentesis done, on 03/07/2017, which 13 L of fluid was removed. He was given 100 g of albumin after the paracentesis. The patient denies today of any abdominal pain, fevers, chills, nausea, vomiting. He denies noticing blood in the stools. The patient had been in the ICU for the last 24 hours, and is improving slowly. PAST MEDICAL HISTORY: 1. End-stage renal disease, secondary to nonalcoholic steatohepatitis cirrhosis. 2. Portal hypertension. 3. Hepatitis C antibody positive with spontaneous clearance. 4. Heterozygous for hemochromatosis gene. 5. Hypertension. 6. Hyperlipidemia. 7. Refractory ascites, requires presence every week. The last one was 2 days ago with 13 L of fluid removal. 8. Chronic kidney disease, stage 4. PAST SURGICAL HISTORY: 1. Multiple paracenteses. 2. Cyst removal from the abdomen. 3. EGD and colonoscopy. SOCIAL HISTORY: No history of alcohol, tobacco or illicit drugs. 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 [facility]. FAMILY HISTORY: No history of liver disease in family. REVIEW OF SYSTEMS: Limited as the patient has some hepatic encephalopathy, but is able to improve and answer simple questions. He denies any nausea vomiting, vomiting blood, passing of the stools denies any fevers, rigors, chills. Denies any chest pain. MEDICATIONS AT HOME: 1. Lasix 40 mg a day. 2. Aldactone 100 mg every day. 3. Xifaxan 5 mg p.o. b.i.d. 4. Centrum Silver once daily. 5. Prilosec 40 mg daily. 6. KCl 10 mg p.o. daily. 7. Lactulose 40 mL t.i.d. 8. Zyprexa 5 mg p.o. b.i.d. 9. Iron 1 capsule once daily. 10. Multivitamin once daily. 11. He does NOT take Viread, so please take it off his records. MEDICATION IN THE HOSPITAL: Include: 1. Albumin 25 g IV once daily for 3 days. 2. Sliding scale insulin 3. Iron-C once daily. 4. Lactulose 40 g p.o. t.i.d. 5. Levaquin 5 mg IV once daily. 6. Protonix IV q.24 hours. 7. Xifaxan 5 mg p.o. b.i.d. 8. He is currently on a diabetic diet and Glucerna shakes 3 times daily. PHYSICAL EXAMINATION: vital signs: Temperature 97.9, pulse rate of 75, respiratory rate 20, blood pressure 118/76, saturating 91% room air. Body weight of 132 pounds, BMI 22.4 kg. General: The patient is admitted, lying in bed, in no acute distress. HEENT : PERRLA. Mild icterus. Pupils equal, react to light. Neck: Supple. Chest: Decreased Breath sounds at the bases Cardiac: Regular rhythm. No murmur. Abdomen: Distended. Positive ascites. No rebound or guarding. Bowel sounds are present. Extremities: No cyanosis, clubbing. Neurologic: He is awake, and answers simple questions. He is getting better from yesterday, per the nursing staff. LABS: White count of 5.5, hemoglobin and hematocrit is 9.9 and 28.5, platelet count of 105,000, MCV of 104.4. INR 1.27, PT of 13.5. ABG, pH of 7.5, pCO2 of 26, PO2 of 110. His lactate at 1.9, this is on room air. Sodium 139, potassium 4.3, chloride 107, bicarb 19, anion gap of 13, BUN of 32, creatinine 1, glucose of 126, calcium is 8.7, total bilirubin is 1.74. AST 62, ALT 33, alkaline phosphatase 88. Total protein 6.3, albumin of 3.2, ammonia 101. He has had 2.02 urinalysis showing trace protein. Toxicology screen negative for salicylates, negative for Tylenol. Tox screen is negative. Alcohol level 0. EGD AND COLONOSCOPY, DATED 02/03/2015: 1. Grade 1 esophagitis in distal esophagus. 2. Severe portal hypertensive gastropathy in the body of the stomach. 3. Small nonbleeding polyp in the distal gastric body and gastric antrum. 4. Polyps in the colon. 5. Hemorrhoids. IMPRESSION/PLAN: 1. End-stage liver disease, secondary to liver cirrhosis, secondary to nonalcoholic steatohepatitis, complicated with refractory ascites, requiring multiple paracenteses by the radiologist. 2. Thrombocytopenia with very mild coagulopathy. 3. Hypovolemia. 4. Admitted with hepatic encephalopathy, worsening pneumonia after the paracenteses. RECOMMENDATIONS: 1. Will continue with albumin 25 g IV once daily for 3 to 5 days. 2. We will continue on lactulose 45 mL p.o. t.i.d., and hold for more than 3 bowel movements in 24 hours. 3. We will continue Xifaxan 550 mg p.o. b.i.d. 4. We will continue the patient on Levaquin once daily for 2 weeks. 5. If patient continues to have worsening abdominal distention, then he may need a repeat paracentesis on Saturday with Radiology. Will need to check fluid studies with that tap. 6. We will continue on Protonix IV b.i.d. 7. We will continue patient on Iron C b.i.d. and multivitamin once daily. 8. The patient was encouraged to keep his appointment at Clinic for liver transplant evaluation. So far, he has been unable/noncompliant with follow-ups at [facility] partly because he has been in and out of the hospital. 9. Further recommendations pending the hospital course. cc: MD BREE Cruz
--- NOTE | 2017-03-10 14:58 | PROGRESS NOTE ---
DATE: 03/10/2017 SUBJECTIVE: The patient states that he feels good today. His abdomen is quite distended. He denies having any pain. He is having regular bowel movements. OBJECTIVE: Vital Signs: Temperature 97.6 degrees, blood pressure 115/77, heart rate 82, respirations 20, O2 saturations 100% on room air. General: This is an elderly male lying in bed in no acute distress. Head: Normocephalic, atraumatic. Heart: S1, S2. Normal. Regular rate and rhythm. Lungs: Clear to auscultation bilaterally. No wheezes, no rales. No rhonchi. Abdomen: Distended, nontender, positive for ascites. Extremities: No edema. No cyanosis. No calf tenderness. Neurologic: The patient is alert oriented x3. LABS: White blood cell count 5, hemoglobin 9.7, hematocrit 27, platelets 118,000. INR 1.27. Sodium 140, potassium 4.5, chloride 112, CO2 19, BUN 34, creatinine 1.5, glucose 126, ammonia 116. ASSESSMENT AND PLAN: 1. Hepatic encephalopathy. Improved. Continue on rifaximin and lactulose as ordered. 2. Refractory ascites. The patient's abdomen is distended again. Will defer to the clinical care leader regarding another paracentesis. 3. Chronic kidney disease. Stable. 4. Hepatitis C. Aware. 5. End-stage liver disease. Aware. 6. Thrombocytopenia. Stable. 7. The patient is stable for transfer to the medical floor. Will consult physical therapy. cc: Noreen Burnette MD
[2017-03-10] MEDS ORDERED: VITAMIN K 10 MG in NS 50 ML IV ONE (15:29)
--- NOTE | 2017-03-10 17:24 | PROGRESS NOTE ---
DATE: 03/10/2017 SUBJECTIVE: The patient is resting in bed. He is feeling better, but his abdominal distention has gotten worse. He feels discomfort in the abdomen. He just had paracentesis 4 days ago, but the paracentesis has come back again. This is secondary to refractory ascites related to portal hypertension and cirrhosis. The patient has no fevers, rigors, or chills. He was able to eat breakfast this morning. He is having brown stools. OBJECTIVE: Vital signs: Temperature 97.7, pulse of 72, respirations 20, blood pressure 125/88, saturating 100% on room air. General Appearance: Moderately built, moderately nourished, lying in bed, in no acute distress. HEENT: Pupils equal, round, and reactive to light and accommodation. Extraocular movements intact. Mild icterus. Neck: Supple. Abdomen: Distended. Positive ascites. No guarding or rebound. Bowel sounds are present. Extremities: No cyanosis or clubbing. Neurologic: Alert and awake. Answers all questions. LABS: Hemoglobin and hematocrit is 9.7 and 27.9, white count of 5.02. Platelet count of 118,000, MCV of 104.9. INR 1.27. PT of 13.5. Sodium 140, potassium 4.5, chloride 112, bicarb of 19, anion gap of 9. BUN of 34, creatinine 1.5, glucose of 126, calcium is 8.9. Total bilirubin is 1.06, AST 61, ALT 36. Alkaline phosphatase is 96. Total protein is 6, albumin of 3, ammonia 116, glucose of 156. IMPRESSION AND PLAN: 1. End stage liver disease secondary to liver cirrhosis secondary to fatty liver disease, complicated with portal hypertension, refractory ascites, hepatic encephalopathy. In this regard we will schedule him for ultrasound-guided paracentesis tomorrow with the radiologist. He will be NPO past midnight. We will check the fluid studies for albumin cell count with differential, culture, and cytology. He will continue on low sodium diet and free fluid restriction to less than 1.5 L 24 hours. 2. He will continue the Xifaxan 550 mg twice daily and lactulose 45 mL 3 times daily. 3. Chronic kidney disease. Stable for now. 4. Thrombocytopenia. Stable for now. 5. Gastrointestinal prophylaxis with PPIs. 6. Anemia. Will continue on iron C BID and MVI QD. 7. Further recommendations to follow pending the hospital course. CC: Dr. Noreen Burnette cc: Reed Henriquez MD MTDD
[2017-03-10] MEDS: LEVAQUIN 500 MG/D5W 500 MG/100 ML IVPB IV SCH (17:39)
[2017-03-11] MEDS: PROTONIX IV SCH ×2 (00:03→00:15)
[2017-03-11] MEDS: LACTULOSE PO SCH ×4 (00:03→21:08)
[2017-03-11] MEDS: VITAMIN K PO ONE ×2 (00:03→00:12)
[2017-03-11] MEDS: ICAR-C PO SCH ×3 (00:04→21:08)
[2017-03-11] MEDS: LEVAQUIN PO SCH ×2 (00:04→11:53)
[2017-03-11] MEDS: XIFAXAN PO SCH ×3 (00:04→21:09)
[2017-03-11] MEDS: HUMULIN R SUBQ SCH ×4 (00:08→21:16)
[2017-03-11] MEDS: LEVAQUIN 500 MG/D5W 500 MG/100 ML IVPB IV SCH (00:11)
[2017-03-11] MEDS: PROTONIX PO SCH ×3 (00:51→21:08)
[2017-03-11 06:40] LABS: HEMATOCRIT 25.8 % (42.0-52.0); HEMOGLOBIN 8.8 g/dL (14.0-18.0); MCH 36.5 PG (27-31); MCHC 34.1 g/dL (33-37); MCV 107.1 FL (81-99); MPV 9.1 FL (7.4-10.4); RBC 2.41 XMIL (4.7-6.1)
[2017-03-11 07:01] LABS: ALBUMIN 3.1 g/dL (3.5-5.0); CALCIUM 8.8 mg/dL (8.8-10.2); POTASSIUM 4.3 mmol/L (3.5-5.1); TOTAL BILIRUBIN 0.9 mg/dL (0.20-1.00)
[2017-03-11 07:25] LABS: INR 1.26; PROTIME 13.4 Seconds (9.2-11.7)
[2017-03-11] MEDS ORDERED: ALBUMIN 25% IV ONE (10:58)
[2017-03-11] MEDS: CENTRUM SILVER PO SCH (11:53)
--- NOTE | 2017-03-11 12:54 | Diag Imaging Result Document ---
PROCEDURE NAME: US PARACENTESIS - 03/11/2017 ULTRASOUND-GUIDED PARACENTESIS: COMPARISON: 03/07/2017 TECHNIQUE: The risks and benefits of the procedure were discussed with the patient. All questions were answered. Written and verbal informed consent was obtained. Overlying skin was prepped and draped in sterile fashion. Anesthesia was achieved with injection of 7 mL of 1% lidocaine. The paracentesis catheter was advanced in the right lower quadrant until the return of ascites fluid. 8.1 L was removed used evacuated bottles. The catheter was withdrawn intact. The patient reported no symptoms from the procedure. IMPRESSION: Successful and uncomplicated ultrasound-guided paracentesis.
--- NOTE | 2017-03-11 13:23 | PROGRESS NOTE ---
DATE: 03/11/2017 SUBJECTIVE: The patient is resting in bed. He is NPO. He is going down for ultrasound-guided paracentesis by the radiologist today. He denies any nausea, vomiting blood or passing blood in the stools. He denies any fevers, rigors, or chills. He had 1 soft brown bowel movement today. Yesterday, total, he had 3 bowel movements. He is on lactulose and Xifaxan. OBJECTIVE: Vital signs: Temperature 98.1, pulse rate of 81, respiratory rate 18, blood pressure 93/59. Saturating 100% on room air. General Appearance: Thinly built, lying in bed, in no acute distress. HEENT: Mild icterus. Pupils equal, react to light. Neck: Supple. Abdomen: Distended, positive ascites. No guarding. No rebound. Bowel sounds are present. Extremities: No cyanosis, clubbing. Neurologic: He is alert and awake. Answers questions. LABORATORY DATA: Hemoglobin and hematocrit is 8.8 and 25.8, white count of 4.6 , platelet count of 92,000, MCV of 107.1, INR 1.26. PT of 13.4, sodium 138, potassium 4.3, chloride 109, bicarbonate of 18, anion gap of 11, BUN of 36, creatinine 1.5, glucose of 141, calcium is 8.8, total bilirubin is 0.9. AST 49, ALT 13. Alkaline phosphatase of 91, total protein is 6, albumin of 3.1. Ammonia 143, which has gone up from yesterday. IMPRESSION AND PLAN: 1. Refractory ascites. Patient is requiring a second paracentesis within 4 day period. The last paracentesis was done on , 4 days ago on 03/07/2017. At that time, 13 L were taken out by the radiologist. The patient is not a candidate for TIPS because of worsening hepatic encephalopathy. The patient is already on lactulose 45 mL t.i.d. and Xifaxan 550 mg p.o. b.i.d., and despite that, his ammonia is going up. It could be secondary to spontaneous bacterial peritonitis or ongoing small amounts of gastrointestinal losses. 2. End-stage liver disease secondary to liver cirrhosis secondary to fatty liver disease complicated with portal hypertension, hepatic encephalopathy, thrombocytopenia, mild coagulopathy, hypoalbuminemia, and I will continue to avoid hepatotoxic drugs and restrict the free fluid to less than 1.5 L per 24 hours. Also give low sodium diet less than 2 g per 24 hours. 3. Hepatic encephalopathy. As above Xifaxan 550 mg p.o. b.i.d., and lactulose 45 mL t.i.d. 4. History of portal hypertensive gastropathy on last EGD in 2014. We will continue on Protonix and Carafate for now and give Iron C b.i.d. and multivitamin once daily. 5. We will send the fluid studies from the paracentesis today to evaluate for spontaneous bacterial peritonitis although patient is already being covered with Levaquin. 6. Gastrointestinal problems. Proton pump inhibitors as above. 7. Bowel regimen. Already on lactulose. The above plan was discussed with the patient and the RN. All questions were answered. cc: MD Noreen Cruz MD MTDD
--- NOTE | 2017-03-11 16:30 | PROGRESS NOTE ---
DATE: 03/11/2017 SUBJECTIVE: The patient has no major complaints. A little bit lethargic but not really too bad. OBJECTIVE: Blood pressure 93/59, heart rate of 81, respiratory 18, temperature 98.1 degrees. Cardiovascular: Regular rate and rhythm. Pulmonary: Bilateral breath sounds. Clear to auscultation. GI: Soft, nontender, nondistended. Bowel sounds are positive. LABORATORY DATA: Hemoglobin and hematocrit of 8 and 25. Platelets 92,000. White count 4.6, INR 1.26. BUN and creatinine of 36 and 1.5. PROBLEM LIST: 1. Refractory ascites. He is status post recurrent paracentesis today. Initially, I think they took off 13 L. This time, they took off 8 L. Clinically, he is stable. 2. I guess we are holding diuretics because of concern over dehydration. 3. Hepatic encephalopathy. We will continue and lactulose. 4. Chronic kidney disease. Monitor kidney function. I may start some low-dose diuretics just to kind of help with ascites. DISPOSITION: Pending clinical status. Possibly home in the next 1-2 days. cc: Rufino Slater MD
[2017-03-11] MEDS: ALDACTONE PO SCH (17:03)
[2017-03-11] MEDS: LASIX PO SCH (17:03)
[2017-03-11] MEDS: OXY IR PO PRN ×2 (17:40→23:51)
[2017-03-11] MEDS: CARAFATE LIQUID PO SCH (21:08)
[2017-03-11 22:44] LABS: DIFF NEEDED? YES; WBC BF 94 /cumm
[2017-03-11 22:45] LABS: MONOS 82 %; POLYS 18 %
[2017-03-12 06:20] LABS: HEMATOCRIT 24.9 % (42.0-52.0); HEMOGLOBIN 8.4 g/dL (14.0-18.0); MCH 36.5 PG (27-31); MCHC 33.7 g/dL (33-37); MCV 108.3 FL (81-99); MPV 9.4 FL (7.4-10.4); RBC 2.3 XMIL (4.7-6.1)
[2017-03-12 06:25] LABS: ALBUMIN 2.8 g/dL (3.5-5.0); CALCIUM 8.4 mg/dL (8.8-10.2); POTASSIUM 4.8 mmol/L (3.5-5.1); TOTAL BILIRUBIN 0.91 mg/dL (0.20-1.00); TOTAL PROTEIN 5.7 g/dL (6.3-8.3)
[2017-03-12] MEDS: HUMULIN R SUBQ SCH ×4 (06:26→20:54)
[2017-03-12] MEDS: PROTONIX PO SCH ×2 (06:26→20:54)
[2017-03-12] MEDS: OXY IR PO PRN (06:28)
[2017-03-12] MEDS: LEVAQUIN PO SCH (09:56)
[2017-03-12] MEDS: XIFAXAN PO SCH ×2 (09:56→20:54)
[2017-03-12] MEDS: LACTULOSE PO SCH ×3 (09:56→20:53)
[2017-03-12] MEDS: LASIX PO SCH (09:56)
[2017-03-12] MEDS: CARAFATE LIQUID PO SCH ×2 (09:57→20:54)
[2017-03-12] MEDS: CENTRUM SILVER PO SCH (09:57)
[2017-03-12] MEDS: ICAR-C PO SCH ×2 (09:57→20:54)
[2017-03-12] MEDS: ALDACTONE PO SCH (09:57)
--- NOTE | 2017-03-12 13:00 | PROGRESS NOTE ---
DATE: 03/12/2017 SUBJECTIVE: The patient has no focal complaints. OBJECTIVE: Vital Signs: Blood pressure was 99/54, heart rate of 82, respiratory 16, temperature 98.1 degrees. PROBLEM LIST: 1. Hepatic encephalopathy. Ammonia level still elevated, so I do not think he is quite ready to leave. 2. Symptomatic ascites. He has improved. I have put him on some diuretic. He seems to be doing a little bit better from that standpoint. He is on Aldactone. His blood pressure and heart rate are doing okay, so I think I may bump up these medications because he seems to be tolerating it okay. His creatinine did go up a little bit, so we will monitor that. 3. Chronic renal insufficiency. We will continue to monitor. DISPOSITION: Possibly to [facility] soon. cc: Rufino Slater MD
[2017-03-12] MEDS ORDERED: MISC. PHARMACY COMMUNICATION SCH (13:45)
[2017-03-12] MEDS ORDERED: NS 250 ML ONE (14:12)
[2017-03-13] MEDS: OXY IR PO PRN ×2 (03:37→09:44)
[2017-03-13 05:46] LABS: HEMATOCRIT 25.2 % (42.0-52.0); HEMOGLOBIN 8.5 g/dL (14.0-18.0); MCH 36.5 PG (27-31); MCHC 33.7 g/dL (33-37); MCV 108.2 FL (81-99); MPV 9.7 FL (7.4-10.4); RBC 2.33 XMIL (4.7-6.1)
[2017-03-13 05:55] LABS: CALCIUM 8.5 mg/dL (8.8-10.2)
[2017-03-13] MEDS: HUMULIN R SUBQ SCH ×4 (06:12→20:17)
[2017-03-13] MEDS: PROTONIX PO SCH ×2 (06:20→20:17)
[2017-03-13] MEDS: ICAR-C PO SCH ×2 (09:21→20:17)
[2017-03-13] MEDS: XIFAXAN PO SCH ×2 (09:21→20:18)
[2017-03-13] MEDS: LEVAQUIN PO SCH (09:21)
[2017-03-13] MEDS: LASIX PO SCH (09:21)
[2017-03-13] MEDS: ALDACTONE PO SCH (09:21)
[2017-03-13] MEDS: CARAFATE LIQUID PO SCH ×2 (09:21→20:17)
[2017-03-13] MEDS: CENTRUM SILVER PO SCH (09:21)
[2017-03-13] MEDS: LACTULOSE PO SCH ×3 (09:22→20:18)
[2017-03-13] MEDS: PATIENT'S OWN MED PO SCH (09:23)
[2017-03-13] MEDS ORDERED: ALBUMIN 25% IV ONE ×3 (18:40→19:45)
--- NOTE | 2017-03-13 19:17 | PROGRESS NOTE ---
DATE: 03/13/2017 SUBJECTIVE: The patient has no focal complaints. Pleasant. He is sitting up here. OBJECTIVE: Vital Signs: Blood pressure 93/63, heart rate 83, respiratory rate 16, temperature 97.6. Cardiovascular: Regular rate and rhythm. Pulmonary: Bilateral breath sounds. GI: Soft, distended. Not tender. Bowel sounds positive. LABORATORY DATA: Hemoglobin and hematocrit 8 and 25, platelets 82. BUN and creatinine 41 and 1.9. Potassium was 5 cultures are negative. PROBLEM LIST: 1. Hepatic encephalopathy. He is on Rifaximin and lactulose. Really it is baseline for him. I am not really sure what else we are going to be able to offer because I think his mental status is at baseline. I will discuss the case with Dr. Henriquez prior to discharge. 2. Refractory ascites. Continue paracentesis as needed. Again, he unfortunately is reaccumulating. I have tried to add some Aldactone and Lasix, but I feel I have only accomplished some renal insufficiency, more than actually sparing his ascites. We will cut down to low-dose Aldactone and follow. His potassium is rising somewhat, so we will monitor those levels tomorrow. DISPOSITION: Per Dr. Henriquez. I think he is close to his baseline. So, I anticipate going to rehab facility soon. Hopefully, in the next 24 hours. I would strongly consider if no transplant is not an option for him that hospice may be a more appropriate process. cc: Rufino Slater MD
--- NOTE | 2017-03-13 19:40 | PROGRESS NOTE ---
DATE: 03/13/2017 SUBJECTIVE: The patient was sitting in a chair. He denies any new complaints. He is eating better. He is having 1 bowel movement a day despite being on lactulose and Xifaxan .His ammonia is still elevated but he is back to his baseline. The patient will continued to be watched closely. OBJECTIVE: Constitutional: Patient denies any fevers, rigors, chills. Patient denies any nausea, vomiting, vomiting blood, or passing blood in the stools. Vital Signs: Temperature 97.6 degrees, pulse of 80, respiratory rate 16, blood pressure 92/60, saturating on 100% room air. General Appearance: Thinly built, sitting in chair, in no acute distress. HEENT: Pupils with mild icterus. Neck: Supple. Chest: Decreased breath sounds. Cardiac: Regular rhythm. No murmur. Abdomen: Positive ascites. Distention noted. No guarding or rebound. Extremities: No cyanosis or clubbing. Neurologic: He was alert and awake. Answers simple questions. LABS: Hemoglobin and hematocrit is 8.5 and 25.2, white count of 5.2, platelet count of 82,000, MCV of 108.2, INR 1.26, PT of 13.4, sodium 138, potassium 5, chloride 109, bicarb 29.9, BUN of 41, creatinine 1.9, glucose 115, calcium 8.5, ammonia 127. Fluid studies showed 94 white cells out of which 18 were polymorphonuclear and fluid albumin level was 0.5. AFB smear was negative. IMPRESSION/PLAN: 1. Refractory ascites. Patient continues to accumulate ascites at a very rapid rate and he has mild renal insufficiency so he is on a very small amount of diuretics. His BUN and creatinine are climbing slowly up so we have to be very careful with Lasix and Aldactone. 2. He will be on a low-sodium diet less than 2 g q.24 hours and also free fluid restriction less than 1.5 L q.24 hours. 3. Hepatic encephalopathy and elevated ammonia. Continue on lactulose 45 mL t.i.d. and Xifaxan 550 mg b.i.d. 4. End-stage liver disease secondary to fatty liver disease complicated by portal hypertension, thrombocytopenia, mild coagulopathy, hypoalbuminemia, refractory ascites and encephalopathy. Continue to avoid hepatotoxic drugs. 5. Potential of spontaneous bacterial peritonitis. He will continue on Levaquin 500 mg once daily for 2 weeks. 6. GI prophylaxis with PPIs. 7. Anemia. We will continue him on iron with vitamin C b.i.d. and multivitamin once daily. 8. The above plan was discussed with the patient and the nurse. cc: MD Dr. Forrest Cruz
[2017-03-14] MEDS: OXY IR PO PRN (03:48)
[2017-03-14] MEDS: HUMULIN R SUBQ SCH ×4 (06:24→20:30)
[2017-03-14] MEDS: PROTONIX PO SCH ×2 (06:35→20:30)
[2017-03-14 06:50] LABS: MCH 36.5 PG (27-31); MCHC 33.3 g/dL (33-37); MCV 109.6 FL (81-99); MPV 9.5 FL (7.4-10.4); RBC 2.19 XMIL (4.7-6.1)
[2017-03-14 07:03] LABS: CALCIUM 8.8 mg/dL (8.8-10.2); POTASSIUM 4.8 mmol/L (3.5-5.1)
[2017-03-14] MEDS: CARAFATE LIQUID PO SCH ×2 (08:46→20:30)
[2017-03-14] MEDS: CENTRUM SILVER PO SCH (08:47)
[2017-03-14] MEDS: ICAR-C PO SCH ×2 (08:47→20:30)
[2017-03-14] MEDS: LEVAQUIN PO SCH (08:47)
[2017-03-14] MEDS: ALDACTONE PO SCH (08:47)
[2017-03-14] MEDS: XIFAXAN PO SCH ×2 (08:48→20:30)
[2017-03-14] MEDS: LACTULOSE PO SCH ×3 (08:48→20:29)
[2017-03-14] MEDS: PATIENT'S OWN MED PO SCH (08:49)
--- NOTE | 2017-03-14 12:52 | PROGRESS NOTE ---
DATE: 03/14/2017 SUBJECTIVE: Patient is resting in bed. He denies any new complaints. He complains of mild abdominal distention. He is eating better. His was present. We discussed the hospital course and prognosis with the patient's at bedside. Patient denies any fevers, rigors, chills, nausea, vomiting, or vomiting blood. He had 1 bowel movement today. OBJECTIVE: Vital signs: Temperature 97.8, pulse rate of 76, respiratory rate of 16, blood pressure of 94/58, saturating 100% on room air. General Appearance: Thinly built, lying in bed, in no acute distress. HEENT: Pale conjunctivae. No icterus. Neck: Supple. Abdomen: Mildly distended. Positive ascites. No rebound. No guarding. Extremities: No cyanosis, clubbing. Neurologic: Awake and alert. Answers all questions. LABS: Hemoglobin and hematocrit is 8 and 24, white count of 4.6, platelet count of 68,000, MCV of 109.6. INR 1.26. Sodium 135, potassium 4.8, chloride 106, bicarb 29.9, BUN of 42, creatinine 1.9, glucose of 134, calcium is 8.8, ammonia 114. Peritoneal fluid showed culture was negative. No anaerobes detected. Blood culture negative x2 for 5 days. IMPRESSION AND PLAN: 1. Anemia which has worsened a little bit so we will give 1 unit of blood transfusion today. Continue on iron and multivitamin. 2. Ascites. Since the patient's BUN and creatinine are worsening. I discussed with Dr. Slater about holding diuretics. In the meantime the patient will continue on a low sodium diet less than 2 g in 24 hours and restrict the free fluid to less than 1.5 L in 24 hours. Will get a paracentesis by the radiologist as needed. 3. Liver cirrhosis. Continue to avoid hepatotoxic drugs. 4. Question of spontaneous bacterial peritonitis, although the cultures are negative. We will finish the course of Levaquin for 2 weeks. 5. Hepatic encephalopathy. Will continue on Xifaxan 550 mg twice daily, lactulose 45 mL 3 times daily. 6. Prognosis. The patient has end-stage liver disease complicated with hepatic encephalopathy, refractory ascites, thrombocytopenia, mild coagulopathy, hypoalbuminemia. He will be going back to the rehab facility. Overall long-term prognosis in this setting is poor but at this time, we will continue with aggressive management. This was discussed with the patient's family at bedside. All questions answered. cc: MD Rufino Cruz MD
[2017-03-14] MEDS ORDERED: NS 500 ML IV SCH (13:32)
[2017-03-14] MEDS ORDERED: NS 500 ML ONE (13:39)
--- NOTE | 2017-03-14 15:43 | PROGRESS NOTE ---
DATE: 03/14/2017 SUBJECTIVE: The patient has no focal complaints. OBJECTIVE: Vital Signs: Blood pressure 100/65, heart rate 78, respiratory rate 20, temperature 97.8 degrees. Cardiovascular: Regular rate and rhythm. Pulmonary: Bilateral breath sounds. Clear to auscultation. GI: Soft, nontender, nondistended. Bowel sounds are positive. LABORATORY DATA: Hemoglobin and hematocrit of 8 and 24, platelets 68. Creatinine 1.9. Ammonia still elevated at 114. PROBLEM LIST: 1. Hepatic encephalopathy. He is close to baseline. He is currently on Xifaxan and lactulose. 2. Anemia has progressed somewhat. We will transfuse 1 unit after discussion with Dr. Henriquez. 3. Cirrhosis appears to be child's class C, but overall compensated. DISPOSITION: The patient is still high risk to go home. He does ambulate, however he requires assistance with ambulation and is very unsafe without constant supervision. He is also very high fall risk and high wander risk. He has persistently elevated ammonia related to cirrhosis which is incurable. This will be difficult to manage without help. The patient lives in an upstairs 1 bedroom apartment and there is concern over being able to manage him there at this point. Again he is at significant risk for decompensation if not monitored. We are working on some placement issues and continued physical therapy management. cc: Rufino Slater MD
[2017-03-15] MEDS: OXY IR PO PRN (05:40)
[2017-03-15] MEDS: PROTONIX PO SCH ×3 (05:40→20:14)
[2017-03-15] MEDS: HUMULIN R SUBQ SCH ×4 (06:31→20:14)
[2017-03-15 06:43] LABS: HEMATOCRIT 25.8 % (42.0-52.0); HEMOGLOBIN 8.8 g/dL (14.0-18.0); MCH 35.8 PG (27-31); MCHC 34.1 g/dL (33-37); MCV 104.9 FL (81-99); MPV 9.7 FL (7.4-10.4); RBC 2.46 XMIL (4.7-6.1)
[2017-03-15 06:58] LABS: CALCIUM 8.8 mg/dL (8.8-10.2); POTASSIUM 5.4 mmol/L (3.5-5.1)
[2017-03-15] MEDS: ICAR-C PO SCH ×2 (08:46→20:14)
[2017-03-15] MEDS: CENTRUM SILVER PO SCH (08:46)
[2017-03-15] MEDS: ALDACTONE PO SCH (08:47)
[2017-03-15] MEDS: CARAFATE LIQUID PO SCH ×2 (08:47→20:14)
[2017-03-15] MEDS: LACTULOSE PO SCH ×3 (08:47→20:14)
[2017-03-15] MEDS: LEVAQUIN PO SCH (08:47)
[2017-03-15] MEDS: XIFAXAN PO SCH ×2 (08:47→20:14)
[2017-03-15] MEDS: PATIENT'S OWN MED PO SCH (09:01)
--- NOTE | 2017-03-15 14:35 | PROGRESS NOTE ---
DATE: 03/08/2017 SUBJECTIVE: Reji Ndiaye came in with increasing abdominal distention and hepatic encephalopathy. I know him from before. The patient has no fever or chills. I was asked to see him to evaluate further. OBJECTIVE: Vital signs: Temperature 97 degrees, pulse 72, respiration 20, blood pressure 120/80, saturation 100% on room air. HEENT: Conjunctival pallor present. Mild scleral icterus present. Heart and lungs: Normal. Abdomen: Distended. No rebound or rigidity. Bowel sounds present. LABS: Hemoglobin and hematocrit are stable at 10 and 30, white count 5, platelet count 118,000. IMPRESSION: 1. Cirrhosis of the liver and portal hypertension. 2. Ascites, refractory. 3. Chronic renal failure. 4. Hepatic encephalopathy. 5. Anemia. RECOMMENDATION: Patient needs a therapeutic paracentesis. We will continue Xifaxan, GI prophylaxis with Protonix. cc: Ruslan Infante MD
--- NOTE | 2017-03-15 14:37 | PROGRESS NOTE ---
DATE: 03/12/2017 SUBJECTIVE: Feeling much better. Sitting in chair. He states his appetite is better. He had paracentesis. He has more room and he is breathing better, he said. He seems to be alert and has no signs of encephalopathy. OBJECTIVE: Vitals: Temperature 97 degrees, pulse 80, respiration 16, blood pressure 90/60, O2 saturation 100% on room air. HEENT: Conjunctival pallor present. Neck: Supple. Trachea midline. Heart and lungs: Normal. Abdomen: Much less distended but he still has ascites. Neurological: No signs of hepatic encephalopathy. LABS: Hemoglobin and hematocrit has come down. Hematocrit is now 25.2, platelet counts are also lower at 82. Creatinine stable at 1.9. IMPRESSION AND PLAN: 1. Cirrhosis of the liver. Stable. 2. Refractory ascites status post paracentesis and looking better. 3. Chronic renal failure. Stable. 4. Hepatic encephalopathy. Controlled with medication. 5. Anemia but no signs of any active gastrointestinal bleeding. Continue GI prophylaxis with Protonix. -7 cc: Ruslan Infante MD
--- NOTE | 2017-03-15 14:38 | PROGRESS NOTE ---
DATE: 03/15/2017 SUBJECTIVE: Feeling much better. He looks stronger, alert, enjoying his meal. Has no complaints. Very alert and no signs of hepatic encephalopathy. OBJECTIVE: Vital Signs: Temperature 98 degrees, pulse 76, respiration 16, blood pressure 96/68, O2 saturation 100%. HEENT: Scleral icterus. Mild conjunctival pallor present. Neck: Supple. Trachea in the midline. Abdomen: Still there is no reaccumulation of ascites although he does have some ascites. Bowel sounds present and normal. Extremities: No edema. Neurological: Intact. No signs of encephalopathy. LABS: Hematocrit is slightly down at 24, platelet count again lower at 68. The electrolytes are normal. BUN and creatinine are stable, creatinine 1.9. IMPRESSION: 1. Cirrhosis of the liver. 2. Ascites. 3. Chronic renal failure. 4. Anemia. 5. Epileptic encephalopathy. RECOMMENDATION: There are no signs of any active bleeding although he has anemia which is chronic. The patient's electrolytes are stable on diuretics. There is no sign of hepatic encephalopathy. At this point, the patient is getting ready to be discharged. We will follow him as an outpatient. -9 cc: Ruslan Infante MD
--- NOTE | 2017-03-15 16:08 | ECHO REPORT ---
ORDER DATE: 03/14/2017 INTERPRETING PHYSICIAN: Dr. Prateek Arcos ECHOCARDIOGRAPHIC MEASUREMENTS: Interventricular septum: 1.4 cm. Left ventricular posterior wall: 1.4 cm. Diastolic diameter: 4.2 cm. Left atrium: 4.8 cm. Aortic root: 3.6 cm. SUMMARY OF THE 2-DIMENSIONAL IMAGIN. The mitral valve revealed mild systolic anterior motion of the tip of the mitral valve leaflets. Aortic valve leaflets were trileaflet. Tricuspid valve was normal. Pulmonic valve was normal. There was mild tricuspid regurgitation. 2. Mild mitral regurgitation. Peak velocity across the tricuspid valve was 2.2 m/sec. 3. There is mild tricuspid regurgitation. Peak velocity across the aortic valve was 2.5 m/sec. There is no aortic stenosis. There is trace aortic regurgitation. 4. There is increased interventricular gradient across the intra ventricle with up to 3 m/sec. There is normal left ventricular cavity size with left ventricular hypertrophy and hyperdynamic left ventricular systolic function. Ejection fraction of 75-80%. There is no pericardial effusion or obvious intracardiac mass or thrombus seen. cc: MD Rufino Perez MD
--- NOTE | 2017-03-16 07:24 | DISCHARGE SUMMARY ---
ADMISSION DATE: 03/08/2017 DISCHARGE DATE: 03/14/2017 DATE OF ADMISSION: 03/08/2017. DATE OF DISCHARGE: 03/14/2017. CONSULTATIONS: Dr. Henriquez with gastroenterology. PERTINENT PROCEDURES: Ultrasound-guided paracentesis where a 0.1 L was removed. DISCHARGE DIAGNOSES: 1. Hepatic encephalopathy. The patient remains on rifaximin, lactulose. 2. Refractory ascites. The patient continues to accumulate ascites at a very rapid rate. Continue on very small antidiuretics, being very mindful of his renal insufficiency. Continue with low-sodium diet and increase fluid restrictions less than 1.5 L in a 24 hour period. 3. Elevated ammonia level. The patient is now back at baseline. Continue with lactulose and Xifaxan. 4. End-stage liver disease secondary to fatty liver disease complicated by portal hypertension, thrombocytopenia, mild coagulopathy, hypoalbuminemia, refractory ascites, and encephalopathy. Continue to avoid hepatotoxic drugs. The patient will go back to [facility]. He was denied for [facility] rehabilitation. 5. Potential spontaneous bacterial peritonitis. The patient will continue on Levaquin 500 mg daily for the remainder of 2 weeks. 6. Gastroesophageal reflux disease. Continue with PPIs. 7. Anemia. Continue with vitamin C and MVI. 8. DNR level 2. HOSPITAL COURSE: Mr. Ndiaye is a 71-year-old, male, well known to our service with a history of: 1. Cirrhosis of liver. 2. End-stage renal disease. 3. Chronic refractory. 4. Ascites. 5. Type 2 diabetes. Who is a resident at [facility]. On the day of his admission, he was found to be minimally responsive and was brought to the emergency department for evaluation. He had had a paracentesis done prior to the day of his admission, where they were removed 13 L of fluid. The patient's ammonia level in the emergency department was 216, a creatinine of 1.8.. On physical examination, the patient was obtunded and localized to pain. His vital signs were stable. He was admitted to the Intensive Care Unit given his level of consciousness. He also underwent a head CT that showed no evidence of acute intracranial pathology. GI was consulted. He was given lactulose enemas. He was also started on IV albumin for 3-5 days. When the patient's mental status improved, he was started back on his home lactulose as well as Xifaxan. He underwent an ultrasound-guided paracentesis on 03/11/2017, where they were able to remove 8.1 L of fluid. The patient continued to have elevation in his ammonia level. He was continued on his lactulose and Xifaxan. The patient also still has refractory ascites. He was placed on a low dose of Lasix as well as Aldactone, being very mindful of his renal insufficiency. The patient will continue on a low- sodium diet, less than 2 g in 24 hours and also free fluid restrictions less than 1.5 L in 24 hours. He will continue on Levaquin 500 mg p.o. daily for a total of 2 weeks for a potential of SBT. His ammonia level is now back to baseline. The patient is appropriate for discharge back to rehabilitation today. The spoke with social work case manager. They did want to try to go to [facility]. However, he was denied so he will return to [facility]. VITAL SIGNS: Temperature is 98.2 degrees, heart rate 86, respirations 16, blood pressure 93/53, O2 is 100% on room air. DISCHARGE DIET: Diabetic with Glucerna shakes 3 times a day. DISCHARGE MEDICATIONS: 1. Lactulose 45 mL p.o. t.i.d. 2. Levaquin 500 mg p.o. daily for 9 more days. 3. Centrum Silver 1 each p.o. daily. 4. Xifaxan 550 mg p.o. b.i.d. 5. Aldactone 12.5 mg p.o. daily. 6. Carafate 1 g p.o. every 12 hours. 7. Icar C 1 each p.o. b.i.d. DISCHARGE DISPOSITION: The patient is being discharged back to [facility]. CODE STATUS: He was a DNR level 1 while in our facility. DISCHARGE INSTRUCTIONS: He will need to: 1. A low-sodium diet, less than 2 g every 24 hours as well as a fluid restriction less than 1.5 L every 24 hours. 2. Continue his full course of p.o. antibiotics. FOLLOWUP CARE: 1. Follow up with Dr. Henriquez for outpatient paracentesis. 2. The patient can return to the emergency room for any worsening of symptoms. TIME SPENT ON DISCHARGE: Discharge time greater than 30 minutes. This is ADELITA Lala, doing a discharge summary for Dr. Slater. Dictated by ADELITA Lala for Rufino Slater MD cc: Rufino Slater MD
--- NOTE | 2017-03-16 07:24 | PROGRESS NOTE ---
DATE: 03/16/2017 SUBJECTIVE: The patient has no focal complaints. No bleeding. Tolerating p.o. without difficulty. No shortness of breath. OBJECTIVE: Vital Signs: Blood pressure 126/86, heart rate 90, respiratory rate 18, temperature 98 degrees. Cardiovascular: Regular rate and rhythm. Pulmonary: Bilateral breath sounds. Clear to auscultation. Gastrointestinal: Abdomen is soft, nontender, nondistended. Bowel sounds are positive. LABORATORY DATA: Hemoglobin and hematocrit 8.8 and 25.8. White count 5, platelets 70,000. BUN and creatinine 41 and 1.9. Potassium of 5.4. PROBLEM LIST: 1. Hepatic encephalopathy. He appears to be at baseline. We will continue lactulose and appears to be stable. 2. Refractory ascites. We will continue to monitor. We attempted to give him Lasix and Aldactone, but it has led to hyperkalemia and renal insufficiency so we will continue to follow. Use subjective paracenteses. 3. Anemia, appears to be stable. We will continue to monitor. No gross evidence of bleeding. DISPOSITION: Is difficult. He is going to be difficult to managed at home, but rehab options may be limited. We are trying to pursue that at this time. We will continue monitor. cc: Rufino Slater MD
[2017-03-16] MEDS: HUMULIN R SUBQ SCH ×4 (08:12→20:55)
[2017-03-16] MEDS: XIFAXAN PO SCH ×2 (08:21→20:54)
[2017-03-16] MEDS: LACTULOSE PO SCH ×3 (08:22→20:54)
[2017-03-16] MEDS: CARAFATE LIQUID PO SCH ×2 (08:22→20:54)
[2017-03-16] MEDS: CENTRUM SILVER PO SCH (08:22)
[2017-03-16] MEDS: ICAR-C PO SCH ×2 (08:22→20:54)
[2017-03-16] MEDS: LEVAQUIN PO SCH (08:22)
[2017-03-16] MEDS: PATIENT'S OWN MED PO SCH (08:23)
[2017-03-16 08:47] LABS: ALBUMIN 2.5 g/dL (3.5-5.0); CALCIUM 8.6 mg/dL (8.8-10.2); POTASSIUM 5.1 mmol/L (3.5-5.1); TOTAL BILIRUBIN 0.84 mg/dL (0.20-1.00); TOTAL PROTEIN 5.3 g/dL (6.3-8.3)
[2017-03-16 09:12] LABS: HEMATOCRIT 24.9 % (42.0-52.0); HEMOGLOBIN 8.4 g/dL (14.0-18.0); MCH 34.9 PG (27-31); MCHC 33.7 g/dL (33-37); MCV 103.3 FL (81-99); MPV 10.4 FL (7.4-10.4); RBC 2.41 XMIL (4.7-6.1)
--- NOTE | 2017-03-16 16:49 | PROGRESS NOTE ---
DATE: 03/16/2017 SUBJECTIVE: Patient has no complaints. He pulled out his PICC line this morning. OBJECTIVE: Blood pressure 133/68, heart rate 79, respiratory 18, temperature 98 degrees, 100% on room air.Cardiovascular: Regular rate and rhythm. Pulmonary: Bilateral breath sounds. Clear to auscultation. GI: Soft, nontender, nondistended. Bowel sounds were positive. Extremities: No clubbing or cyanosis. Lymphatics: No peripheral edema. Neurological: Nonfocal. Abdominal Exam: He was distended. LABORATORY DATA: Creatinine is up to 2.1, but besides that, he seems to be doing no major issues there. PROBLEM LIST: 1. Hepatic encephalopathy, seems to be at his baseline. Patient clinically improved. 2. Cirrhosis, compensated somewhat. Anyway, at least is Child class B, if not C, between his hepatic encephalopathy and refractory ascites. He is on medical management at this point. There seems to be some incongruence between what the family states and Dr. Henriquez has stated. He has been set up for transplant and has not made appointments and therefore has not been listed. The family states that Dr. Henriquez said not to go for the transplant evaluations, which I think is not accurate, I think that is just how this has been interpreted. In any case, he is a terminal patient. Hospice would be appropriate but the is not on board with that at this point despite numerous conversations over numerous different admissions. DISPOSITION: It is difficult. We are pursuing rehab days if available, although right now we are having difficulty with placement. He may end up having to go home. cc: Rufino Slater MD
[2017-03-16] MEDS: PROTONIX PO SCH ×3 (20:03→20:54)
[2017-03-17] MEDS: PROTONIX PO SCH ×3 (05:57→23:13)
[2017-03-17 05:59] LABS: HEMATOCRIT 26.3 % (42.0-52.0); MCH 35.6 PG (27-31); MCHC 34.2 g/dL (33-37); MPV 9.5 FL (7.4-10.4); RBC 2.53 XMIL (4.7-6.1)
[2017-03-17 06:12] LABS: CALCIUM 8.8 mg/dL (8.8-10.2); POTASSIUM 5.6 mmol/L (3.5-5.1)
[2017-03-17] MEDS: HUMULIN R SUBQ SCH ×4 (06:13→23:14)
[2017-03-17] MEDS: ICAR-C PO SCH ×2 (10:21→23:13)
[2017-03-17] MEDS: CARAFATE LIQUID PO SCH ×2 (10:21→23:13)
[2017-03-17] MEDS: CENTRUM SILVER PO SCH (10:21)
[2017-03-17] MEDS: XIFAXAN PO SCH ×2 (10:21→23:13)
[2017-03-17] MEDS: LACTULOSE PO SCH ×3 (10:21→23:13)
[2017-03-17] MEDS: PATIENT'S OWN MED PO SCH (10:22)
[2017-03-17] MEDS ORDERED: KAYEXALATE PO ONE (12:23)
--- NOTE | 2017-03-17 18:08 | PROGRESS NOTE ---
DATE: 03/17/2017 SUBJECTIVE: Patient has no focal complaints. OBJECTIVE: Vital signs: Blood pressure 93/62, heart rate 77, respiratory 20, temperature 97.9 degrees. Cardiovascular: Regular rate and rhythm. Pulmonary: Distention of abdomen but is stable. LABS: Hemoglobin and hematocrit 9 and 26, platelets 69,000, white count 4000. BUN, creatinine 50 and 2, potassium 5.6. PROBLEM LIST: 1. Hepatic encephalopathy that seems to be in a baseline, he is on lactulose and Xifaxan. 2. 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 We are continuing medical management. He has missed his transplant appointment so is no longer able to participate in their care however family is having difficulty with disposition with him at this point because they do not necessarily want to pursue hospice, we are trying to find rehab days for this patient. Will continue to follow. DISPOSITION: Plan for rehab when stabilized. cc: Rufino Slater MD
[2017-03-17] MEDS: OXY IR PO PRN (19:32)
[2017-03-18] MEDS: PROTONIX PO SCH (06:10)
[2017-03-18] MEDS: HUMULIN R SUBQ SCH ×2 (06:10→12:41)
[2017-03-18 06:12] LABS: HEMOGLOBIN 8.5 g/dL (14.0-18.0); MCH 36.2 PG (27-31); RBC 2.35 XMIL (4.7-6.1)
[2017-03-18 06:22] LABS: CALCIUM 8.4 mg/dL (8.8-10.2)
[2017-03-18 06:47] LABS: HEMATOCRIT 24.6 % (42.0-52.0); MCHC 34.6 g/dL (33-37); MCV 104.7 FL (81-99); MPV 10.4 FL (7.4-10.4)
[2017-03-18] MEDS ORDERED: LEVAQUIN PO SCH (10:15)
[2017-03-18] MEDS: ICAR-C PO SCH (10:36)
[2017-03-18] MEDS: CARAFATE LIQUID PO SCH (10:36)
[2017-03-18] MEDS: LACTULOSE PO SCH (10:36)
[2017-03-18] MEDS: XIFAXAN PO SCH (10:36)
[2017-03-18] MEDS: CENTRUM SILVER PO SCH (10:36)
[2017-03-18] MEDS: PATIENT'S OWN MED PO SCH (10:37)
[2017-03-18 11:32] VITALS: BP 95/65
--- NOTE | 2017-03-18 11:57 | PROGRESS NOTE ---
DATE: 03/18/2017 SUBJECTIVE: Patient currently sitting in a chair. He is able to eat better today. He denies any new complaints. He does have obvious abdominal distention secondary to ascites. He denies any nausea, vomiting, vomiting blood, or passing black stools. He denies any fevers , rigors, or chills. PHYSICAL EXAMINATION: Vital Signs: Temperature 98.2, pulse rate 79, respiratory rate 18, blood pressure 100/65, saturating 100% on room air. General Appearance: He is thinly built, sitting in a chair, in no acute distress. HEENT: No pallor. No icterus. Neck: Supple. Chest: Decreased breath sounds at the bases. Cardiovascular: Regular rhythm. No murmur. Abdomen: Distention noted. Positive ascites. No rebound or guarding. Bowel sounds heard. Extremities: No cyanosis, clubbing. Neurologic: He is alert, awake, answers questions. LABS: His hemoglobin and hematocrit are 8.5 and 24.6, white count of 3.74, platelet count of 72,000, MCV of 104.7. INR 1.26, PT of 13.4. Sodium 138, potassium 4, chloride 102, bicarb 21, anion gap 13, BUN of 43, creatinine of 2.1, glucose of 92, calcium is 8.4. Ammonia level yesterday was 133. Urinalysis showed trace protein. His fluid studies from the peritoneal fluid showed 94 white cells with 18% polymorphonuclears white cells, although this was done while the patient was on antibiotics. He could still have SBP. Serology, AFB smear was negative. No AFB seen. IMPRESSION AND PLAN: 1. Anemia, likely secondary to chronic liver disease and portal hypertension, and portal hypertensive gastropathy. We will check the Hemoccult while he is here. We will continue to watch and type and cross, transfuse to keep hematocrit more than 23%. We will keep him on Iron-C twice a day and multivitamin once daily. 2. Ascites, which is slowly getting worse but he did not tolerate his Lasix and Aldactone as it caused worsening of his renal function. In the meanwhile, we keep him on a free fluid restriction to less than 1.5 L in 24 hours and also keep him on a low sodium diet with less than 2 g in 24 hours. 3. We will use radiology assisted paracentesis as needed. 4. Question of spontaneous bacterial peritonitis. We will continue him on Levaquin for 2 weeks, 500 mg once daily for 2 weeks. 5. Hepatic encephalopathy. We will continue Xifaxan 550 mg by mouth twice a day and lactulose 45 mL 3 times daily. 6. End-stage liver disease and liver cirrhosis attributed to fatty liver disease. We will continue to watch closely. Again, encouraged the patient to continue with a followup at [facility] with Dr. Smith. 7. Gastrointestinal prophylaxis with proton pump inhibitors. 8. Continue supportive care. I discussed the entire plan of care with the patient and all questions answered. I discussed the above plan of care with patient's by phone and all questions were answered. cc: MD Rufino Cruz MD Allen J. Schmidt, MD MTDD
[2017-03-18 13:57] LABS: RETIC% 2.53 % (0.8-2.1); RETIC-HE 44.8 PG (28.2-36.6)
[2017-03-18 14:49] LABS: IRON SATURATION 90 %; TIBC 113 ug/dL; TOTAL IRON 102 ug/dL (53-167)
[2017-03-18 14:58] LABS: UNBOUND IRON 12 ug/dL (112-346)
--- NOTE | 2017-03-18 18:19 | CONSULTATION ---
DATE OF CONSULTATION: 03/18/2017 REASON FOR CONSULT: The patient has macrocytic anemia. HISTORY OF PRESENT ILLNESS: This patient with a known history of hepatitis C cirrhosis with end- stage liver disease, chronic ascites was found unresponsive at the rehabilitation center that he has been at. Denies clinical bleeding, bright red stool, no lumps, bumps, bone pain. Upon admission, his white count was 5.62, hemoglobin 9.1, hematocrit 25.9, platelet count was a 128,000. Creatinine was 1.8 and ammonia level was 216. The patient is currently on rifaximin and lactulose on low sodium diet with fluid restriction. GI is on board. He has had some IV albumin and patient's mental status has improved. He also underwent ultrasound-guided paracentesis on 03/11/2017 where they removed 8.1 L of fluid. He continues on low dose of Lasix and Aldactone and his hemoglobin trended down to 8.0 on 03/14 where he was given packed red blood cells. Hemoglobin today is 8.5 with an MCV of 104.7. His platelet count is 72,000, white count 3.74. We have been consulted to evaluate patient's anemia. REVIEW OF SYSTEMS: All other review of systems negative unless indicated in the HPI. PAST MEDICAL HISTORY: Hepatitis C and refractory ascites, end-stage liver disease, portal hypertension, cirrhosis of the liver and chronic kidney disease. SOCIAL HISTORY: Patient denies alcohol, illicit drug or tobacco use. ALLERGIES: No known allergies. HOME MEDICATIONS: Lasix, Xifaxan, Aldactone, Prilosec, lactulose. PHYSICAL EXAMINATION: Vital Signs: Stable. General: This is a chronically ill-appearing male in no acute distress. HEENT: Head is normocephalic, atraumatic. Pupils equal, round, symmetric. Cardiovascular: S1, S2 audible auscultation with no heaves, lifts, thrills. Pulmonary: Breath sounds clear to auscultation. Normal respiratory effort. Extremities: There is no edema. Musculoskeletal: Moves all extremities. Skin : No petechiae, ecchymosis or rash. DIAGNOSTIC DATA: White count 3.74, hemoglobin 8.5, hematocrit 24.6, platelet count 72,000. Sodium is 136, potassium 4.0, BUN 43, creatinine 2.1. His ammonia has come down to 133. ASSESSMENT/PLAN: 1. Macrocytic anemia. We are doing anemia profile on the patient. We are doing it on the blood prior to 03/14 as patient has had a blood transfusion on that day. Will make further recommendations. Transfuse p.r.n. 2. Hepatitis C with cirrhosis of the liver per primary team and GI. 3. Ascites status post paracentesis. 4. Chronic kidney disease stage 4. Continue current management. 5. Deep vein thrombosis prophylaxis with SCDs. Dictated by ADELITA Payne for Benoit Snell MD cc: ADELITA Payne MD [facility]
--- NOTE | 2017-03-20 10:15 | DISCHARGE SUMMARY ---
ADMISSION DATE: 03/08/2017 DISCHARGE DATE: 03/18/2017 ADDENDUM: Original date of discharge was 03/14/2017; however, the patient denied rehab through his insurance, and after speaking with the , she stated that the patient was too weak because he could not ambulate without help. He could only get to the bedside commode with support. She has no other family or support to assist her with the patient care at home. She stated she would not be able to leave her house or even go to the bathroom without fear that he would fall and be injured. We did discuss at length the options of placement into long-term care or asking other family members who live out of town if they could assist in his home care and give her some support and relief occasionally. We discussed this with Dr. Slater on 03/15/2017. Dr. Slater at that time agreed that the patient was a fall risk. He also did a peer to peer with the insurance. The patient is still not able to ambulate without a walker or with 1-2 people assisting him with a belt. He is still unable to get up to the bedside commode alone without assistance and he also requires assistance for feeding. After the peer to peer with insurance company he has been approved for rehab. His chose [facility] re[facility]. He will be discharged there today. There have been no acute changes in his status since his original discharge date. PHYSICAL EXAMINATION: Vital signs at the time of his discharge, temperature is 98.2 degrees, heart rate 79, respirations 18, blood pressure is 100/65, O2 is 100% on room air. DISCHARGE MEDICATIONS: 1. Icar C 1 each p.o. daily. 2. Lactulose 45 mL p.o. t.i.d. 3. Levaquin 500 mg p.o. daily. 4. Centrum Silver 1 each p.o. daily. 5. Prilosec 40 mg p.o. daily. 6. Xifaxan 550 mg p.o. b.i.d. 7. Aldactone 12.5 mg p.o. daily. 8. Viread 300 mg p.o. daily. FOLLOW-UP: Mr. Ndiaye will be discharged to [facility]. He will need to continue free water restriction of 1.5 L per day and a low-sodium diet 2 g in 24 hours. 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 Mr. Ndiaye can return to the ED for any worsening of symptoms. Of note: The patient has missed his transplant appointment and the family does not want to pursue hospice again so he will be going back to rehab or the will consider long-term placement. DISCHARGE TIME: Greater than 30 minutes. Dictated by ADELITA Lala for Theodore Borrego MD cc: Theodore Borrego MD
== END 2017-03-18 16:19 ==
LOC: ED 08:36 → ICU 11:28 → SUATTDRO 11:28 → 4N 03-10 11:55
PROVIDERS: ATTEND Emergency Medicine

== ENCOUNTER 2017-04-05 06:12 | Inpatient (IN) ==
--- NOTE | 2017-04-05 06:31 | PROVIDER DOCUMENTATION ---
HPI-Neurological Disorder - General Chief Complaint: Altered Mental Status Stated Complaint: AMS Time Seen by Provider: 04/05/17 06:15 Source: EMS Allergies/Adverse Reactions: Patient Allergies Allergy/AdvReac Type Severity Reaction Status Date / Time No Known Allergies Allergy Verified 04/05/17 07:36 Home Medications: Home Medication List Medication Instructions Recorded Confirmed Last Taken Type Iron Carbonyl/Ascorbic Acid 1 each PO DAILY #30 tablet 12/21/16 04/05/17 07:00 Rx [Icar-C] Lactulose 45 ml PO TID@0900,1500,2100 #1 udc 12/21/16 04/05/17 04/04/17 07:00 Rx Omeprazole [Prilosec] 40 mg PO DAILY@0700 #90 capsule 02/19/17 04/05/17 07:00 Rx Rifaximin [Xifaxan] 550 mg PO BID #60 tablet 02/20/17 04/05/17 04/04/17 20:00 Rx Levofloxacin [Levaquin] 500 mg PO DAILY #9 tablet 03/14/17 04/05/17 04/04/17 08: 30 Rx Spironolactone [Aldactone] 12.5 mg PO DAILY #60 tablet 03/14/17 04/05/17 08:30 Rx - History of Present Illness-Neuro Nature of Presenting Problem: 72 y/o AAM with a PMHx of cirrhosis that presents to the ED with AMS. Pt received paracentesis one day prior and became "somewhat" altered at that time. Pt woke this morning with increasing fussiness and irritability. Severity: reports: severe Onset/Duration: reports: 24 hours ago Timing: reports: still present Character of Altered Mental Status: reports: combative, agitated Any recent trauma/injury?: reports: none Cognitive Baseline: other (pleasant) Similar Symptoms Previously?: Yes Recently seen or treated by another doctor?: Yes Review of Systems - Adult - REVIEW OF SYSTEMS - ADULT Constitutional: reports: no symptoms reported Eyes: reports: no symptoms reported Ears, Nose, Mouth & Throat: reports: no symptoms reported Cardiovascular: reports: no symptoms reported Respiratory: reports: no symptoms reported Gastrointestinal: reports: no symptoms reported Genitourinary: reports: no symptoms reported Musculoskeletal: reports: no symptoms reported Integumentary: reports: no symptoms reported Neurological: reports: no symptoms reported Psychiatric: reports: other (altered mental status) Endocrine: reports: no symptoms reported Hematologic/Lymphatic: reports: no symptoms reported Allergic/Immunologic: reports: no symptoms reported Past History - Adult - PAST MEDICAL HISTORY-ADULT Review of Records: reports: Old Records Reviewed, Nursing Assessment Review, Medications Reviewed Major Childhood Illnesses: reports: denies history Cardiovascular: reports: HTN, hyperlipidemia Respiratory: reports: denies history Gastrointestinal: reports: hepatitis (b), liver disease (cirrhosis) Obstetrical/Gynecological: reports: denies history Genitourinary: reports: denies history Musculoskeletal: reports: denies history Neurological: reports: denies history Endocrine/Immune: reports: Diabetes Other Conditions: reports: denies history - PRIOR SURGERIES/PROCEDURES Surgical/Procedure History: reports: reviewed, not pertinent - IMMUNIZATION STATUS Childhood Immunizations: See Nurse Assessment Flu Vaccine: See Nurse Assessment - FAMILY HISTORY Family History: reviewed, not pertinent - SOCIAL HISTORY Smoking: denies Living Situation: family Physical Exam- Neurological - Physical Exam-Neuro Initial Vital Signs Reviewed: Yes General Appearance: alert, no apparent distress, cachetic, thin, combative Eye Exam: bilateral eye: normal inspection, PERRL, EOMI HENMT: normocephalic/atraumatic, moist mucous membranes, pharyngeal erythema, tonsillar exudate Head Injury: no evidence of injury. negative: active bleeding, [place]'s Sign, contusions, flap, lacerations, raccoon eyes, swelling Neck: full range of motion, supple, normal inspection Respiratory: chest non-tender, lungs clear, normal breath sounds. negative: crackles, rales, rhonchi, stridor, wheezing Cardiovascular: normal peripheral pulses, regular rate, rhythm, no murmur Abdominal Exam: normal bowel sounds, non tender, distended, hernia. negative: guarding, rebound, tenderness Lymphatic: no adenopathy Extremity: normal range of motion, non-tender. 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 negative: weak motor strength RUE, weak motor strength LUE, weak motor strength RLE, weak motor strength LLE Neurologic: negative: facial droop, focal weakness, motor weakness Integumentary: abrasion(s) (right knee, left flank) Psych/Mental Status: anxious, other (agitated) - Glascow Coma Scale Best Eye Response: (4) open spontaneously Best Verbal Response: (3) inappropriate words Best Motor Response: (6) obeys commands Total Glascow Score: 13 Progress - PLAN OF CARE/RESULTS Progress/Plan/Lab Results: Vital Signs - 8 hr 04/05/17 06:15 04/05/17 08:16 04/05/17 08:17 Temperature 95.1 F L Pulse Rate 61 92 H Respiratory Rate 14 16 Blood Pressure 100/73 120/81 O2 Sat by Pulse Oximetry 99 100 04/05/17 08:18 Temperature Pulse Rate 68 Respiratory Rate 18 Blood Pressure 120/81 O2 Sat by Pulse Oximetry 100 Laboratory Results - last 24 hr 04/05/17 04/05/17 04/05/17 06:20 06:25 06:45 WBC RBC Hgb Hct MCV MCH MCHC RDW Std Deviation Plt Count MPV Immature Gran % (Auto) Neut % (Auto) Lymph % (Auto) [place] % (Auto) Eos % (Auto) Baso % (Auto) Immature Gran # (Auto) Neut # (Auto) Lymph # (Auto) [place] # (Auto) Eos # (Auto) Baso # (Auto) PT INR Sodium Potassium Chloride Carbon Dioxide Anion Gap BUN Creatinine Estimated GFR/1.73 m2 BUN/Creatinine Ratio Glucose POC Glucose 237 H Calculated Osmolality Calcium Total Bilirubin AST ALT Alkaline Phosphatase Ammonia 190 H Total Protein Albumin Globulin Albumin/Globulin Ratio Urine Source CLEAN CATCH Urine Color YELLOW Urine Turbidity CLEAR Urine pH 6.0 Ur Specific [place] 1.022 Urine Protein NEGATIVE Ur Glucose (Stick) NEGATIVE Ur Ketones (Stick) NEGATIVE Urine Blood NEGATIVE Urine Nitrite NEGATIVE Urine Bilirubin NEGATIVE Urobilinogen Dipstick NORMAL Urine Leukocytes NEGATIVE Urine WBC (Auto) <10 Urine RBC (Auto) <10 U Epithel Cells (Auto) <10 Urine Bacteria (Auto) NEGATIVE 04/05/17 04/05/17 04/05/17 06:45 06:45 06:45 WBC 4.11 L RBC 2.99 L Hgb 10.9 L Hct 31.7 L MCV 106.0 H MCH 36.5 H MCHC 34.4 RDW Std Deviation 15.7 H Plt Count 100 L MPV 10.4 Immature Gran % (Auto) 0.7 H Neut % (Auto) 61.1 Lymph % (Auto) 22.6 [place] % (Auto) 9.5 H Eos % (Auto) 5.1 Baso % (Auto) 1.0 H Immature Gran # (Auto) 0.03 Neut # (Auto) 2.51 Lymph # (Auto) 0.93 L [place] # (Auto) 0.39 Eos # (Auto) 0.21 Baso # (Auto) 0.04 PT 12.6 H INR 1.19 Sodium 137 Potassium 5.3 H Chloride 105 Carbon Dioxide 21 L Anion Gap 11 BUN 40 H Creatinine 1.5 H Estimated GFR/1.73 m2 46 BUN/Creatinine Ratio 27 Glucose 175 H POC Glucose Calculated Osmolality 288 Calcium 8.4 L Total Bilirubin 1.13 H AST 38 H ALT 23 Alkaline Phosphatase 120 Ammonia Total Protein 6.4 Albumin 3.2 L Globulin 3.2 Albumin/Globulin Ratio 1.0 Urine Source Urine Color Urine Turbidity Urine pH Ur Specific [place] Urine Protein Ur Glucose (Stick) Ur Ketones (Stick) Urine Blood Urine Nitrite Urine Bilirubin Urobilinogen Dipstick Urine Leukocytes Urine WBC (Auto) Urine RBC (Auto) U Epithel Cells (Auto) Urine Bacteria (Auto) Orders Category Date Time Status CHEST-PORTABLE [RAD] Stat Exams 04/05/17 06:46 Completed PELVIS [RAD] Stat Exams 04/05/17 06:47 Completed AMMONIA [CHEM] Stat Lab 04/05/17 06:45 Completed CBC WITH ELECTRONIC DIFF [HEME] Stat Lab 04/05/17 06:45 Completed COMPREHENSIVE METABOLIC PANEL [CHEM] Stat Lab 04/05/17 06:45 Completed PROTIME WITH INR [COAG] Stat Lab 04/05/17 06:45 Completed URINALYSIS W/POSS RFLX CULT [URINALYSIS] Stat Lab 04/05/17 06:25 Completed Lactulose Med 04/05/17 07:39 Discontinued 30 ml PO NOW ONE Result Diagrams: 04/05/17 06:45 04/05/17 06:45 - EKG 1 Time of EKG reading by physician:: 08:05 EKG Read and Signed by:: Alec Ortega Jr EKG Interpretation (*Must complete 3 of following elements*): Normal Rate: 70 Rhythm: normal sinus [place]: normal QRS: normal [place] Interval: normal ST Wave: normal - XRAY 1 XRAY Study: Chest Comparison with other Films: no changes (stable per radiology) 2 XRAY Study: Pelvis, Hip Impression: Abnormal XRAY Interpretation: Osteoarthritis - CONSULTS/PCP/HOSPITALIST Notification #1 *Consult/PCP/Hospitalist*: Dr. Slater Time Discussed: 09:00 Consult Disposition: Admit, other (Admit under Dr. Yadav) Departure - Departure Date of Disposition Decision: 04/05/17 Time of Disposition Decision: 09:01 DIAGNOSIS: Hepatic encephalopathy, Hyperkalemia, Acute renal insufficiency Ascites Qualifiers: Ascites type: other type Qualified Code(s): R18.8 - Other ascites Disposition: ADMITTED INPATIENT Certified Medical Emergency: Emergent Condition: Good Referrals and Follow-Ups: None,PCP [Primary Care Provider] - - Critical Care Note This patient required my direct & personal management of CC.: No
[2017-04-05 07:09] LABS: URINE CULTURE NEEDED? NO; URINE MICRO REVIEW NEEDED? NO; URINE SOURCE CLEAN CATCH
[2017-04-05 07:19] LABS: BILIRUBIN URINE NEGATIVE (NEGATIVE); BLOOD URINE NEGATIVE (NEGATIVE); COLOR YELLOW; GLUCOSE URINE NEGATIVE (NEGATIVE); LEUKOCYTES URINE NEGATIVE (NEGATIVE); NITRITE URINE NEGATIVE (NEGATIVE); PROTEIN URINE NEGATIVE (NEGATIVE); SP GRAVITY URINE 1.022; TURBIDITY URINE CLEAR (CLEAR); UROBILINOGEN URINE NORMAL (NORMAL)
[2017-04-05 07:20] LABS: UR EPITHELIAL CELLS <10 /HPF (<10); URINE BACTERIA NEGATIVE /HPF; URINE RBC <10 /HPF (<10); URINE WBC <10 /HPF (<10)
[2017-04-05 07:25] LABS: INR 1.19; PROTIME 12.6 Seconds (9.2-11.7)
[2017-04-05 07:28] LABS: EOS# 0.21 X1000 (0.0-0.7); EOS% 5.1 % (0.0-10.0); HEMATOCRIT 31.7 % (42.0-52.0); HEMOGLOBIN 10.9 g/dL (14.0-18.0); IMM GRAN# 0.03 X1000 (0.0-0.04); IMM GRAN% 0.7 % (0.0-0.5); LYMPH# 0.93 X1000 (1.2-3.4); LYMPH% 22.6 % (20.5-51.1); MANUAL DIFF NEEDED? NO; MCH 36.5 PG (27-31); MCHC 34.4 g/dL (33-37); MONO# 0.39 X1000 (0.11-0.59); MONO% 9.5 % (1.7-9.3); MPV 10.4 FL (7.4-10.4); NEUT% 61.1 % (42.2-75.2); PLT 100 X1000 (130-400); RBC 2.99 XMIL (4.7-6.1)
[2017-04-05] MEDS ORDERED: LACTULOSE PO ONE (07:39)
--- NOTE | 2017-04-05 07:40 | Diag Imaging Result Doc PS360 ---
EXAM: CHEST-PORTABLE HISTORY: altered mental status TECHNIQUE: AP semiupright portable at 0729 COMMENT: The inspiration is suboptimal. Considering differences in inspiration there is been no significant change since 03/08/2017. IMPRESSION: Stable chest. Electronically signed by Saeid Enciso 04/05/2017 7:38 AM
--- NOTE | 2017-04-05 07:41 | Diag Imaging Result Doc PS360 ---
EXAM: PELVIS HISTORY: fall TECHNIQUE: Two views COMMENT: Study is somewhat technically suboptimal particularly the AP view. There is narrowing of the central lobe hip joint space on the right and probably also on the left. No definite evidence of acute fracture or dislocation is present. IMPRESSION: Osteoarthritis. Electronically signed by Saeid Enciso 04/05/2017 7:39 AM
[2017-04-05 07:43] LABS: ALBUMIN 3.2 g/dL (3.5-5.0); CALCIUM 8.4 mg/dL (8.8-10.2); POTASSIUM 5.3 mmol/L (3.5-5.1); TOTAL BILIRUBIN 1.13 mg/dL (0.20-1.00); TOTAL PROTEIN 6.4 g/dL (6.3-8.3)
[2017-04-05] MEDS ORDERED: LACTULOSE MISC ONE (09:21)
--- NOTE | 2017-04-05 10:05 | Diag Imaging Result Doc PS360 ---
EXAM: HEAD W/O CONTRAST INDICATION: AMS COMPARISON: 03/08/2017 FINDINGS: There is no evidence of acute infarct given the limited sensitivity of CT versus MRI. There is no discrete intracranial mass, mass effect, or intracranial hemorrhage. The surrounding soft tissues and bony structures are essentially unremarkable. IMPRESSION: No evidence of acute intracranial pathology. Electronically signed by Jaden Velez 04/05/2017 10:03 AM
[2017-04-05] MEDS: ROCEPHIN 2 GM/NS 2 GM/50 ML IVPB IV SCH (10:19)
--- NOTE | 2017-04-05 10:54 | HISTORY AND PHYSICAL ---
ELECTRICAL INSTALLATION INSPECTOR: Dr. Henriquez. PRIMARY CARE PHYSICIAN: Dr. Montez Kumar. CHIEF COMPLAINT: Obtundation. HISTORY OF PRESENT ILLNESS: Mr. Ndiaye is a 72-year-old male, well known to our service with a history of end-stage liver disease, refractory ascites, portal hypertension, hepatitis C, who currently resides at [facility]. He has had multiple admissions in the past for hepatic encephalopathy and returns today for obtundation reported by the detention. When he got to the ER today ammonia level was noted to be 190. He has other laboratory data abnormalities including anemia and renal disease but this is all chronic and overall stable. On physical exam, the patient is obtunded. He does localize to pain and will open his eyes and he is able to tell us his name but otherwise completely disoriented. He will not follow commands appropriately. He is now going to be admitted for further treatment and evaluation. A head CT has been ordered as well. Of note, the patient does have fairly severe abdominal pain to palpation. PAST MEDICAL HISTORY: 1. End-stage liver disease. 2. Portal hypertension. 3. Hepatitis C. 4. Hypertension. 5. Hyperlipidemia. 6. Chronic kidney disease stage 3-4. SURGICAL HISTORY: He has had a cyst removed from his abdomen and multiple paracenteses. SOCIAL HISTORY: No current history of alcohol, tobacco, or drug use. He currently resides at [facility]. FAMILY HISTORY: Noncontributory. REVIEW OF SYSTEMS: Unable to be obtained. ALLERGIES: No known drug allergies. HOME MEDICATIONS: Icar C, 1 daily, lactulose 45 mL p.o. t.i.d., Levaquin 500 mg daily, Prilosec 40 mg daily, rifaximin 550 mg b.i.d. Aldactone 12.5 mg daily. PHYSICAL EXAMINATION: VITAL SIGNS: Blood pressure is 120/81, heart rate 68, respiratory rate 18, O2 saturation 100% room air, temperature is 95.1 degrees. GENERAL: This is a chronically ill appearing, 72-year-old male , lying in hospital bed, obtunded. NEUROLOGIC: The patient is obtunded but will open his eyes to painful stimulus. He is able to tell us his name but otherwise completely disoriented. He will follow commands appropriately. HEENT: Head is atraumatic and normocephalic. His pupils are equal and reactive bilaterally. Oral mucosa is moist. Oropharynx is clear. Trachea is midline. There is no JVD. CHEST: Clear to auscultation bilaterally. CV: Regular rate and rhythm. S1, S2 is noted. GI: Overtly distended. He has severe pain to palpation in all quadrants. Belly is overall soft with hypoactive bowel sounds. EXTREMITIES: Trace edema. No clubbing or cyanosis. Pulses are palpable bilaterally. DIAGNOSTIC DATA: WBC 4.11, hemoglobin 10.9, hematocrit 31.7, MCV 106, platelet count 100,000. PT 12.6, INR 1.19. Sodium 137, potassium 5.3, chloride 105, CO2 21, anion gap 11, BUN 40, creatinine 1.5, glucose 175, calcium 8.4, total bilirubin 1.13, AST 38, ALT 23, ammonia 190 , albumin 3.2. UA is negative. Hip, pelvis, and chest x-ray all negative for acute process. ASSESSMENT AND PLAN: 1. Hepatic encephalopathy: The patient returns with symptoms consistent with hepatic encephalopathy. We are going to order a head CT, however. We have ordered a rectal lactulose. Will continue his Aldactone and rifaximin as well. Continue neuro checks and rectal lactulose until he is able to take p.o. medications. 2. Abdominal pain: We are going to get therapeutic paracentesis done by IR. Will send fluid off for cytology. We will also order blood cultures and start Rocephin 2 g IV for SBP prophylaxis. 3. Chronic kidney disease: Chronic and stable. Continue to monitor. 4. Pancytopenia: Overall chronic and stable. Will continue to monitor. Continue his Icar. Try to improve his nutrition. 5. End-stage liver disease/cirrhosis/hepatitis C: This is all chronic and overall all stable. We are going to check an ultrasound of his belly and therapeutic paracentesis. 6. Gastroesophageal reflux disease. We will add IV Protonix. 7. Deep vein thrombosis prophylaxis with SCDs and TEDs given his thrombocytopenia and liver failure. Dictated by ADELITA Ng for Rommel Yadav MD cc: ADELITA Ng MD Seen and examined patient and agree with the above evaluation and plan Hepatic encephalopathy: Lactulose and rifaximin therapy. MTDD
[2017-04-05] MEDS ORDERED: SODIUM CHLORIDE 0.9% INJ SCH (10:57)
--- NOTE | 2017-04-05 11:55 | EKG Report ---
Test Performed on : 04/05/2017 08:05:28 AM Test Reason : ED. Not ordered in [place] Blood Pressure : / mmHG Vent. Rate : 070 BPM Atrial Rate : 070 BPM P-R Int : 130 ms QRS Dur : 074 ms QT Int : 414 ms P-R-T Axes : 055 035 038 degrees QTc Int : 447 ms Normal sinus rhythm. Normal ECG When compared with ECG of 08-MAR-2017 08:41, No significant change was found Unconfirmed Result
[2017-04-05 14:05] LABS: DIFF NEEDED? YES; WBC BF 81 /cumm
--- NOTE | 2017-04-05 14:15 | Diag Imaging Result Doc PS360 ---
US PARACENTESIS - 04/05/2017 INDICATION: hepatic encephalopathy/ R/o SBP COMPARISON: 04/03/2017 FINDINGS: Written consent was obtained by proxy from the patient's due to the patient's altered mental status. Ultrasound scanning demonstrated ascites. Overlying skin was prepped and draped in sterile fashion. Local anesthesia was achieved with injection of 10 cc 1% lidocaine. The paracentesis catheter was advanced until the return of ascites fluid. 6 L was aspirated. The catheter was withdrawn intact. There were no known complications. IMPRESSION: Technically successful ultrasound-guided paracentesis with no known complications. Electronically signed by Jaden Velez 04/05/2017 2:13 PM
[2017-04-05 14:18] LABS: TOTAL PROT BODY FLUID 1.1 g/dL
[2017-04-05 14:20] LABS: MONOS 93 %; POLYS 7 %
[2017-04-05] MEDS: HUMALOG SUBQ SCH ×2 (17:44→21:11)
[2017-04-05] MEDS: PROTONIX IV SCH (18:04)
[2017-04-05] MEDS: XIFAXAN PO SCH (21:04)
[2017-04-06] MEDS: HUMALOG SUBQ SCH ×4 (05:59→21:20)
[2017-04-06 06:46] LABS: HEMOGLOBIN 10.1 g/dL (14.0-18.0); MCH 36.9 PG (27-31); MCHC 33.7 g/dL (33-37); MCV 109.5 FL (81-99); MPV 10.2 FL (7.4-10.4); RBC 2.74 XMIL (4.7-6.1)
[2017-04-06 07:17] LABS: ALBUMIN 2.7 g/dL (3.5-5.0); CALCIUM 8.5 mg/dL (8.8-10.2); POTASSIUM 4.6 mmol/L (3.5-5.1); TOTAL BILIRUBIN 1.26 mg/dL (0.20-1.00); TOTAL PROTEIN 5.8 g/dL (6.3-8.3)
[2017-04-06] MEDS: ALDACTONE PO SCH (10:01)
[2017-04-06] MEDS: ICAR-C PO SCH (10:01)
[2017-04-06] MEDS: XIFAXAN PO SCH ×2 (10:01→21:19)
[2017-04-06] MEDS: ROCEPHIN 2 GM/NS 2 GM/50 ML IVPB IV SCH (10:05)
[2017-04-06] MEDS: PROTONIX IV SCH (11:10)
--- NOTE | 2017-04-06 12:05 | PROGRESS NOTE ---
DATE: 04/06/2017 SUBJECTIVE: Today Mr. Ndiaye refers to be doing a whole lot better. Mentation is completely clear. He actually is asking to eat some food and wants to sit up in the chair. OBJECTIVE: Vital signs: Blood pressure is 107/65, pulse 73, respirations 16, temperature 98.4. General: Mr. Ndiaye is a 72-year-old male. He is in bed, no distress. HEENT: Mucosa is pink and moist. Anicteric and acyanotic. Neck: Supple. Chest: Clear. Cardiovascular: Regular rate and rhythm. Abdomen: Soft, distended. There is positive fluid shift. There is also a supraumbilical hernia and an umbilical hernia in place. MANAGER STATISTICS: The patient is alert and oriented x4. There is no focal neurologic deficit. DIAGNOSTIC DATA: WBC is 3.87, hemoglobin 10.1, platelet count of 98. Chemistries are reviewed. Sodium is 141, potassium 4.6, creatinine 106, bicarb 22, creatinine 1.3. So far, blood cultures are unremarkable. Yesterday the patient had 6 L of ascitic fluid removed. Ascitic fluid studies showed WBC of 81, the segment is only 7%, monocytes 93%. Albumin was 0.7 with serum albumin 2.1, SAG is more than 1.1, consistent with portal hypertension. Of note, the patient came in with ammonia level of 190, this morning is 62. ASSESSMENT: 1. Altered mental status secondary to hepatic encephalopathy. 2. Ascites secondary to portal hypertension. 3. Cirrhosis of the liver due to fatty liver disease and hepatitis C. 4. Chronic kidney disease stage 3A. PLAN: 1. In general, I think that Mr. Ndiaye is doing a whole lot better. He is status post paracentesis, 6 L was removed yesterday. His mentation has remarkably improved. We will continue with his lactulose and rifaximin and also his diuretic therapy. 2. The fluid analysis was actually not very consistent with spontaneous bacterial peritonitis. 3. For today, we are going to remove the Norton catheter, start Mr. Ndiaye on hepatic diet, get him to walk around some more. I think we might be able to discharge him tomorrow. cc: Rommel Yadav MD
[2017-04-07] MEDS: HUMALOG SUBQ SCH ×4 (06:17→22:03)
[2017-04-07 06:32] LABS: HEMATOCRIT 27.6 % (42.0-52.0); HEMOGLOBIN 9.3 g/dL (14.0-18.0); MCH 36.6 PG (27-31); MCHC 33.7 g/dL (33-37); MCV 108.7 FL (81-99); MPV 9.8 FL (7.4-10.4); RBC 2.54 XMIL (4.7-6.1)
[2017-04-07 06:50] LABS: ALBUMIN 2.6 g/dL (3.5-5.0); CALCIUM 8.1 mg/dL (8.8-10.2); POTASSIUM 4.6 mmol/L (3.5-5.1); TOTAL BILIRUBIN 0.55 mg/dL (0.20-1.00); TOTAL PROTEIN 5.7 g/dL (6.3-8.3)
[2017-04-07] MEDS: ALDACTONE PO SCH (09:34)
[2017-04-07] MEDS: ICAR-C PO SCH (09:34)
[2017-04-07] MEDS: ROCEPHIN 2 GM/NS 2 GM/50 ML IVPB IV SCH (09:34)
[2017-04-07] MEDS: XIFAXAN PO SCH ×2 (09:34→22:00)
[2017-04-07] MEDS: PROTONIX IV SCH (11:59)
--- NOTE | 2017-04-07 16:40 | PROGRESS NOTE ---
DATE: 04/07/2017 SUBJECTIVE: Mr. Ndiaye was admitted on 04/05/2017. This is a 72-year-old with obtundation. He is well known to our service with a history of end-stage liver disease, refractory ascites, portal hypertension, and hepatitis C, who resides at [facility]. Multiple admissions in the past for hepatic encephalopathy. Returned on 04/05/2017 with obtundation reported by [facility]. When he got to the ER ammonia level was 190. Other laboratory data abnormalities including anemia and renal disease but this is all chronic and overall stable. OBJECTIVE: General: Patient was obtunded. He does localize to pain and will open his eyes and able to tell his name. He is much better. Awake and alert and states he is eating. States he wants his Norton catheter out. Vital signs: Temp is 97.9 degrees, pulse 80, blood pressure 108/67. HEENT: Pupils are equal and round. Lungs: Clear in all lung mosqueda. Cardiovascular: Regular rhythm and rate without murmur or S3. Abdomen: Soft. Skin: Warm and dry. : Good urine output. LABS: Blood sugars 199, 160, 218. Lab from this morning, white count 4,340, hematocrit 27, platelet count 99,000. Chemistry: Sodium 135, potassium 4.6, chloride 105, bicarb 20, BUN 40, creatinine 1.4. Blood sugar is 160, 125, and 218. ASSESSMENT AND PLAN: 1. Altered mental status secondary to hepatic encephalopathy which has resolved. 2. Ascites secondary to portal hypertension. Minimal ascites at this time. 3. Cirrhosis of the liver due to fatty liver disease and hepatitis C. 4. Chronic kidney disease stage 3A. He is doing much better. He is status post paracentesis. They took 6 L off. He is to continue his lactulose and rifaximin. Hopefully remove his Norton catheter probably tomorrow. See if we can get [facility] back to the [facility]. REVIEW OF HIS ORDERS: I do not see any change. He is on spironolactone 12.5 mg daily, ceftriaxone 2 g q.24 hours, Xifaxan 550 mg b.i.d., Protonix 40 mg IV q.24 hours, iron carbinol and ascorbic acid 1 daily, lactulose 30 mL which he needs to take his lactulose 30 I think t.i.d. cc: Theodore Borrego MD
[2017-04-07] MEDS: LACTULOSE PO SCH (18:28)
[2017-04-08 07:43] LABS: HEMOGLOBIN 9.3 g/dL (14.0-18.0); MCH 36.9 PG (27-31); MCHC 34.4 g/dL (33-37); MCV 107.1 FL (81-99); MPV 10.2 FL (7.4-10.4); RBC 2.52 XMIL (4.7-6.1)
[2017-04-08] MEDS: HUMALOG SUBQ SCH ×4 (07:53→21:57)
[2017-04-08 08:14] LABS: ALBUMIN 2.7 g/dL (3.5-5.0); CALCIUM 8.1 mg/dL (8.8-10.2); POTASSIUM 4.3 mmol/L (3.5-5.1); TOTAL BILIRUBIN 0.53 mg/dL (0.20-1.00); TOTAL PROTEIN 5.9 g/dL (6.3-8.3)
[2017-04-08] MEDS: LACTULOSE PO SCH ×4 (10:07→20:21)
[2017-04-08] MEDS: ROCEPHIN 2 GM/NS 2 GM/50 ML IVPB IV SCH (10:07)
[2017-04-08] MEDS: XIFAXAN PO SCH ×2 (10:08→20:21)
[2017-04-08] MEDS: ICAR-C PO SCH (10:08)
[2017-04-08] MEDS: ALDACTONE PO SCH (10:08)
[2017-04-08] MEDS: PROTONIX IV SCH (10:08)
[2017-04-08] MEDS: TYLENOL PO PRN ×2 (11:17→21:56)
[2017-04-09] MEDS: HUMALOG SUBQ SCH ×2 (06:44→11:24)
[2017-04-09] MEDS: ICAR-C PO SCH (09:40)
[2017-04-09] MEDS: XIFAXAN PO SCH (09:40)
[2017-04-09] MEDS: ROCEPHIN 2 GM/NS 2 GM/50 ML IVPB IV SCH (09:40)
[2017-04-09] MEDS: ALDACTONE PO SCH ×2 (09:40→09:42)
[2017-04-09] MEDS: PROTONIX IV SCH ×2 (09:41→10:03)
[2017-04-09] MEDS: LACTULOSE PO SCH ×2 (09:41→14:22)
--- NOTE | 2017-04-09 13:33 | DISCHARGE SUMMARY ---
ADMISSION DATE: 04/05/2017 DISCHARGE DATE: His doctor is Dr. Montez Kumar. Plastic Panel Installer Dr. Henriquez. He presented on 04/05/2017 with obtundation. A 72-year-old well known to our service with history of end-stage liver disease, refractory ascites, portal hypertension, hepatitis C. Currently resides at [facility]. He had multiple admissions in the past for hepatic encephalopathy. Returned on 04/05/2017 with [facility]ation [facility]. When he got to the ER ammonia level was 190. Other laboratory abnormalities including anemia of renal disease but these were all chronic and overall stable. On physical exam patient was obtunded. On exam he does localize to pain and open his eyes and is able to tell and use his name otherwise and completely. He showed steady improvement. We put him back on the lactulose given his refraction and he was able to eat and swallow and good p.o. intake. Began physical therapy and felt he was ready go back to rehab on 04/09/2017. We did get a therapeutic paracentesis done and took some fluid off and he did have some abdominal pain so we gave him some Rocephin for a time, 2 g IV for what we thought was subacute bacterial peritonitis and this improved. The pain resolved. He does have some pancytopenia. Will continue his Icar and see if we can get him back to rehab. DISCHARGE MEDICATIONS: He is on iron and vitamin C. Icar 1 a day. Lactulose 30 mL p.o. t.i.d. Protonix 40 mg p.o. daily. Xifaxan 550 mg p.o. b.i.d. Spironolactone 12.5 mg daily. cc: Theodore Borrego MD
[2017-04-09 13:48] VITALS: BP 95/62
== END 2017-04-09 15:11 ==
LOC: ED 06:12 → SUATTDRO 10:46 → 3N 10:46
PROVIDERS: ATTEND Emergency Medicine